=== PATIENT | male | born 1945 | race Caucasian/White ===

== ENCOUNTER 2016-10-22 20:25 | Emergency (ER) | payer OTHER ==
[~2016-10-22] VITALS: Ht 188 cm; Wt 108.0 kg
[~2016-10-22 20:25] MED LIST: ASPI81TA28 PO; ENOX100I INJ
[2016-10-22 20:27] VITALS: TEMP 36.7; Ht 188 cm; Wt 108.0 kg
--- NOTE | 2016-10-22 20:51 | EMERGENCY ROOM VISIT NOTE ---
ED Visit Note First contact with patient: 20:39 Staff note: I have reviewed the Patients chart and have discussed this case with my PA. I generally agree with the ED note and findings.
[2016-10-22] MEDS ORDERED: WARF2.5T8 PO ×2 (20:59)
[2016-10-22] MEDS ORDERED: XYLOCAINE 1%/SOD BICARB 20 ML VIAL INFIL ONE (21:00)
--- NOTE | 2016-10-22 21:16 | DIAGNOSTIC IMAGING REPORT ---
LEFT KNEE 2 VIEWS HISTORY: the injury/laceration/fall COMPARISON: None. FINDINGS: There is no fracture or dislocation. Small joint effusion. Marked prepatellar soft tissue swelling and a small anterior soft tissue laceration. Left total knee arthroplasty. IMPRESSION: No fractures. Prepatellar soft tissue swelling and a small anterior soft tissue laceration. Electronically signed by: Leo Webster M.D. 10/22/2016 9:15 PM Dictated Date/Time: 10/22/2016 9:14 PM
--- NOTE | 2016-10-22 21:25 | DIAGNOSTIC IMAGING REPORT ---
HEAD CT NONCONTRAST CT DOSE: 687.98 mGy.cm HISTORY: fall/head injury/patient on Coumadin TECHNIQUE: Multiaxial CT images of the head were performed without the use of intravenous contrast. Automated exposure control was utilized for this study. Comparison: Head CT 06/27/2010. Findings: The paranasal sinuses and left mastoid air cells are clear. Postoperative changes within the right mastoid air cells, unchanged. The calvarium and skull base are intact. There is no mass, hematoma, midline shift, acute infarct. White matter hypodensity is nonspecific but suggestive of microvascular ischemic change. The ventricles and sulci demonstrate mild age-related involutional changes. 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 Impression: No acute intracranial abnormality. Atrophy and microvascular ischemic changes. Electronically signed by: Leo Webster M.D. 10/22/2016 9:24 PM Dictated Date/Time: 10/22/2016 9:18 PM
--- NOTE | 2016-10-22 22:03 | EMERGENCY ROOM VISIT NOTE ---
History First contact with patient: 20:39 Chief Complaint: LACERATION/CUT (SUT/DERMABOND) Stated Complaint: CUT ON KNEE (BLEEDING - ON COUMADIN) Nursing Triage Summary: Patient states "I tripped over some rocks at my house and must have caught one and sliced open below my knee. I'm on coumadin too. It won't stop bleeding." History of Present Illness The patient is a 71 year old male who presents to the Emergency Room with complaints of laceration to his left knee. The patient states that he has significant peripheral neuropathy and falls frequently due to the neuropathy. He states he was walking on some rocks and tripped and fell striking his left knee on a rock. The patient is currently on Coumadin and could not get the bleeding to stop. The patient has been able to bear weight on the knee. He does admit to prior knee replacement of this knee. The patient states he had his blood work today and his INR was 2.0. He states his prior INR was 4.0. The patient also states that he hit his head on a counter when he lost his balance earlier today. He denies any headache, visual changes or dizziness. The patient denies any loss of consciousness. Review of Systems 10 system review was performed and was negative unless stated otherwise history of present illness. Past Medical/Surgical History Medical Problems: (1) Benign hypertension (2) Blood Clot (3) Cholecystectomy (4) left leg blood clot Family History Cancer Heart disease Social History Smoking Status: Never Smoker Alcohol Use: occasionally Marital Status: Housing Status: lives with family Occupation Status: employed Current/Historical Medications Scheduled Atorvastatin (Lipitor), 40 MG PO QPM Donepezil Hydrochloride (Aricept), 20 MG PO DAILY Fluticasone Propionate (Nasal) (Flonase Allergy Relief), 2 SPRAYS TASHIA DAILY Lisinopril (Lisinopril), 20 MG PO DAILY Multiple Vitamins W/ Minerals (Ocuvite Adult 50+), 1 CAP PO DAILY Multivitamin (Multivitamin), 1 TABLET PO DAILY Ofloxacin (Oph) (Ocuflox Oph Soln), 4 DROPS OTR WK Sertraline HCl (Sertraline HCl), 150 MG PO DAILY Warfarin Sod (Jantoven), 2.5 MG PO TUESDAY Warfarin Sod (Jantoven), 1.25 MG PO 6XWK Allergies Coded Allergies: Adhesives (Verified Allergy, Intermediate, RED SKIN, 10/22/16) Latex (Unverified Allergy, Unknown, RASH, 10/22/16) Physical Exam Vital Signs Date Time Temp Pulse Resp B/P (MAP) Pulse Ox O2 Delivery O2 Flow Rate FiO2 10/22/16 20:27 36.7 63 18 156/79 96 Room Air Physical Exam GENERAL: This 21-year-old white male appears in no acute distress. MENTAL Status: Alert and oriented 3. HEAD: The patient has a small palpable lump on the forehead with a superficial abrasion. No active bleeding noted EYES: PERRLA. EOMs intact. EARS: Canals clear. TMs without hemotympanum NEURO: Grossly intact LEFT KNEE: No gross bony deformity noted. Generalized edema noted of the knee. There is a 3 cm laceration just inferior to the patella. The bleeding has now stopped. The wound looks clean. The patient is able to flex and extend his knee. No ligament instability noted. Medical Decision & Procedures ER Provider Diagnostic Interpretation: LEFT KNEE 2 VIEWS HISTORY: the injury/laceration/fall COMPARISON: None. FINDINGS: There is no fracture or dislocation. Small joint effusion. Marked prepatellar soft tissue swelling and a small anterior soft tissue laceration. Left total knee arthroplasty. IMPRESSION: No fractures. Prepatellar soft tissue swelling and a small anterior soft tissue laceration. HEAD CT NONCONTRAST CT DOSE: 687.98 mGy.cm HISTORY: fall/head injury/patient on Coumadin TECHNIQUE: Multiaxial CT images of the head were performed without the use of intravenous contrast. Automated exposure control was utilized for this study. Comparison: Head CT 06/27/2010. Findings: The paranasal sinuses and left mastoid air cells are clear. Postoperative changes within the right mastoid air cells, unchanged. The calvarium and skull base are intact. There is no mass, hematoma, midline shift, acute infarct. White matter hypodensity is nonspecific but suggestive of microvascular ischemic change. The ventricles and sulci demonstrate mild age-related involutional changes. 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 Impression: No acute intracranial abnormality. Atrophy and microvascular ischemic changes. Electronically signed by: Leo Webster M.D. 10/22/2016 9:24 PM Electronically signed by: Leo Webster M.D. 10/22/2016 9:15 PM Procedure Wound Repair: This was performed by the PA student under my direct supervision. Complexity: Basic. Verbal consent was obtained after the risks and benefits were explained, including but not limited to bleeding, scarring, infection, pain, and bone/joint /nerve damage. The skin was prepped with betadine and a sterile field set. The wound was anesthetized with 4.8 ml of 1% buffered lidocaine. With direct pressure the bleeding subsided. Copious irrigation was performed using sterile saline. The wound was explored for foreign bodies and none found. Debridement was not performed. The wound edges were approximated using4-0 Ethilon with 7 simple interrupted sutures. Hemostasis and excellent approximation was achieved. Antibacterial ointment and a sterile dressing applied. Detailed wound care instructions and signs and symptoms of infection reviewed with the patient. No complications and the patient tolerated the procedure well. ED Course The patient's EMR and medication list were reviewed. The patient was evaluated by myself and independently by Dr. العلي. A CT of the head was ordered and interpreted by the radiologist as above without any acute findings. X-ray of the left knee was ordered and interpreted by myself and the radiologist as above without any acute findings. The patient was informed of the x-ray and CT findings.. The patient's blood pressure was 156/79. The patient was informed of the elevated blood pressure and was instructed to follow with his family doctor in 2 days for blood pressure recheck. The patient verbalized understanding. laceration repair was performed as above. The patient was discharged home in stable condition. Medical Decision Differential diagnosis include fracture versus contusion of the left knee. The decision was made to CT the patient's head since he had a prior fall earlier today due to his severe peripheral neuropathy. The patient is on Coumadin and his last INR was 4.0 prior to today's INR of 2.0. Impression Primary Impression: Laceration of knee, left Additional Impressions: Contusion of knee, left Head contusion Departure Information Dispostion Home / Self-Care Condition GOOD Referrals Leno Salas M.D. (PCP) Forms HOME CARE DOCUMENTATION FORM, IMPORTANT VISIT INFORMATION Patient Instructions ED Head Injury Closed, My [facility] Additional Instructions Follow head injury handout instructions. Any problems return to the ER. Keep wound clean and dry. No water on the area for 12-24 hrs then no soaking until sutures removed. Do not allow any crusting or dried blood to accumulate on sutures. If this occurs, use a 1:1 solution of hydrogen peroxide/water on a Q-tip to clean the wound. Use an antibiotic ointment for 3-4 days, then let wound dry. Suture removal in 14 days. Follow up sooner for any signs of infection (increasing redness, swelling, drainage). Ice and elevate for swelling and pain. Tylenol 650 mg every 6 hrs for pain. Your blood pressure was elevated at today's ER visit. Recommend follow-up with your family doctor in 2 days for blood pressure recheck. Problem Qualifiers Primary Impression: Laceration of knee, left Encounter type: initial encounter Qualified Codes: S81.012A - Laceration without foreign body, left knee, initial encounter Additional Impressions: Head contusion Encounter type: initial encounter Contusion of head detail: other part of head Qualified Codes: S00.83XA - Contusion of other part of head, initial encounter
[2016-10-22 22:10] VITALS: BP 150/86; PULSE 67; O2SAT 99
[2016-10-30] MEDS ORDERED: ATOR-24 PO (06:43)
[2016-10-30] MEDS ORDERED: LSN20 PO (06:44)
[2016-10-30] MEDS ORDERED: MULTCAP94 PO (06:45)
[2016-10-30] MEDS ORDERED: DONE10TA12 PO (06:46)
[2016-10-30] MEDS ORDERED: SERT1TAB92 PO (06:49)
[2016-10-30] MEDS ORDERED: FLUT0.15 NAE (06:49)
[2016-10-30] MEDS ORDERED: OFLO0.3S OTR (06:49)
[2016-10-30] MEDS ORDERED: MULT-506 PO (09:30)
[2016-11-03] MEDS ORDERED: DXY100 PO (18:02)
[2017-04-04] MEDS ORDERED: OXYC-57 PO (11:43)
== END 2016-10-22 22:29 | disposition home or self-care (01) ==
LOC: C.EDB 20:28 → C.EDD 22:29
DX: S81.012A Laceration without foreign body, left knee, initial encounter (principal); S80.02XA Contusion of left knee, initial encounter; S00.83XA Contusion of other part of head, initial encounter; W01.0XXA Fall on same level from slipping, tripping and stumbling without subsequent striking against object, initial encounter; S00.81XA Abrasion of other part of head, initial encounter; G62.9 Polyneuropathy, unspecified; R29.6 Repeated falls; I10 Essential (primary) hypertension; Z79.01 Long term (current) use of anticoagulants; Z86.718 Personal history of other venous thrombosis and embolism; Z96.652 Presence of left artificial knee joint

== ENCOUNTER 2016-10-30 15:24 | Inpatient (IN) | payer OTHER ==
[~2016-10-30] VITALS: Ht 188 cm; Wt 108.8 kg
[~2016-10-30 15:24] MED LIST changes: -ASPI81TA28 PO; +ATOR-24 PO; +DONE10TA12 PO; -ENOX100I INJ; +FLUT0.15 NAE; +LSN20 PO; +MULT-506 PO; +MULTCAP94 PO; +OFLO0.3S OTR; +SERT1TAB92 PO; +WARF2.5T8 PO
[2016-10-30] MEDS ORDERED: ONDANSETRON INJ 2 MG/ML 2 ML VIAL IV STA (15:45)
[2016-10-30] MEDS ORDERED: MoRPHine SULFATE 4 MG/ML 1 ML CARP\\VIAL IV STA (15:45)
[2016-10-30] MEDS ORDERED: SODIUM CHLORIDE 0.9% 1000ML 1,000 ML IV STA (16:03)
[2016-10-30 16:24] LABS: BASO % 0.2 %; BASO ABS # 0.01 K/uL (0-0.2); COMPLETE YES; EOS % 3.3 %; HEMATOCRIT 37.8 % (42-52); LYMPH % 24.5 %; LYMPH ABS # 1.34 K/uL (1.2-3.4); MEAN CELL VOLUME 97.9 fL (80-100); MEAN CORPUSCULAR HEMOGLOBIN 33.2 pg (25-34); MEAN CORPUSCULAR HGB CONC 33.9 g/dl (32-36); MEAN PLATELET VOLUME 12.6 fL (7.4-10.4); MONO % 21.2 %; NEUT % 50.8 %; PLATELET COUNT 199 K/uL (130-400); RED BLOOD COUNT 3.86 M/uL (4.7-6.1); WHITE BLOOD COUNT 5.46 K/uL (4.8-10.8)
[2016-10-30 16:35] LABS: INR 2.9 (0.9-1.1); PARTIAL THROMBOPLASTIN RATIO 1.7; PROTHROMBIN TIME (PATIENT) 32.2 SECONDS (9.0-12.0)
--- NOTE | 2016-10-30 16:36 | DIAGNOSTIC IMAGING REPORT ---
LEFT TIBIA AND FIBULA 2 VIEWS; LEFT ANKLE 3 VIEWS CLINICAL HISTORY: Left leg swelling. FINDINGS: AP and crosstable lateral views of the left tibia and fibula with 3 views of the left ankle are obtained. No prior studies are available for comparison at the time of dictation. The skeletal structures are osteopenic. There is no radiographic evidence of left tibial or fibular fracture. No fracture is seen at the ankle joint. The ankle mortise is intact. A left knee arthroplasty is partially visualized. There is no ankle joint effusion. Diffuse soft tissue edema is seen throughout the imaged left lower extremity. No subcutaneous gas is seen. There are tiny dorsal and plantar calcaneal enthesophytes. IMPRESSION: Diffuse soft tissue edema with no acute bony abnormality identified involving the left tibia or fibula or at the left ankle joint. Electronically signed by: Kel Brooks M.D. 10/30/2016 4:35 PM Dictated Date/Time: 10/30/2016 4:32 PM
--- NOTE | 2016-10-30 16:38 | DIAGNOSTIC IMAGING REPORT ---
LEFT KNEE 3 VIEWS CLINICAL HISTORY: Left knee pain and swelling. FINDINGS: AP, crosstable lateral, and sunrise views of left knee are compared to study dated 10/22/2016. The skeletal structures are osteopenic. No fracture is identified. A left knee arthroplasty is in near anatomic alignment. There has been undersurface remodeling of the patella. No periprosthetic lucency is identified. A calcified fabella is incidentally noted. There is marked prepatellar soft tissue edema, as well as soft tissue swelling around the knee. A small joint effusion is noted. IMPRESSION: 1. Diffuse soft tissue edema, greatest an the prepatellar region. No acute bony abnormality is seen in the left knee and the findings are similar to the 10/22/2016 examination. 2. A left knee arthroplasty is in near anatomic alignment. Electronically signed by: Kel Brooks M.D. 10/30/2016 4:37 PM Dictated Date/Time: 10/30/2016 4:35 PM
[2016-10-30 16:42] LABS: BUN/CREATININE RATIO 11.4 (10-20); C-REACTIVE PROTEIN 1.82 mg/dl (0-0.29); CALCIUM 8.9 mg/dl (8.5-10.1); CREATININE 1.2 mg/dl (0.60-1.40); POTASSIUM 4.3 mmol/L (3.5-5.1)
[2016-10-30 16:46] LABS: ALB/GLOB RATIO 0.8 (0.9-2); CKMB/CK RATIO 1.5 (0-3.0)
[2016-10-30] MEDS ORDERED: SODIUM CHLORIDE 0.9% IV STA (16:53)
[2016-10-30] MEDS ORDERED: VANCOMYCIN IV STA (16:53)
[2016-10-30] MEDS ORDERED: PIPERACILLIN/TAZOBACTAM 4.5 GM/100ML D5W IV STA (16:53)
[2016-10-30] MEDS ORDERED: DUTACAP PO (16:56)
--- NOTE | 2016-10-30 17:19 | DIAGNOSTIC IMAGING REPORT ---
ULTRASOUND LEFT LOWER EXTREMITY VENOUS CLINICAL HISTORY: Left leg swelling. COMPARISON STUDY: Left lower extremity venous ultrasound dated 04/10/2016. TECHNIQUE: Real-time, grayscale, and color Doppler sonography of the deep veins of the left lower extremity was performed from the inguinal crease to the calf. Compression and augmentation were utilized. FINDINGS: There is a small amount of nonocclusive and likely chronic deep venous thrombosis identified within the mid to distal left superficial femoral vein and within the left popliteal vein. Some of this was clearly seen on the 04/10/2016 examination. This extends into the calf within the posterior tibial and peroneal veins. The common femoral and proximal superficial femoral vein are patent and normally compressible. There is partial duplication of the superficial femoral vein. The greater saphenous vein and the profunda femoris vein at the junction with the common femoral vein are clear. Simultaneous soft tissue edema is noted in the calf. IMPRESSION: There is trace and chronic appearing nonocclusive deep venous thrombosis identified in the mid to distal left superficial femoral as well as the left popliteal veins which extends into the calf. Electronically signed by: Kel Brooks M.D. 10/30/2016 5:18 PM Dictated Date/Time: 10/30/2016 5:12 PM
[2016-10-30] MEDS ORDERED: VANCOMYCIN INJ 2,650 MG in SODIUM CHLORIDE 0.9% 500ML 500 ML IV ONE (17:30)
--- NOTE | 2016-10-30 18:23 | EMERGENCY ROOM VISIT NOTE ---
ED Visit Note First contact with patient: 15:34 The patient was seen and examined with Cullen Yarbrough PA-C. I agree with the history, physical and findings. Please see the note for disposition and details
--- NOTE | 2016-10-30 18:37 | History and Physical ---
History & Physical Date & Time of Service: Oct 30, 2016 at 18:36 Chief Complaint: Knee And Ankle Pain, Possible Infection Primary Care Physician: Leno Salas M.D. History of Present Illness Source: patient, family ( ) This is a 71 yo Male with past medical hx of DVT on chronic anticoagulation with Coumadin , HTN , hyperlipidemia --who sustained a fall on 10/22/16 while tripping on a rock , striking his left against the rock , unable to stop bleeding -( on Coumadin ) pt mentions his gait has been unstable due to peripheral neuropathy , leading his to loss balance and fall was evaluated in ED -found to have 3 cm skin laceration on left inferior patella region , no bleeding noted, wound appeared to be clean , pt was able to flex and bend his knee xray of left knee showed : no Fx , prepatellar soft tissue swelling and a small anterior soft tissue laceration , Left knee laceration was sutured , antibacterial ointment and sterile dressing was placed pt was discharged home , instructed for stitch removal in 14 days at home pt continued to have pain and swelling on left knee which progressed to left lower leg and ankle region had progressive left lower ext swelling and erythema , increased tenderness today -unable to bear wt , has constant pain 7/10 -throbbing developed brisk bleeding on left knee laceration site did not had any fever or chills , no dizzy spell no further fall or trauma to the site called Dr Garcia office , pt was directed to come to ED for evaluation In the ER -pt;s left leg found to be diffusely edematous -worse since exam on marked erythema and tenderness with increased warmth no active bleeding noted on knee laceration site WBC count wnl /elevated for ESR , mild elevation of lactic acid Xray of TIB /fib , ankle and knee shows diffuse soft tissue swelling , no joint fluid noted on knee and ankle Xray Past Medical/Surgical History Medical Problems: (1) Benign hypertension Status: Chronic (2) Cholecystectomy Status: Chronic (3) left leg blood clot Status: Resolved Family History Cancer Heart disease Social History Smoking Status: Never Smoker Marital Status: Occupational Status: employed Immunizations History of Influenza Vaccine: Yes History of Tetanus Vaccine?: Yes History of Pneumococcal: Yes Pneumococcal Date: October 03, 2008 History of Hepatitis B Vaccine: No Multi-Drug Resistant Organisms History of MDRO: No Allergies Coded Allergies: Adhesives (Verified Allergy, Intermediate, RED SKIN, 10/22/16) Latex (Unverified Allergy, Unknown, RASH, 10/22/16) Home Medications Scheduled Atorvastatin (Lipitor), 40 MG PO QPM Donepezil Hydrochloride (Aricept), 20 MG PO DAILY Dutasteride-Tamsulosin Hcl (Alba), 1 CAP PO DAILY Fluticasone Propionate (Nasal) (Flonase Allergy Relief), 2 SPRAYS TASHIA DAILY Lisinopril (Lisinopril), 20 MG PO DAILY Multiple Vitamins W/ Minerals (Ocuvite Adult 50+), 1 CAP PO DAILY Multivitamin (Multivitamin), 1 TABLET PO DAILY Ofloxacin (Oph) (Ocuflox Oph Soln), 4 DROPS OTR WK Sertraline HCl (Sertraline HCl), 150 MG PO DAILY Warfarin Sod (Jantoven), 2.5 MG PO DAILY Review of Systems Constitutional: No fever, No chills, No sweats, No weight loss, No weakness, No fatigue, No problem reported Respiratory: No cough, No sputum, No wheezing, No shortness of breath, No dyspnea on exertion, No dyspnea at rest, No hemoptysis, No problem reported Cardiovascular: No chest pain, No orthopnea, No PND, No edema, No claudication , No palpitations, No problem reported Abdomen: No pain, No nausea, No vomiting, No diarrhea, No constipation, No GI bleeding, No problem reported Musculoskeletal: + joint pain, + swelling, + calf pain, + problem reported (in creasesd swelling , pain , tenderness on left leg, ankle and knee ) Neurologic: + balance problems (chronic ) Hematologic / Lymphatic: + clotting problems (prior hx of DVT on Coumadin ) Physical Exam Vital Signs Date Time Temp Pulse Resp B/P (MAP) Pulse Ox O2 Delivery O2 Flow Rate FiO2 10/30/16 17:22 52 15 114/61 99 Room Air 10/30/16 16:07 57 10/30/16 16:04 96 Room Air 10/30/16 15:30 36.7 76 20 97/58 98 Room Air General Appearance: no apparent distress Head: normocephalic Eyes: funduscopic exam normal Neck: supple Respiratory/Chest: lungs clear, normal breath sounds, no respiratory distress Cardiovascular: regular rate, rhythm Abdomen/GI: normal bowel sounds, non tender, soft Extremities/Musculoskelatal: + inflammation (increased pain , warmth and tenderness on left leg ), + pedal edema (+ 3 left lower ext edema , normal exam of rt leg ), + swelling (left leg , ankle and foot swelling ), + pertinent finding (crusted blood on left knee laceration , no active bleeding noted ) Neurologic/Psych: no motor/sensory deficits, alert, normal mood/affect, oriented x 3 Skin: + pertinent finding (+ erythema on left leg , ankle and foot ) Diagnostics Laboratory Results Results Past 24 Hours Test 10/30/16 15:59 10/30/16 16:00 10/30/16 16:17 Range/Units Bedside Lactic Acid Venous 1.88 0.90-1.70 mmol/L White Blood Count 5.46 4.8-10.8 K/uL Red Blood Count 3.86 4.7-6.1 M/uL Hemoglobin 12.8 14.0-18.0 g/dL Hematocrit 37.8 42-52 % Mean Corpuscular Volume 97.9 80-100 fL Mean Corpuscular Hemoglobin 33.2 25-34 pg Mean Corpuscular Hemoglobin Concent 33.9 32-36 g/dl Platelet Count 199 130-400 K/uL Mean Platelet Volume 12.6 7.4-10.4 fL Neutrophils (%) (Auto) 50.8 % Lymphocytes (%) (Auto) 24.5 % Monocytes (%) (Auto) 21.2 % Eosinophils (%) (Auto) 3.3 % Basophils (%) (Auto) 0.2 % Neutrophils # (Auto) 2.77 1.4-6.5 K/uL Lymphocytes # (Auto) 1.34 1.2-3.4 K/uL Monocytes # (Auto) 1.16 0.11-0.59 K/uL Eosinophils # (Auto) 0.18 0-0.5 K/uL Basophils # (Auto) 0.01 0-0.2 K/uL RDW Standard Deviation 46.6 36.4-46.3 fL RDW Coefficient of Variation 13.0 11.5-14.5 % Immature Granulocyte % (Auto) 0.0 % Immature Granulocyte # (Auto) 0.00 0.00-0.02 K/uL Erythrocyte Sedimentation Rate 59 0-14 mm/hr Prothrombin Time 32.2 9.0-12.0 SECONDS Prothromb Time International Ratio 2.9 0.9-1.1 Activated Partial Thromboplast Time 43.0 21.0-31.0 SECONDS Partial Thromboplastin Ratio 1.7 Sodium Level 142 136-145 mmol/L Potassium Level 4.3 3.5-5.1 mmol/L Chloride Level 107 98-107 mmol/L Carbon Dioxide Level 27 21-32 mmol/L Anion Gap 8.0 3-11 mmol/L Blood Urea Nitrogen 14 7-18 mg/dl Creatinine 1.20 0.60-1.40 mg/dl Est Creatinine Clear Calc Drug Dose 75.7 ml/min Estimated GFR () 71.1 Estimated GFR (Non- 61.3 BUN/Creatinine Ratio 11.4 10-20 Random Glucose 94 70-99 mg/dl Calcium Level 8.9 8.5-10.1 mg/dl Total Bilirubin 0.4 0.2-1 mg/dl Aspartate Amino Transf (AST/SGOT) 27 15-37 U/L Alanine Aminotransferase (ALT/SGPT) 34 12-78 U/L Alkaline Phosphatase 70 45-117 U/L Total Creatine Kinase 119 39-308 U/L Creatine Kinase MB 1.8 0.5-3.6 ng/ml Creatine Kinase MB Ratio 1.5 0-3.0 C-Reactive Protein 1.82 0-0.29 mg/dl Total Protein 7.8 6.4-8.2 gm/dl Albumin 3.5 3.4-5.0 gm/dl Globulin 4.3 2.5-4.0 gm/dl Albumin/Globulin Ratio 0.8 0.9-2 VX-Vfi-C-Type Natriuretic Peptide 196 0-900 pg/ml Microbiology Results 10/30/16 Blood Culture, Received Pending 10/30/16 Blood Culture, Received Pending Diagnostic Radiology LEFT TIBIA AND FIBULA 2 VIEWS; LEFT ANKLE 3 VIEWS CLINICAL HISTORY: Left leg swelling. FINDINGS: AP and crosstable lateral views of the left tibia and fibula with 3 views of the left ankle are obtained. No prior studies are available for comparison at the time of dictation. The skeletal structures are osteopenic. There is no radiographic evidence of left tibial or fibular fracture. No fracture is seen at the ankle joint. The ankle mortise is intact. A left knee arthroplasty is partially visualized. There is no ankle joint effusion. Diffuse soft tissue edema is seen throughout the imaged left lower extremity. No subcutaneous gas is seen. There are tiny dorsal and plantar calcaneal enthesophytes. IMPRESSION: Diffuse soft tissue edema with no acute bony abnormality identified involving the left tibia or fibula or at the left ankle joint. VENOUS USG OF LEFT LOWER EXT : IMPRESSION: There is trace and chronic appearing nonocclusive deep venous thrombosis identified in the mid to distal left superficial femoral as well as the left popliteal veins which extends into the calf. LEFT TIBIA AND FIBULA 2 VIEWS; LEFT ANKLE 3 VIEWS CLINICAL HISTORY: Left leg swelling. FINDINGS: AP and crosstable lateral views of the left tibia and fibula with 3 views of the left ankle are obtained. No prior studies are available for comparison at the time of dictation. The skeletal structures are osteopenic. There is no radiographic evidence of left tibial or fibular fracture. No fracture is seen at the ankle joint. The ankle mortise is intact. A left knee arthroplasty is partially visualized. There is no ankle joint effusion. Diffuse soft tissue edema is seen throughout the imaged left lower extremity. No subcutaneous gas is seen. There are tiny dorsal and plantar calcaneal enthesophytes. IMPRESSION: Diffuse soft tissue edema with no acute bony abnormality identified involving the left tibia or fibula or at the left ankle joint. Impression Assessment and Plan LEFT LOWER EXT CELLULITIS : possible sources of infection -non healing left pre patellar lacerating wound / skin tear presents with diffuse soft tissue swelling involving left knee, lower leg and ankle no evidence of sepsis no fever or chills ,normal white count , vitals stable mild elevation of lactic acid admit to medical floor ordered for IV Zosyn /vancomycin blood culture ordered cont IVF repeat Lactic acid level in AM HX OF DVT on therapeutic anticoagulation with Coumadin Lower ext Doppler shows chronic DVT INR 2.9 will hold Coumadin for now resume as INR ~2 HTN : BP stable cont Lisinopril 20 mg daily CKD STAGE 3 : Cr at baseline IVF for infection /elevated lactic acid follow PRP avoid NSAID's , nephrotoxins CHRONIC RT EAR MASTOIDITIS : cont Ofloxacin ear drop as out pt dose CHRONIC ALLERGIC RHINITIS : on Zyrtec CHRONIC GAIT DISTURBANCE /POLYNEUROPATHY : mentions of losing balance and falls recently PT/OT eval requested FULL CODE DVT PROPHYLAXIS: INR elevated DISPOSITION ; expected to be discharged home when medically stable Medicine follow up with Dr Garcia Level of Care Med/Surg Resuscitation Status FULL RESUSCITATION VTE Prophylaxis Given or contraindicated: Warfarin (Coumadin) Additional Copies To Leno Salas M.D.
--- NOTE | 2016-10-30 18:53 | EMERGENCY ROOM VISIT NOTE ---
History First contact with patient: 15:34 Chief Complaint: SWELLING TO EXTREMITY Stated Complaint: KNEE AND ANKLE PAIN, POSSIBLE INFECTION History of Present Illness The patient is a 71 year old male who presents to the Emergency Room via private vehicle accompanied by family with complaints of "knee and ankle pain, possible infection". The patient states that 1 week ago, he had a fall which required laceration repair of his left anterior knee. He states that he been doing well, but did develop worsening edema in the left lower extremity. He states he has some edema at baseline secondary to chronic thrombus, but this is worse. He states that the pain significantly increased yesterday, to include swelling and warmth as well as redness. He also noted minimal bleeding out of the knee yesterday. 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 There is a [place] filter in place. His tetanus is up-to-date. He denies any antibiotics recently. He denies any fevers or chills. Review of Systems A complete 10-point Review of Systems was discussed with the patient, with pertinent positives and negatives listed in the History of Present Illness. All remaining Review of Systems questions can be considered negative unless otherwise specified. Past Medical/Surgical History Medical Problems: (1) Benign hypertension (2) Blood Clot (3) Cellulitis (4) Cholecystectomy (5) left leg blood clot Family History Cancer Heart disease Social History Smoking Status: Never Smoker Alcohol Use: occasionally Marital Status: Housing Status: lives with family Occupation Status: employed Current/Historical Medications Scheduled Atorvastatin (Lipitor), 40 MG PO QPM Donepezil Hydrochloride (Aricept), 20 MG PO DAILY Dutasteride-Tamsulosin Hcl (Alba), 1 CAP PO DAILY Fluticasone Propionate (Nasal) (Flonase Allergy Relief), 2 SPRAYS TASHIA DAILY Lisinopril (Lisinopril), 20 MG PO DAILY Multiple Vitamins W/ Minerals (Ocuvite Adult 50+), 1 CAP PO DAILY Multivitamin (Multivitamin), 1 TABLET PO DAILY Ofloxacin (Oph) (Ocuflox Oph Soln), 4 DROPS OTR WK Sertraline HCl (Sertraline HCl), 150 MG PO DAILY Warfarin Sod (Jantoven), 2.5 MG PO DAILY Allergies Coded Allergies: Adhesives (Verified Allergy, Intermediate, RED SKIN, 10/22/16) Latex (Unverified Allergy, Unknown, RASH, 10/22/16) Physical Exam Vital Signs Date Time Temp Pulse Resp B/P (MAP) Pulse Ox O2 Delivery O2 Flow Rate FiO2 10/30/16 17:22 52 15 114/61 99 Room Air 10/30/16 16:07 57 10/30/16 16:04 96 Room Air 10/30/16 15:30 36.7 76 20 97/58 98 Room Air Physical Exam VITAL SIGNS - Vital signs and nursing notes were reviewed. Patient is afebrile , hypotensive at 97/58, non-tachycardic and saturating well on room air 98%. GENERAL -71-year-old male appearing his stated age who is in no acute distress. Communicates well with provider and answers questions appropriately. SKIN - No petechial rashes. The left leg is significantly edematous, with erythema around the left knee extending to the left toes. No active hemorrhaging or bleeding. There is a healing left anterior knee sutured wound. HEAD - NC/AT. EYES - Sclera anicteric. Palpebral conjunctiva pink and moist with no injection noted. EARS - No deformities of external structures noted on gross examination bilaterally. NOSE - Midline and without cyanosis. MOUTH/OROPHARYNX - Without perioral cyanosis. NECK -no meningismus. LUNGS - Chest wall symmetric without accessory muscle use, intercostals retractions, or central cyanosis. Normal vesicular breath sounds CTA B/L. No wheezes, rales, or rhonchi appreciated. CARDIAC - RRR with S1/S2. No murmur, rubs, or gallops appreciated. EXTREMITIES - the entire left lower extremity is edematous, with erythema extending from the left knee to the left toes. The skin is very tender to palpation from the left knee to the toes. There is increased warmth of the left leg compared to the right leg. He is neurovascularly intact in this region. +5/5 strength noted in UE/LE bilaterally. Medical Decision & Procedures ER Provider Diagnostic Interpretation: LEFT TIBIA AND FIBULA 2 VIEWS; LEFT ANKLE 3 VIEWS CLINICAL HISTORY: Left leg swelling. FINDINGS: AP and crosstable lateral views of the left tibia and fibula with 3 views of the left ankle are obtained. No prior studies are available for comparison at the time of dictation. The skeletal structures are osteopenic. There is no radiographic evidence of left tibial or fibular fracture. No fracture is seen at the ankle joint. The ankle mortise is intact. A left knee arthroplasty is partially visualized. There is no ankle joint effusion. Diffuse soft tissue edema is seen throughout the imaged left lower extremity. No subcutaneous gas is seen. There are tiny dorsal and plantar calcaneal enthesophytes. IMPRESSION: Diffuse soft tissue edema with no acute bony abnormality identified involving the left tibia or fibula or at the left ankle joint. Electronically signed by: Kel Brooks M.D. 10/30/2016 4:35 PM Dictated Date/Time: 10/30/2016 4:32 PM LEFT KNEE 3 VIEWS CLINICAL HISTORY: Left knee pain and swelling. FINDINGS: AP, crosstable lateral, and sunrise views of left knee are compared to study dated 10/22/2016. The skeletal structures are osteopenic. No fracture is identified. A left knee arthroplasty is in near anatomic alignment. There has been undersurface remodeling of the patella. No periprosthetic lucency is identified. A calcified fabella is incidentally noted. There is marked prepatellar soft tissue edema, as well as soft tissue swelling around the knee. A small joint effusion is noted. IMPRESSION: 1. Diffuse soft tissue edema, greatest an the prepatellar region. No acute bony abnormality is seen in the left knee and the findings are similar to the 10/22/2016 examination. 2. A left knee arthroplasty is in near anatomic alignment. Electronically signed by: Kel Brooks M.D. 10/30/2016 4:37 PM Dictated Date/Time: 10/30/2016 4:35 PM ULTRASOUND LEFT LOWER EXTREMITY VENOUS CLINICAL HISTORY: Left leg swelling. COMPARISON STUDY: Left lower extremity venous ultrasound dated 04/10/2016. TECHNIQUE: Real-time, grayscale, and color Doppler sonography of the deep veins of the left lower extremity was performed from the inguinal crease to the calf. Compression and augmentation were utilized. FINDINGS: There is a small amount of nonocclusive and likely chronic deep venous thrombosis identified within the mid to distal left superficial femoral vein and within the left popliteal vein. Some of this was clearly seen on the 04/10/2016 examination. This extends into the calf within the posterior tibial and peroneal veins. The common femoral and proximal superficial femoral vein are patent and normally compressible. There is partial duplication of the superficial femoral vein. The greater saphenous vein and the profunda femoris vein at the junction with the common femoral vein are clear. Simultaneous soft tissue edema is noted in the calf. IMPRESSION: There is trace and chronic appearing nonocclusive deep venous thrombosis identified in the mid to distal left superficial femoral as well as the left popliteal veins which extends into the calf. Electronically signed by: Kel Brooks M.D. 10/30/2016 5:18 PM Dictated Date/Time: 10/30/2016 5:12 PM LEFT TIBIA AND FIBULA 2 VIEWS; LEFT ANKLE 3 VIEWS CLINICAL HISTORY: Left leg swelling. FINDINGS: AP and crosstable lateral views of the left tibia and fibula with 3 views of the left ankle are obtained. No prior studies are available for comparison at the time of dictation. The skeletal structures are osteopenic. There is no radiographic evidence of left tibial or fibular fracture. No fracture is seen at the ankle joint. The ankle mortise is intact. A left knee arthroplasty is partially visualized. There is no ankle joint effusion. Diffuse soft tissue edema is seen throughout the imaged left lower extremity. No subcutaneous gas is seen. There are tiny dorsal and plantar calcaneal enthesophytes. IMPRESSION: Diffuse soft tissue edema with no acute bony abnormality identified involving the left tibia or fibula or at the left ankle joint. Electronically signed by: Kel Brooks M.D. 10/30/2016 4:35 PM Dictated Date/Time: 10/30/2016 4:32 PM Laboratory Results 10/30/16 16:00 Red Blood Count 3.86, Mean Corpuscular Volume 97.9, Mean Corpuscular Hemoglobin 33.2, Mean Corpuscular Hemoglobin Concent 33.9, Mean Platelet Volume 12.6, Neutrophils (%) (Auto) 50.8, Lymphocytes (%) (Auto) 24.5, Monocytes (%) (Auto) 21.2, Eosinophils (%) (Auto) 3.3, Basophils (%) (Auto) 0.2, Neutrophils # (Auto ) 2.77, Lymphocytes # (Auto) 1.34, Monocytes # (Auto) 1.16, Eosinophils # (Auto ) 0.18, Basophils # (Auto) 0.01 10/30/16 16:00 Test 10/30/16 15:59 10/30/16 16:00 10/30/16 16:17 Bedside Lactic Acid Venous 1.88 mmol/L (0.90-1.70) White Blood Count 5.46 K/uL (4.8-10.8) Red Blood Count 3.86 M/uL (4.7-6.1) Hemoglobin 12.8 g/dL (14.0-18.0) Hematocrit 37.8 % (42-52) Mean Corpuscular Volume 97.9 fL (80-100) Mean Corpuscular Hemoglobin 33.2 pg (25-34) Mean Corpuscular Hemoglobin Concent 33.9 g/dl (32-36) Platelet Count 199 K/uL (130-400) Mean Platelet Volume 12.6 fL (7.4-10.4) Neutrophils (%) (Auto) 50.8 % Lymphocytes (%) (Auto) 24.5 % Monocytes (%) (Auto) 21.2 % Eosinophils (%) (Auto) 3.3 % Basophils (%) (Auto) 0.2 % Neutrophils # (Auto) 2.77 K/uL (1.4-6.5) Lymphocytes # (Auto) 1.34 K/uL (1.2-3.4) Monocytes # (Auto) 1.16 K/uL (0.11-0.59) Eosinophils # (Auto) 0.18 K/uL (0-0.5) Basophils # (Auto) 0.01 K/uL (0-0.2) RDW Standard Deviation 46.6 fL (36.4-46.3) RDW Coefficient of Variation 13.0 % (11.5-14.5) Immature Granulocyte % (Auto) 0.0 % Immature Granulocyte # (Auto) 0.00 K/uL (0.00-0.02) Erythrocyte Sedimentation Rate 59 mm/hr (0-14) Prothrombin Time 32.2 SECONDS (9.0-12.0) Prothromb Time International Ratio 2.9 (0.9-1.1) Activated Partial Thromboplast Time 43.0 SECONDS (21.0-31.0) Partial Thromboplastin Ratio 1.7 Anion Gap 8.0 mmol/L (3-11) Est Creatinine Clear Calc Drug Dose 75.7 ml/min Estimated GFR () 71.1 Estimated GFR (Non- 61.3 BUN/Creatinine Ratio 11.4 (10-20) Calcium Level 8.9 mg/dl (8.5-10.1) Total Bilirubin 0.4 mg/dl (0.2-1) Aspartate Amino Transf (AST/SGOT) 27 U/L (15-37) Alanine Aminotransferase (ALT/SGPT) 34 U/L (12-78) Alkaline Phosphatase 70 U/L (45-117) Total Creatine Kinase 119 U/L (39-308) Creatine Kinase MB 1.8 ng/ml (0.5-3.6) Creatine Kinase MB Ratio 1.5 (0-3.0) C-Reactive Protein 1.82 mg/dl (0-0.29) Total Protein 7.8 gm/dl (6.4-8.2) Albumin 3.5 gm/dl (3.4-5.0) Globulin 4.3 gm/dl (2.5-4.0) Albumin/Globulin Ratio 0.8 (0.9-2) [id number]-Type Natriuretic Peptide 196 pg/ml (0-900) Medications Administered Medications (Trade) Dose Ordered Sig/Joseph Route Start Time Stop Time Status Last Admin Dose Admin Morphine Sulfate (MoRPHine SULFATE INJ) 4 mg NOW STAT IV 10/30/16 15:45 10/30/16 15:47 DC 10/30/16 16:06 4 MG Ondansetron HCl (Zofran Inj) 4 mg NOW STAT IV 10/30/16 15:45 10/30/16 15:47 DC 10/30/16 16:06 4 MG Sodium Chloride 1,000 ml @ 999 mls/hr Q1H1M STAT IV 10/30/16 16:03 10/30/16 17:08 DC 10/30/16 16:03 999 MLS/HR Piperacillin Sod/ Tazobactam Sod (Zosyn Iv) 4.5 gm NOW STAT IV 10/30/16 16:53 10/30/16 16:57 DC 10/30/16 16:53 4.5 GM Vancomycin HCl 2650 mg/Sodium Chloride 553 ml @ 200 mls/hr 1730 ONCE IV 10/30/16 17:30 10/30/16 20:15 DC 10/30/16 17:33 200 MLS/HR Medical Decision Patient was seen and evaluated as above. After obtaining a thorough history and physical examination IV access was initiated and the above workup was performed. Patient was somewhat hypotensive upon his arrival, and his leg on physical examination is concerning for that of cellulitis, if not early sepsis when taking into account overall presentation. For this reason lactic and blood cultures will be drawn. Lactic was slightly elevated at 1.88, blood cultures pending. No significant leukocytosis. There is an anemia noted. This anemia appears to be chronic in nature. Hemoglobin 12.8. ESR high at 59, INR 2.9, electrolytes unremarkable, creatinine high at 1.2, point care lactic high at 1.88, C-reactive protein high at 1.82. X-rays were obtained of the extremity to rule out large effusion and none were seen. There is soft tissue edema. DVT study was also obtained to rule out enlarging clot and this was also relatively consistent with previous study. Case was discussed with my attending, who also personally evaluated the patient. He was bolused with 1 L fluid, and given vancomycin and Zosyn after discussing the case with the in- house pharmacist. This will be to cover any potential enlarging cellulitis, secondary to its size. There is also concern for potential sepsis, therefore close monitoring is recommended and I believe this is best obtained in the inpatient setting. I did discuss the case with Dr. Cam, who agreed to evaluate the patient. Please refer to further documentation regarding the patient's stay. In evaluation treatment this patient the following differential diagnoses were entertained: Septic joint, cellulitis, DVT, among others. Impression Primary Impression: Swelling of left extremity Additional Impressions: Anemia Cellulitis Blood Clot DVT (deep venous thrombosis) Departure Information Dispostion Admitted as an inpatient Condition FAIR Referrals Leno Salas M.D. (PCP) Patient Instructions My [facility] Problem Qualifiers
[2016-10-30] MEDS ORDERED: ZOLPIDEM TARTRATE 5 MG TAB PO PRN (19:15)
[2016-10-30] MEDS ORDERED: ONDANSETRON INJ 2 MG/ML 2 ML VIAL IV PRN (19:15)
[2016-10-30] MEDS ORDERED: MAGNESIUM HYDROXIDE SUSP 30 ML UDC PO PRN (19:15)
[2016-10-30] MEDS ORDERED: MoRPHine SULFATE 2 MG/ML CARP IV PRN (19:15)
[2016-10-30] MEDS ORDERED: ALUMINUM/MAGNESIUM/SIMETH (MAALOX MAX) 30 ML UDC PO PRN (19:15)
[2016-10-30] MEDS ORDERED: ACETAMINOPHEN 325 MG TAB PO PRN (19:15)
[2016-10-30] MEDS ORDERED: POLYETHYLENE (MIRALAX) 17 GM PACK PO PRN (19:45)
[2016-10-30 20:00] VITALS: BP 139/68; PULSE 55; TEMP 36.8; O2SAT 98; Ht 188 cm; Wt 108.8 kg
[2016-10-30] MEDS ORDERED: SODIUM CHLORIDE 0.9% 1000ML 1,000 ML IV SCH (20:45)
[2016-10-30] MEDS ORDERED: PIPERACILL/TAZOBAC CONSULT ACTIVE PRN (21:00)
--- NOTE | 2016-10-30 21:08 | Pharmacy Progress Note ---
Pharmacy Abx Initial Consult Date of Service Oct 30, 2016. Pharmacy Dosing Scope Date of Consult: 10/30/16 Consultation requested by: Dr. Cam Pharmacy is consulted to initiate Vancomycin IV dosing therapy, order appropriate labs and adjust drug dose/frequency. Subjective The patient is a 71 year old male admitted on Oct 30, 2016 at 18:37. Objective Height (Feet): 6 Height (Inches): 2.00 Weight (Kilograms): 106.900 Vital Signs (Past 12Hrs) Vital Signs Past 12 Hours Date Time Temp Pulse Resp B/P (MAP) Pulse Ox O2 Delivery O2 Flow Rate FiO2 10/30/16 19:21 53 18 121/73 98 Room Air 10/30/16 17:22 52 15 114/61 99 Room Air 10/30/16 16:07 57 10/30/16 16:04 96 Room Air 10/30/16 15:30 36.7 76 20 97/58 98 Room Air Lab Results (24Hrs) Laboratory Tests (24 Hours) Test 10/30/16 16:00 C-Reactive Protein 1.82 mg/dl (0-0.29) H Erythrocyte Sedimentation Rate 59 mm/hr (0-14) H White Blood Count 5.46 K/uL (4.8-10.8) Red Blood Count 3.86 M/uL (4.7-6.1) L Hemoglobin 12.8 g/dL (14.0-18.0) L Hematocrit 37.8 % (42-52) L Mean Corpuscular Volume 97.9 fL (80-100) Mean Corpuscular Hemoglobin 33.2 pg (25-34) Mean Corpuscular Hemoglobin Concent 33.9 g/dl (32-36) Platelet Count 199 K/uL (130-400) Mean Platelet Volume 12.6 fL (7.4-10.4) H Neutrophils (%) (Auto) 50.8 % Lymphocytes (%) (Auto) 24.5 % Monocytes (%) (Auto) 21.2 % Eosinophils (%) (Auto) 3.3 % Basophils (%) (Auto) 0.2 % Neutrophils # (Auto) 2.77 K/uL (1.4-6.5) Lymphocytes # (Auto) 1.34 K/uL (1.2-3.4) Monocytes # (Auto) 1.16 K/uL (0.11-0.59) H Eosinophils # (Auto) 0.18 K/uL (0-0.5) Basophils # (Auto) 0.01 K/uL (0-0.2) Total Creatine Kinase 119 U/L (39-308) Micro Results Date/Time Source Procedure Growth Status 10/30/16 16:10 Blood Blood Culture Pending Received 10/30/16 16:00 Blood Blood Culture Pending Received Assessment & Plan Assessment 71 year old male with LLE cellulitis. Plan Vancomycin for treatment of Cellulitis. Vancomycin IV * Loading dose: 2650 mg (25 mg/kg) * Maintenance dose: 1600 mg IV (15 mg/kg) every 16 hours. * Estimated: Ke = 0.067 /hr, t1/2 = 10.3 hrs, Vd = 0.7 L/kg * Goal trough level for Cellulitis ~ 15 mcg/mL * Trough level ordered for 11/01/16 before dose at 1400. Pharmacy will continue to follow and will adjust dose/frequency as necessary. Thank you.
[2016-10-30] MEDS ORDERED: VANCOMYCIN CONSULT ACTIVE PRN (21:15)
[2016-10-30] MEDS: PIPERACILL/TAZOBAC IV 3.375 GM in DEXTROSE 5% 100ML 100 ML IV SCH (21:45)
[2016-10-30] MEDS: ATORVASTATIN 40 MG TAB PO SCH (21:49)
[2016-10-30 23:30] VITALS: BP 130/76; PULSE 47; TEMP 36.7; O2SAT 98
[2016-10-31] MEDS: VANCOMYCIN INJ 1,600 MG in SODIUM CHLORIDE 0.9% 500ML 500 ML IV SCH ×2 (05:27→21:43)
[2016-10-31] MEDS: PIPERACILL/TAZOBAC IV 3.375 GM in DEXTROSE 5% 100ML 100 ML IV SCH ×3 (05:27→21:43)
[2016-10-31 07:15] LABS: HEMATOCRIT 35.5 % (42-52); MEAN CELL VOLUME 98.9 fL (80-100); MEAN CORPUSCULAR HEMOGLOBIN 32.9 pg (25-34); MEAN CORPUSCULAR HGB CONC 33.2 g/dl (32-36); MEAN PLATELET VOLUME 12.2 fL (7.4-10.4); PLATELET COUNT 173 K/uL (130-400); RED BLOOD COUNT 3.59 M/uL (4.7-6.1); WHITE BLOOD COUNT 4.42 K/uL (4.8-10.8)
[2016-10-31 07:32] LABS: INR 2.8 (0.9-1.1); PROTHROMBIN TIME (PATIENT) 31.2 SECONDS (9.0-12.0)
[2016-10-31 07:44] VITALS: BP 136/86; PULSE 53; TEMP 36.3; O2SAT 96
[2016-10-31 07:57] LABS: BUN/CREATININE RATIO 10.8 (10-20); CALCIUM 8.6 mg/dl (8.5-10.1); CREATININE 1.1 mg/dl (0.60-1.40); POTASSIUM 4.1 mmol/L (3.5-5.1)
[2016-10-31] MEDS ORDERED: DUTASTERIDE PO SCH (08:00)
[2016-10-31] MEDS ORDERED: TAMSULOSIN HCL PO SCH (08:00)
[2016-10-31] MEDS: SERTRALINE HCL 50 MG TAB PO SCH (08:18)
[2016-10-31] MEDS: FLUTICASONE PROPIONATE NA SPR 16 GM BTL NAE SCH (08:18)
[2016-10-31] MEDS: DONEPEZIL HCL 10 MG TAB PO SCH (08:18)
[2016-10-31] MEDS: LISINOPRIL 20 MG TAB PO SCH (08:19)
[2016-10-31] MEDS: CEROVITE ADV FORMULA TAB PO SCH (08:19)
[2016-10-31] MEDS: CETIRIZINE HCL 10 MG TAB PO SCH (08:19)
[2016-10-31] MEDS: MULTIVITAMIN TAB PO SCH (08:19)
--- NOTE | 2016-10-31 13:21 | Progress Note ---
Subjective Date of Service: Oct 31, 2016. Subjective Pt evaluation today including: conversation w/ patient, physical exam, lab review, review of studies, review of inpatient medication list Saw/examined the patient in room 256 Doing okay, pain in the LLE controlled swelling, erythema still present but improving R knee with healing laceration No fevers/chills, no nausea/vomiting Problem List Medical Problems: (1) Anemia Status: Acute (2) Contusion of knee, left Status: Acute (3) DVT (deep venous thrombosis) Status: Acute (4) Facial laceration Status: Acute (5) Head contusion Status: Acute (6) Laceration of knee, left Status: Acute (7) Swelling of left extremity Status: Acute Review of Systems Constitutional: No fever, No chills Respiratory: No cough, No sputum, No shortness of breath Cardiac: No chest pain Abdomen: No pain, No nausea, No vomiting, No diarrhea Musculoskeletal: + joint pain (LLE pain) Heme: No abnormal bleeding/bruising Medications Current Inpatient Medications Medications (Trade) Dose Ordered Sig/Joseph Route Start Time Stop Time Status Last Admin Dose Admin Vancomycin HCl 1600 mg/Sodium Chloride 532 ml @ 200 mls/hr Q16H IV 10/31/16 06:00 11/09/16 23:59 10/31/16 05:27 200 MLS/HR Piperacillin Sod/ Tazobactam Sod 3.375 gm/Dextrose 115 ml @ 28.75 mls/ hr Q8H IV 10/30/16 22:00 11/09/16 21:59 10/31/16 05:27 28.75 MLS/HR Acetaminophen (Tylenol Tab) 650 mg Q4H PRN PO 10/30/16 19:15 11/29/16 19:14 10/31/16 09:34 650 MG Al Hydrox/Mg Hydrox/Simethicone (Maalox Max Susp) 15 ml Q4H PRN PO 10/30/16 19:15 11/29/16 19:14 Magnesium Hydroxide (Milk Of Magnesia Susp) 30 ml Q6H PRN PO 10/30/16 19:15 11/29/16 19:14 Polyethylene (Miralax Powder Packet) 17 gm DAILY PRN PO 10/30/16 19:45 11/29/16 19:44 Zolpidem Tartrate (Ambien Tab) 5 mg HSZ PRN PO 10/30/16 19:15 11/29/16 19:14 Ondansetron HCl (Zofran Inj) 4 mg Q6H PRN IV 10/30/16 19:15 11/29/16 19:14 Morphine Sulfate (MoRPHine SULFATE INJ) 1 mg Q4 PRN IV 10/30/16 19:15 11/13/16 19:14 Atorvastatin Calcium (Lipitor Tab) 40 mg QPM PO 10/30/16 21:00 11/29/16 20:59 10/30/16 21:49 40 MG Donepezil HCl (Aricept Tab) 10 mg DAILY PO 10/31/16 09:00 11/30/16 08:59 10/31/16 08:18 10 MG Fluticasone Propionate (Flonase Nasal [place]) 2 sprays DAILY TASHIA 10/31/16 09:00 11/30/16 08:59 10/31/16 08:18 2 SPRAYS Lisinopril (Zestril Tab) 20 mg DAILY PO 10/31/16 09:00 11/30/16 08:59 10/31/16 08:19 20 MG Multivitamins (Multivitamin Tab) 1 tab DAILY PO 10/31/16 09:00 11/30/16 08:59 10/31/16 08:19 1 TAB Ofloxacin (Ocuflox 0.3% Oph Soln) 4 drops [place]@1800 OTR 10/31/16 18:00 11/10/16 17:59 Sertraline HCl (Zoloft Tab) 150 mg DAILY PO 10/31/16 09:00 11/30/16 08:59 10/31/16 08:18 150 MG Multivitamins/ Minerals (Multivitamin W/ Minerals Tab) 1 tab QAM PO 10/31/16 09:00 11/30/16 08:59 10/31/16 08:19 1 TAB Cetirizine HCl (zyrTEC TAB) 10 mg QAM PO 10/31/16 09:00 11/30/16 08:59 10/31/16 08:19 10 MG Piperacillin Sod/ Tazobactam Sod (Consult) 1 ea UD PRN N/A 10/30/16 21:00 11/29/16 20:59 Miscellaneous Information (Order Awaiting Action) 1 ea QS N/A 10/31/16 00:00 11/30/16 00:00 Vancomycin HCl (Consult) 1 ea UD PRN N/A 10/30/16 21:15 11/29/16 21:14 Objective Vital Signs Date Time Temp Pulse Resp B/P (MAP) Pulse Ox O2 Delivery O2 Flow Rate FiO2 10/31/16 08:00 Room Air 10/31/16 07:44 36.3 53 18 136/86 (103) 96 Room Air 10/31/16 00:00 Room Air 10/30/16 23:30 36.7 47 18 130/76 (94) 98 Room Air 10/30/16 20:00 36.8 55 20 139/68 98 Room Air 10/30/16 19:21 53 18 121/73 98 Room Air 10/30/16 17:22 52 15 114/61 99 Room Air 10/30/16 16:07 57 10/30/16 16:04 96 Room Air 10/30/16 15:30 36.7 76 20 97/58 98 Room Air Physical Exam General Appearance: no apparent distress Respiratory/Chest: chest non-tender, lungs clear, normal breath sounds, no respiratory distress, no accessory muscle use Cardiovascular: regular rate, rhythm, no murmur Extremities: + swelling, + pertinent finding (swelling and erythema of the LLE , warm and tender to touch) Laboratory Results Last 24 Hours Test 10/30/16 15:59 10/30/16 16:00 10/30/16 16:17 10/31/16 07:02 Bedside Lactic Acid Venous 1.88 mmol/L White Blood Count 5.46 K/uL 4.42 K/uL Red Blood Count 3.86 M/uL 3.59 M/uL Hemoglobin 12.8 g/dL 11.8 g/dL Hematocrit 37.8 % 35.5 % Mean Corpuscular Volume 97.9 fL 98.9 fL Mean Corpuscular Hemoglobin 33.2 pg 32.9 pg Mean Corpuscular Hemoglobin Concent 33.9 g/dl 33.2 g/dl Platelet Count 199 K/uL 173 K/uL Mean Platelet Volume 12.6 fL 12.2 fL Neutrophils (%) (Auto) 50.8 % Lymphocytes (%) (Auto) 24.5 % Monocytes (%) (Auto) 21.2 % Eosinophils (%) (Auto) 3.3 % Basophils (%) (Auto) 0.2 % Neutrophils # (Auto) 2.77 K/uL Lymphocytes # (Auto) 1.34 K/uL Monocytes # (Auto) 1.16 K/uL Eosinophils # (Auto) 0.18 K/uL Basophils # (Auto) 0.01 K/uL RDW Standard Deviation 46.6 fL 47.3 fL RDW Coefficient of Variation 13.0 % 13.1 % Immature Granulocyte % (Auto) 0.0 % Immature Granulocyte # (Auto) 0.00 K/uL Erythrocyte Sedimentation Rate 59 mm/hr Prothrombin Time 32.2 SECONDS 31.2 SECONDS Prothromb Time International Ratio 2.9 2.8 Activated Partial Thromboplast Time 43.0 SECONDS Partial Thromboplastin Ratio 1.7 Sodium Level 142 mmol/L 140 mmol/L Potassium Level 4.3 mmol/L 4.1 mmol/L Chloride Level 107 mmol/L 109 mmol/L Carbon Dioxide Level 27 mmol/L 25 mmol/L Anion Gap 8.0 mmol/L 6.0 mmol/L Blood Urea Nitrogen 14 mg/dl 12 mg/dl Creatinine 1.20 mg/dl 1.10 mg/dl Est Creatinine Clear Calc Drug Dose 75.7 ml/min 83.2 ml/min Estimated GFR () 71.1 79.0 Estimated GFR (Non- 61.3 68.1 BUN/Creatinine Ratio 11.4 10.8 Random Glucose 94 mg/dl 82 mg/dl Calcium Level 8.9 mg/dl 8.6 mg/dl Total Bilirubin 0.4 mg/dl Aspartate Amino Transf (AST/SGOT) 27 U/L Alanine Aminotransferase (ALT/SGPT) 34 U/L Alkaline Phosphatase 70 U/L Total Creatine Kinase 119 U/L Creatine Kinase MB 1.8 ng/ml Creatine Kinase MB Ratio 1.5 C-Reactive Protein 1.82 mg/dl Total Protein 7.8 gm/dl Albumin 3.5 gm/dl Globulin 4.3 gm/dl Albumin/Globulin Ratio 0.8 VF-Vts-P-Type Natriuretic Peptide 196 pg/ml Lactic Acid Level 1.4 mmol/L Assessment and Plan This is a 71 year old male with a PMH of L LE DVT s/p [place] filter and on long-term anticoagulation, HTN, HLD, BPH presents with swelling/erythema of the L LE Left Lower Extremity Cellulitis radiographs and U/S obtained seems like cellulitic changes of the L LE will continue Zosyn/Vanco for now will probably need another 1-2 days of IV antibiotics switch to PO when clinically improved Left Lower Extremity DVT patient is on Coumadin; INR = 2.8 today hold Coumadin for another day, possible interactions with abx. s/p IVC filter HTN continue home meds HLD continue home meds BPH continue home meds DVT ppx Coumadin FULL CODE
[2016-10-31 15:41] VITALS: BP 122/76; PULSE 55; TEMP 36.6; O2SAT 97
[2016-10-31 16:10] VITALS: O2SAT 97
[2016-10-31] MEDS ORDERED: OFLOXACIN 0.3% OP SOLN 5 ML BTL OTR SCH (18:00)
[2016-10-31] MEDS: ATORVASTATIN 40 MG TAB PO SCH (20:09)
[2016-10-31 23:20] VITALS: BP 134/79; PULSE 46; TEMP 36.4; O2SAT 96
[2016-11-01] MEDS: PIPERACILL/TAZOBAC IV 3.375 GM in DEXTROSE 5% 100ML 100 ML IV SCH ×3 (05:50→21:35)
[2016-11-01 07:29] LABS: MEAN CELL VOLUME 98.4 fL (80-100); MEAN CORPUSCULAR HEMOGLOBIN 32.2 pg (25-34); MEAN CORPUSCULAR HGB CONC 32.7 g/dl (32-36); MEAN PLATELET VOLUME 12.2 fL (7.4-10.4); PLATELET COUNT 205 K/uL (130-400); RED BLOOD COUNT 3.76 M/uL (4.7-6.1); WHITE BLOOD COUNT 5.42 K/uL (4.8-10.8)
[2016-11-01 07:35] VITALS: BP 134/79; PULSE 50; TEMP 37; O2SAT 93
[2016-11-01 07:37] LABS: INR 1.9 (0.9-1.1); PROTHROMBIN TIME (PATIENT) 21.4 SECONDS (9.0-12.0)
[2016-11-01] MEDS: DONEPEZIL HCL 10 MG TAB PO SCH (08:36)
[2016-11-01] MEDS: FLUTICASONE PROPIONATE NA SPR 16 GM BTL NAE SCH (08:36)
[2016-11-01] MEDS: SERTRALINE HCL 50 MG TAB PO SCH (08:37)
[2016-11-01] MEDS: LISINOPRIL 20 MG TAB PO SCH (08:37)
[2016-11-01] MEDS: CEROVITE ADV FORMULA TAB PO SCH (08:37)
[2016-11-01] MEDS: MULTIVITAMIN TAB PO SCH (08:37)
[2016-11-01] MEDS: CETIRIZINE HCL 10 MG TAB PO SCH (08:37)
--- NOTE | 2016-11-01 08:46 | Progress Note ---
Subjective Date of Service: Nov 01, 2016. Subjective Pt evaluation today including: conversation w/ patient, physical exam, lab review, review of studies, review of inpatient medication list Saw/examined the patient in room 256 He's doing well today L Lower extremity is still warm to touch; less erythematous, and less edematous No fevers/chills No nausea/vomiting Problem List Medical Problems: (1) Anemia Status: Acute (2) Contusion of knee, left Status: Acute (3) DVT (deep venous thrombosis) Status: Acute (4) Facial laceration Status: Acute (5) Head contusion Status: Acute (6) Laceration of knee, left Status: Acute (7) Swelling of left extremity Status: Acute Review of Systems Constitutional: No fever, No chills Abdomen: No pain, No nausea, No vomiting, No diarrhea Musculoskeletal: + joint pain, + muscle pain, + swelling (LLE), + calf pain Heme: No abnormal bleeding/bruising Medications Current Inpatient Medications Medications (Trade) Dose Ordered Sig/Joseph Route Start Time Stop Time Status Last Admin Dose Admin Vancomycin HCl 1600 mg/Sodium Chloride 532 ml @ 200 mls/hr Q16H IV 10/31/16 06:00 11/09/16 23:59 10/31/16 21:43 200 MLS/HR Piperacillin Sod/ Tazobactam Sod 3.375 gm/Dextrose 115 ml @ 28.75 mls/ hr Q8H IV 10/30/16 22:00 11/09/16 21:59 11/01/16 05:50 28.75 MLS/HR Acetaminophen (Tylenol Tab) 650 mg Q4H PRN PO 10/30/16 19:15 11/29/16 19:14 10/31/16 09:34 650 MG Al Hydrox/Mg Hydrox/Simethicone (Maalox Max Susp) 15 ml Q4H PRN PO 10/30/16 19:15 11/29/16 19:14 Magnesium Hydroxide (Milk Of Magnesia Susp) 30 ml Q6H PRN PO 10/30/16 19:15 11/29/16 19:14 Polyethylene (Miralax Powder Packet) 17 gm DAILY PRN PO 10/30/16 19:45 11/29/16 19:44 Zolpidem Tartrate (Ambien Tab) 5 mg HSZ PRN PO 10/30/16 19:15 11/29/16 19:14 Ondansetron HCl (Zofran Inj) 4 mg Q6H PRN IV 10/30/16 19:15 11/29/16 19:14 Morphine Sulfate (MoRPHine SULFATE INJ) 1 mg Q4 PRN IV 10/30/16 19:15 11/13/16 19:14 Atorvastatin Calcium (Lipitor Tab) 40 mg QPM PO 10/30/16 21:00 11/29/16 20:59 10/31/16 20:09 40 MG Donepezil HCl (Aricept Tab) 10 mg DAILY PO 10/31/16 09:00 11/30/16 08:59 11/01/16 08:36 10 MG Fluticasone Propionate (Flonase Nasal [place]) 2 sprays DAILY TASHIA 10/31/16 09:00 11/30/16 08:59 11/01/16 08:36 2 SPRAYS Lisinopril (Zestril Tab) 20 mg DAILY PO 10/31/16 09:00 11/30/16 08:59 11/01/16 08:37 20 MG Multivitamins (Multivitamin Tab) 1 tab DAILY PO 10/31/16 09:00 11/30/16 08:59 11/01/16 08:37 1 TAB Ofloxacin (Ocuflox 0.3% Oph Soln) 4 drops [place]@1800 OTR 10/31/16 18:00 11/10/16 17:59 10/31/16 18:35 4 DROPS Sertraline HCl (Zoloft Tab) 150 mg DAILY PO 10/31/16 09:00 11/30/16 08:59 11/01/16 08:37 150 MG Multivitamins/ Minerals (Multivitamin W/ Minerals Tab) 1 tab QAM PO 10/31/16 09:00 11/30/16 08:59 11/01/16 08:37 1 TAB Cetirizine HCl (zyrTEC TAB) 10 mg QAM PO 10/31/16 09:00 11/30/16 08:59 11/01/16 08:37 10 MG Piperacillin Sod/ Tazobactam Sod (Consult) 1 ea UD PRN N/A 10/30/16 21:00 11/29/16 20:59 Miscellaneous Information (Order Awaiting Action) 1 ea QS N/A 10/31/16 00:00 11/30/16 00:00 Vancomycin HCl (Consult) 1 ea UD PRN N/A 10/30/16 21:15 11/29/16 21:14 Warfarin Sodium (Coumadin Tab) 2.5 mg DAILY@1600 PO 11/01/16 16:00 12/01/16 15:59 Objective Vital Signs Date Time Temp Pulse Resp B/P (MAP) Pulse Ox O2 Delivery O2 Flow Rate FiO2 11/01/16 07:35 37.0 50 16 134/79 (97) 93 11/01/16 00:00 Room Air 10/31/16 23:20 36.4 46 18 134/79 (97) 96 Room Air 10/31/16 20:00 Room Air 10/31/16 16:10 97 Room Air 10/31/16 15:41 36.6 55 18 122/76 (91) 97 Room Air Physical Exam General Appearance: no apparent distress ENT: + pertinent finding (+hearing aid) Respiratory/Chest: chest non-tender, lungs clear, normal breath sounds, no respiratory distress, no accessory muscle use Cardiovascular: regular rate, rhythm, no murmur Extremities: + swelling, + pertinent finding (LLE warm to touch, less edematous , less erythematous; painful at the medial aspect of the LLE) Laboratory Results Last 24 Hours Test 11/01/16 06:51 White Blood Count 5.42 K/uL Red Blood Count 3.76 M/uL Hemoglobin 12.1 g/dL Hematocrit 37.0 % Mean Corpuscular Volume 98.4 fL Mean Corpuscular Hemoglobin 32.2 pg Mean Corpuscular Hemoglobin Concent 32.7 g/dl RDW Standard Deviation 46.7 fL RDW Coefficient of Variation 13.0 % Platelet Count 205 K/uL Mean Platelet Volume 12.2 fL Prothrombin Time 21.4 SECONDS Prothromb Time International Ratio 1.9 Assessment and Plan This is a 71 year old male with a PMH of L LE DVT s/p [place] filter and on long-term anticoagulation, HTN, HLD, BPH presents with swelling/erythema of the L LE Left Lower Extremity Cellulitis 11/01 plan is to continue IV abx for now one set of blood cultures positive for gram positive cocci continue to follow cultures switch to PO once cultures return 10/31 radiographs and U/S obtained seems like cellulitic changes of the L LE will continue Zosyn/Vanco for now will probably need another 1-2 days of IV antibiotics switch to PO when clinically improved Left Lower Extremity DVT 11/01 s/p IVC filter restart Coumadin today 10/31 patient is on Coumadin; INR = 2.8 today hold Coumadin for another day, possible interactions with abx. s/p IVC filter HTN continue home meds HLD continue home meds BPH continue home meds DVT ppx Coumadin FULL CODE
[2016-11-01] MEDS ORDERED: VANCOMYCIN TROUGH SCH (13:30)
[2016-11-01] MEDS: VANCOMYCIN INJ 1,600 MG in SODIUM CHLORIDE 0.9% 500ML 500 ML IV SCH (13:34)
--- NOTE | 2016-11-01 14:19 | Pharmacy Progress Note ---
Pharmacy Abx Dose Progress Nt Date of Service Nov 01, 2016. Pharmacy Dosing Scope The patient is currently receiving the following antimicrobial agents per Pharmacy consult: vancomycin 1600 mg IV/PO every 16 hours Zosyn 3.375 IV q8 hours Objective Height (Feet): 6 Height (Inches): 2.00 Weight (Kilograms): 108.800 Vital Signs (Past 12Hrs) Vital Signs Past 12 Hours Date Time Temp Pulse Resp B/P (MAP) Pulse Ox O2 Delivery O2 Flow Rate FiO2 11/01/16 09:27 Room Air 11/01/16 07:35 37.0 50 16 134/79 (97) 93 Lab Results (24Hrs) Laboratory Tests (24 Hours) Test 11/01/16 06:51 White Blood Count 5.42 K/uL (4.8-10.8) Micro Results Date/Time Source Procedure Growth Status 10/30/16 16:10 Blood Blood Culture - Preliminary NO GROWTH TO DATE. Resulted 10/30/16 16:00 Blood Blood Culture - Preliminary Gram Positive Cocci Resulted Risk Factors for Resistance None Assessment & Plan Assessment 71 year old male receiving vancomycin for treatment of positive blood culture / LLE cellulitis Day # 3/7 of antimicrobial therapy Plan Vancomycin IV * Trough level of 16.7 mcg/mL is therapeutic * Continue dose of vancomycin 1600 mg IV every 16 hours * Goal trough level for vancomycin : 15 to 20 mcg/mL (due to bacteremia, SSTI can be 10-15 mcg/mL as long as MRSA not involved) * Trough not re-ordered as patient may be discharged soon Piperacillin/tazobactam * Continue 3.375 g IV extended infusion every 8 hours for CrCl greater than 20 mL/min Pharmacy will continue to follow and will adjust dose/frequency as necessary. Thank you.
[2016-11-01] MEDS: WARFARIN SOD 2.5 MG TAB PO SCH (15:52)
[2016-11-01 15:54] VITALS: BP 144/77; PULSE 54; TEMP 37; O2SAT 94
[2016-11-01] MEDS: ATORVASTATIN 40 MG TAB PO SCH (20:48)
[2016-11-01 23:07] VITALS: BP 113/66; PULSE 84; TEMP 36.7; O2SAT 96
[2016-11-02] MEDS: VANCOMYCIN INJ 1,600 MG in SODIUM CHLORIDE 0.9% 500ML 500 ML IV SCH (05:52)
[2016-11-02] MEDS: PIPERACILL/TAZOBAC IV 3.375 GM in DEXTROSE 5% 100ML 100 ML IV SCH ×2 (05:52→13:53)
[2016-11-02 05:56] LABS: INR 1.6 (0.9-1.1); PROTHROMBIN TIME (PATIENT) 17.5 SECONDS (9.0-12.0)
[2016-11-02 06:30] LABS: CREATININE 1.3 mg/dl (0.60-1.40)
[2016-11-02] MEDS: LISINOPRIL 20 MG TAB PO SCH (07:29)
[2016-11-02] MEDS: DONEPEZIL HCL 10 MG TAB PO SCH (07:29)
[2016-11-02] MEDS: CETIRIZINE HCL 10 MG TAB PO SCH (07:29)
[2016-11-02] MEDS: CEROVITE ADV FORMULA TAB PO SCH (07:29)
[2016-11-02] MEDS: MULTIVITAMIN TAB PO SCH (07:30)
[2016-11-02] MEDS: SERTRALINE HCL 50 MG TAB PO SCH (07:30)
[2016-11-02] MEDS: FLUTICASONE PROPIONATE NA SPR 16 GM BTL NAE SCH (07:31)
[2016-11-02 07:40] VITALS: BP 118/67; PULSE 67; TEMP 36.8; O2SAT 100
[2016-11-02 15:00] VITALS: BP 132/85; PULSE 59; TEMP 36.6; O2SAT 95
[2016-11-02 16:00] VITALS: O2SAT 95
[2016-11-02] MEDS: WARFARIN SOD 2.5 MG TAB PO SCH (16:37)
[2016-11-02] MEDS ORDERED: NURSING VERBAL MED ORDER ONE (16:45)
--- NOTE | 2016-11-02 16:53 | Progress Note ---
Internal Med Progress Note Date of Service: Nov 02, 2016. Provider Documentation: SUBJECTIVE: feels fine, left lower ext swelling markedly improved minimum pain /discomfort /erythema no fever or chills OBJECTIVE: Vital Signs-as noted below Exam: General-no sign of distress Eyes-sclera non icteric Lungs-CTA Heart-regular s1/s2 Abdomen-soft, non tender Extremities-healed small skin laceration on left knee, minimum swelling on left leg , has persisted erythema on middle of leg and back of ankle with point tenderness normal exam of rt lower ext Neuro-AAo x3, no focal neurological deficit Lab data as noted below. ASSESSMENT & PLAN: LEFT LOWER EXT CELLULITIS : possible sources of infection -non healing left pre patellar lacerating wound / skin tear presents with diffuse soft tissue swelling involving left knee, lower leg and ankle no evidence of sepsis no fever or chills ,normal white count , vitals stable clinically much improved swelling and erythema on left lower extremity markedly improved blood culture 1/2 bottle coag negative staph will D/c IV Vancomycin /Zosyn started on on PO Doxycycline complete total 10 days course HX OF DVT on therapeutic anticoagulation with Coumadin Lower ext Doppler shows chronic DVT INR 1.6 today resumed Coumadin HTN : BP stable cont Lisinopril 20 mg daily CKD STAGE 3 : Cr at baseline avoid NSAID's , nephrotoxins CHRONIC RT EAR MASTOIDITIS : cont Ofloxacin ear drop as out pt dose CHRONIC ALLERGIC RHINITIS : on Zyrtec CHRONIC GAIT DISTURBANCE /POLYNEUROPATHY : mentions of losing balance and falls recently PT/OT eval requested FULL CODE DVT PROPHYLAXIS: Coumadin DISPOSITION ; expected to be discharged home when medically stable Medicine follow up with Dr Garcia Vital Signs: Date Time Temp Pulse Resp B/P (MAP) Pulse Ox O2 Delivery O2 Flow Rate FiO2 11/02/16 16:00 95 Room Air 11/02/16 15:00 36.6 59 19 132/85 (101) 95 Room Air 11/02/16 08:00 Room Air 11/02/16 07:40 36.8 67 20 118/67 (84) 100 Room Air 11/02/16 00:00 Room Air 11/01/16 23:07 36.7 84 16 113/66 (82) 96 Room Air Lab Results: Results Past 24 Hours Test 11/02/16 05:20 Range/Units Prothrombin Time 17.5 9.0-12.0 SECONDS Prothromb Time International Ratio 1.6 0.9-1.1 Creatinine 1.30 0.60-1.40 mg/dl Est Creatinine Clear Calc Drug Dose 70.4 ml/min Estimated GFR () 64.5 Estimated GFR (Non- 55.7
[2016-11-02] MEDS ORDERED: WARFARIN SOD 5 MG TAB PO ONE (18:00)
[2016-11-02] MEDS: DOXYCYCLINE HYCLATE 100 MG CAP PO SCH (20:46)
[2016-11-02] MEDS: ATORVASTATIN 40 MG TAB PO SCH (20:47)
[2016-11-02 23:32] VITALS: BP 144/85; PULSE 57; TEMP 36.6; O2SAT 97
[2016-11-03 07:18] VITALS: BP 137/77; PULSE 55; TEMP 36.5; O2SAT 99
[2016-11-03] MEDS: FLUTICASONE PROPIONATE NA SPR 16 GM BTL NAE SCH (07:38)
[2016-11-03 07:39] LABS: INR 1.7 (0.9-1.1); PROTHROMBIN TIME (PATIENT) 18.6 SECONDS (9.0-12.0)
[2016-11-03] MEDS: SERTRALINE HCL 50 MG TAB PO SCH (07:39)
[2016-11-03] MEDS: LISINOPRIL 20 MG TAB PO SCH (07:39)
[2016-11-03] MEDS: DOXYCYCLINE HYCLATE 100 MG CAP PO SCH ×2 (07:39→21:12)
[2016-11-03] MEDS: MULTIVITAMIN TAB PO SCH (07:39)
[2016-11-03] MEDS: CEROVITE ADV FORMULA TAB PO SCH (07:39)
[2016-11-03] MEDS: DONEPEZIL HCL 10 MG TAB PO SCH (07:39)
[2016-11-03] MEDS: CETIRIZINE HCL 10 MG TAB PO SCH (07:39)
[2016-11-03] MEDS: WARFARIN SOD 2.5 MG TAB PO SCH (15:45)
[2016-11-03 15:55] VITALS: BP 143/74; PULSE 54; TEMP 36.5; O2SAT 96
[2016-11-03 16:00] VITALS: O2SAT 98
--- NOTE | 2016-11-03 17:58 | Progress Note ---
Internal Med Progress Note Date of Service: Nov 03, 2016. Provider Documentation: SUBJECTIVE: minimum pain and discomfort in left lower ext swelling and erythema has resolved ambulating independently no fever or chills OBJECTIVE: Vital Signs-as noted below Exam: General-no sign of distress Eyes-sclera non icteric Lungs-CTA Heart-regular s1/s2 Abdomen-soft, non tender Extremities-healed small skin laceration on left knee, improved erythema on middle of leg and back of ankle ; minimum tenderness , no increased warmth noted normal exam of rt lower ext Neuro-AAo x3, no focal neurological deficit Lab data as noted below. ASSESSMENT & PLAN: LEFT LOWER EXT CELLULITIS : possible sources of infection -non healing left pre patellar lacerating wound / skin tear presents with diffuse soft tissue swelling involving left knee, lower leg and ankle no evidence of sepsis no fever or chills ,normal white count , vitals stable clinically much improved swelling and erythema on left lower extremity almost resolved blood culture 1/2 bottle coag negative staph on PO Doxycycline 100 mg BID complete total 10 days course HX OF DVT on therapeutic anticoagulation with Coumadin Lower ext Doppler shows chronic DVT cont Coumadin HTN : BP stable cont Lisinopril 20 mg daily CKD STAGE 3 : Cr at baseline avoid NSAID's , nephrotoxins CHRONIC RT EAR MASTOIDITIS : cont Ofloxacin ear drop as out pt dose CHRONIC ALLERGIC RHINITIS : on Zyrtec CHRONIC GAIT DISTURBANCE /POLYNEUROPATHY : mentions of losing balance and falls recently PT/OT eval requested FULL CODE DVT PROPHYLAXIS: Coumadin DISPOSITION ; discharged home tomorrow Medicine follow up with Dr Garcia Vital Signs: Date Time Temp Pulse Resp B/P (MAP) Pulse Ox O2 Delivery O2 Flow Rate FiO2 11/03/16 15:55 36.5 54 16 143/74 (97) 96 Room Air 11/03/16 08:33 Room Air 11/03/16 07:18 36.5 55 18 137/77 (97) 99 11/03/16 00:00 Room Air 11/02/16 23:32 36.6 57 14 144/85 (104) 97 Room Air Lab Results: Results Past 24 Hours Test 11/03/16 06:50 Range/Units Prothrombin Time 18.6 9.0-12.0 SECONDS Prothromb Time International Ratio 1.7 0.9-1.1
[2016-11-03] MEDS ORDERED: DXY100 PO (18:02)
[2016-11-03] MEDS ORDERED: WARFARIN SOD 2.5 MG TAB PO ONE (18:30)
--- NOTE | 2016-11-03 18:30 | Discharge Instructions ---
Discharge Instructions Date of Service Nov 03, 2016. Admission Reason for Admission: Cellulitis Discharge Discharge Diagnosis / Problem: LEFT LOWER EXTREMITY CELLULITIS Discharge Goals Goal(s): Decrease discomfort, Diagnostic testing Activity Recommendations Activity Limitations: resume your previous activity . Instructions / Follow-Up Instructions / Follow-Up HOSPITAL FOLLOW UP on 11/08/2016 @ 9:10 AM Leno Salas MD [facility]AG [facility]COUMADIN CLINIC FOLLOW UP 11/08/2016 @ 8:45 AM [facility] [place] [facility] [place]INR check NEW MEDICATION : Doxycycline 100 mg by mouth twice daily for 5 days -please complete antibiotic course prescription called to [facility] Diet Patient's current hospital diet: AHA Diet (Heart Healthy) Discharge Diet Recommended Diet: AHA Diet (Heart Healthy) Pending Studies Studies pending at discharge: no Medical Emergencies . Who to Call and When: Medical Emergencies: If at any time you feel your situation is an emergency, please call 911 immediately. . Non-Emergent Contact Non-Emergency issues call your: Primary Care Provider . . "Provider Documentation" section prepared by Magui Cam. . VTE Core Measure Inpt VTE Proph given/why not?: Warfarin (Coumadin)
[2016-11-03] MEDS ORDERED: TAMSULOSIN HCL 0.4 MG CAP PO SCH (21:00)
[2016-11-03] MEDS: ATORVASTATIN 40 MG TAB PO SCH (21:12)
[2016-11-03 23:35] VITALS: BP 125/74; PULSE 54; TEMP 36.5; O2SAT 96
[2016-11-04 07:05] LABS: INR 1.9 (0.9-1.1); PROTHROMBIN TIME (PATIENT) 20.7 SECONDS (9.0-12.0)
[2016-11-04 07:34] VITALS: BP 127/80; PULSE 53; TEMP 36.4; O2SAT 98
[2016-11-04] MEDS: DONEPEZIL HCL 10 MG TAB PO SCH (07:47)
[2016-11-04] MEDS: DOXYCYCLINE HYCLATE 100 MG CAP PO SCH (07:48)
[2016-11-04] MEDS: SERTRALINE HCL 50 MG TAB PO SCH (07:48)
[2016-11-04] MEDS: FLUTICASONE PROPIONATE NA SPR 16 GM BTL NAE SCH (07:48)
[2016-11-04] MEDS: CEROVITE ADV FORMULA TAB PO SCH (07:48)
[2016-11-04] MEDS: LISINOPRIL 20 MG TAB PO SCH (07:48)
[2016-11-04] MEDS: MULTIVITAMIN TAB PO SCH (07:48)
[2016-11-04] MEDS: CETIRIZINE HCL 10 MG TAB PO SCH (07:48)
[2016-11-04 08:44] VITALS: BP 127/80; PULSE 53; TEMP 36.4; O2SAT 98
[2016-11-04] MEDS ORDERED: DUTASTERIDE 0.5MG PO SCH ×2 (09:00)
--- NOTE | 2016-11-04 13:15 | Progress Note ---
Internal Med Progress Note Date of Service: Nov 04, 2016. Provider Documentation: SUBJECTIVE: lower ext pain and swelling improved no erythema stable to be discharged home today OBJECTIVE: Vital Signs-as noted below Exam: General-no sign of distress Eyes-sclera non icteric Lungs-CTA Heart-regular s1/s2 Abdomen-soft, non tender Extremities-healed small skin laceration on left knee, improved erythema on middle of leg and back of ankle ; minimum tenderness , no increased warmth noted normal exam of rt lower ext Neuro-AAo x3, no focal neurological deficit Lab data as noted below. ASSESSMENT & PLAN: LEFT LOWER EXT CELLULITIS : possible sources of infection -non healing left pre patellar lacerating wound / skin tear presents with diffuse soft tissue swelling involving left knee, lower leg and ankle no evidence of sepsis no fever or chills ,normal white count , vitals stable clinically much improved swelling and erythema on left lower extremity almost resolved blood culture 1/2 bottle coag negative staph on PO Doxycycline 100 mg BID complete total 10 days course stable to be discharged home today HX OF DVT on therapeutic anticoagulation with Coumadin Lower ext Doppler shows chronic DVT cont Coumadin cont out pt follow up at Coumadin clinic HTN : BP stable cont Lisinopril 20 mg daily CKD STAGE 3 : Cr at baseline avoid NSAID's , nephrotoxins CHRONIC RT EAR MASTOIDITIS : cont Ofloxacin ear drop as out pt dose CHRONIC ALLERGIC RHINITIS : on Zyrtec CHRONIC GAIT DISTURBANCE /POLYNEUROPATHY : mentions of losing balance and falls recently PT/OT eval requested -appreciate input at baseline functional status stable to be discharged home today FULL CODE DVT PROPHYLAXIS: Coumadin DISPOSITION ; discharged home today Medicine follow up with Dr Garcia Vital Signs: Date Time Temp Pulse Resp B/P (MAP) Pulse Ox O2 Delivery O2 Flow Rate FiO2 11/04/16 08:44 36.4 53 18 98 Room Air 11/04/16 07:34 36.4 53 18 127/80 (96) 98 Room Air 11/04/16 07:32 Room Air 11/04/16 00:00 Room Air 11/03/16 23:35 36.5 54 16 125/74 (91) 96 Room Air 11/03/16 16:00 98 Room Air 11/03/16 15:55 36.5 54 16 143/74 (97) 96 Room Air Lab Results: Results Past 24 Hours Test 11/04/16 06:33 Range/Units Prothrombin Time 20.7 9.0-12.0 SECONDS Prothromb Time International Ratio 1.9 0.9-1.1
--- NOTE | 2016-11-04 13:19 | Discharge Summary ---
Discharge Summary Date of Service Nov 04, 2016. Discharge Summary Admission Date: Oct 30, 2016 at 18:37 Discharge Date: Nov 04, 2016 Discharge Disposition: Home Principal Diagnosis: LEFT LOWER EXTREMITY CELLULITIS Procedures: LEFT TIBIA /FIBULAR XRAY : IMPRESSION: Diffuse soft tissue edema with no acute bony abnormality identified involving the left tibia or fibula or at the left ankle joint. LOWER EXTREMITY USG : IMPRESSION: There is trace and chronic appearing nonocclusive deep venous thrombosis identified in the mid to distal left superficial femoral as well as the left popliteal veins which extends into the calf. Medication Reconciliation New Medications: Doxycycline Hyclate (Doxycycline Hyclate) 100 Mg Cap 100 MG PO BID for 5 Days, #10 CAP Continued Medications: Atorvastatin (Lipitor) 40 Mg Tab 40 MG PO QPM, TAB Donepezil Hydrochloride (Aricept) 10 Mg Tab 20 MG PO DAILY Dutasteride-Tamsulosin Hcl (Alba) 1 Cap Cap 1 CAP PO DAILY for 90 Days, #90 CAP 3 Refills Fluticasone Propionate (Nasal) (Flonase Allergy Relief) 50 Mcg/Act Spr 2 SPRAYS TASHIA DAILY Lisinopril (Lisinopril) 20 Mg Tab 20 MG PO DAILY Multiple Vitamins W/ Minerals (Ocuvite Adult 50+) 1 Cap Cap 1 CAP PO DAILY Multivitamin (Multivitamin) Tab 1 TABLET PO DAILY Ofloxacin (Oph) (Ocuflox Oph Soln) 0.3 % Philip 4 DROPS OTR WK ADMINISTER EVERY WEEK ON TUESDAY Sertraline HCl (Sertraline HCl) 100 Mg Tab 150 MG PO DAILY Warfarin Sod (Jantoven) 2.5 Mg Tab 2.5 MG PO DAILY, TAB Admission Information HPI (per Admitting provider): This is a 71 yo Male with past medical hx of DVT on chronic anticoagulation with Coumadin , HTN , hyperlipidemia --who sustained a fall on 10/22/16 while tripping on a rock , striking his left against the rock , unable to stop bleeding -( on Coumadin ) pt mentions his gait has been unstable due to peripheral neuropathy , leading his to loss balance and fall was evaluated in ED -found to have 3 cm skin laceration on left inferior patella region , no bleeding noted, wound appeared to be clean , pt was able to flex and bend his knee xray of left knee showed : no Fx , prepatellar soft tissue swelling and a small anterior soft tissue laceration , Left knee laceration was sutured , antibacterial ointment and sterile dressing was placed pt was discharged home , instructed for stitch removal in 14 days at home pt continued to have pain and swelling on left knee which progressed to left lower leg and ankle region had progressive left lower ext swelling and erythema , increased tenderness today -unable to bear wt , has constant pain 7/10 -throbbing developed brisk bleeding on left knee laceration site did not had any fever or chills , no dizzy spell no further fall or trauma to the site called Dr Garcia office , pt was directed to come to ED for evaluation In the ER -pt;s left leg found to be diffusely edematous -worse since exam on marked erythema and tenderness with increased warmth no active bleeding noted on knee laceration site WBC count wnl /elevated for ESR , mild elevation of lactic acid Xray of TIB /fib , ankle and knee shows diffuse soft tissue swelling , no joint fluid noted on knee and ankle Xray Physical Exam (per Admitting): General Appearance: no apparent distress Head: normocephalic Eyes: funduscopic exam normal Neck: supple Respiratory/Chest: lungs clear, normal breath sounds, no respiratory distress Cardiovascular: regular rate, rhythm Abdomen/GI: normal bowel sounds, non tender, soft Extremities/Musculoskelatal: + inflammation (increased pain , warmth and tenderness on left leg ), + pedal edema (+ 3 left lower ext edema , normal exam of rt leg ), + swelling (left leg , ankle and foot swelling ), + pertinent finding (crusted blood on left knee laceration , no active bleeding noted ) Neurologic/Psych: no motor/sensory deficits, alert, normal mood/affect, oriented x 3 Skin: + pertinent finding (+ erythema on left leg , ankle and foot ) Hospital Course LEFT LOWER EXT CELLULITIS : possible sources of infection -non healing left pre patellar lacerating wound / skin tear presents with diffuse soft tissue swelling involving left knee, lower leg and ankle no evidence of sepsis no fever or chills ,normal white count , vitals stable clinically much improved swelling and erythema on left lower extremity almost resolved blood culture 1/2 bottle coag negative staph on PO Doxycycline 100 mg BID complete total 10 days course stable to be discharged home today HX OF DVT on therapeutic anticoagulation with Coumadin Lower ext Doppler shows chronic DVT cont Coumadin cont out pt follow up at Coumadin clinic HTN : BP stable cont Lisinopril 20 mg daily CKD STAGE 3 : Cr at baseline avoid NSAID's , nephrotoxins CHRONIC RT EAR MASTOIDITIS : cont Ofloxacin ear drop as out pt dose CHRONIC ALLERGIC RHINITIS : on Zyrtec CHRONIC GAIT DISTURBANCE /POLYNEUROPATHY : mentions of losing balance and falls recently PT/OT eval requested -appreciate input at baseline functional status stable to be discharged home today FULL CODE DVT PROPHYLAXIS: Coumadin DISPOSITION ; discharged home today Medicine follow up with Dr Garcia Total time spent on discharge = 35 mins This includes examination of the patient, discharge planning, medication reconciliation, and communication with other providers. Discharge Instructions Discharge Instructions Date of Service Nov 03, 2016. Admission Reason for Admission: Cellulitis Discharge Discharge Diagnosis / Problem: LEFT LOWER EXTREMITY CELLULITIS Discharge Goals Goal(s): Decrease discomfort, Diagnostic testing Activity Recommendations Activity Limitations: resume your previous activity . Instructions / Follow-Up Instructions / Follow-Up HOSPITAL FOLLOW UP on 11/08/2016 @ 9:10 AM Leno Salas MD [facility] COAG /COUMADIN CLINIC FOLLOW UP 11/08/2016 @ 8:45 AM [facility] NEW MEDICATION : Doxycycline 100 mg by mouth twice daily for 5 days -please complete antibiotic course prescription called to [facility] Diet Patient's current hospital diet: AHA Diet (Heart Healthy) Discharge Diet Recommended Diet: AHA Diet (Heart Healthy) Pending Studies Studies pending at discharge: no Medical Emergencies . Who to Call and When: Medical Emergencies: If at any time you feel your situation is an emergency, please call 911 immediately. . Non-Emergent Contact Non-Emergency issues call your: Primary Care Provider . . "Provider Documentation" section prepared by Magui Cam. . VTE Core Measure Inpt VTE Proph given/why not?: Warfarin (Coumadin) Additional Copies To Leno Salas M.D.
[2017-04-04] MEDS ORDERED: OXYC-57 PO (11:43)
== END 2016-11-04 10:25 | disposition home or self-care (01) | DRG 603 ==
LOC: C.EDB 15:27 → C.MS2W 18:37 → ENRESERV 19:27
PROVIDERS: ADMIT Hospitalist; ATTEND Hospitalist
DX: L03.116 Cellulitis of left lower limb (principal); I82.512 Chronic embolism and thrombosis of left femoral vein; I82.532 Chronic embolism and thrombosis of left popliteal vein; I12.9 Hypertensive chronic kidney disease with stage 1 through stage 4 chronic kidney disease, or unspecified chronic kidney disease; N18.3 Chronic kidney disease, stage 3 (moderate); E78.5 Hyperlipidemia, unspecified; N40.0 Benign prostatic hyperplasia without lower urinary tract symptoms; G62.9 Polyneuropathy, unspecified; H70.11 Chronic mastoiditis, right ear; J30.9 Allergic rhinitis, unspecified; R26.9 Unspecified abnormalities of gait and mobility; Z79.01 Long term (current) use of anticoagulants; Z90.49 Acquired absence of other specified parts of digestive tract; Z80.9 Family history of malignant neoplasm, unspecified; Z82.49 Family history of ischemic heart disease and other diseases of the circulatory system; Z79.899 Other long term (current) drug therapy

== ENCOUNTER 2017-01-18 09:39 | Emergency (ER) | payer OTHER ==
[~2017-01-18] VITALS: Ht 188 cm; Wt 109.1 kg
[~2017-01-18 09:39] MED LIST changes: -ACET-1256 PO; -DUTA0.5C PO; -LISI-461 PO; -NMN10 PO; -OFLO0.3D4 OT; -SERT50TA PO; -TAMS0.4C38 PO
[2017-01-18 09:43] VITALS: TEMP 36.6; Ht 188 cm; Wt 109.1 kg
[2017-01-18] MEDS ORDERED: SODIUM CHLORIDE 0.9% 1000ML 1,000 ML IV STA (10:23)
[2017-01-18] MEDS ORDERED: DUTA0.5C PO (10:36)
[2017-01-18] MEDS ORDERED: NMN10 PO (10:40)
[2017-01-18] MEDS ORDERED: TAMS0.4C38 PO (10:40)
[2017-01-18] MEDS ORDERED: ACET-1256 PO (10:40)
[2017-01-18] MEDS ORDERED: SERT50TA PO (10:40)
[2017-01-18] MEDS ORDERED: LISI-461 PO (10:40)
--- NOTE | 2017-01-18 10:40 | EMERGENCY ROOM VISIT NOTE ---
History Report prepared by Fernando: Veronique Conteh Under the Supervision of: Dr. Shonna Ball M.D. First contact with patient: 10:11 Chief Complaint: FALL Stated Complaint: FALL, FACIAL BRUISING History of Present Illness The patient is a 72 year old male who presents to the Emergency Room with complaints of a sudden fall that occurred on Tuesday. He currently rates his discomfort as an 8/10 in severity. 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 The patient reports that on Tuesday he was carrying a board and lost his footing down steps. He states that he fell injuring his right knee and additionally notes facial trauma. 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 He states that he had been experiencing hematuria. The patient denies being on any current antibiotics. The patient notes that he has been on Coumadin since April 2016. He states that he has a history of a total right knee replacement. The patient reports pain in his right knee today that has been worsening. He denies any headache, dizziness, or vomiting. The patient states that he has taken Tylenol for his pain. Source of History: patient, spouse/significant other () Onset: Tuesday Position: other (global) Symptom Intensity: 8/10 Quality: other (fall) Timing: other (sudden) Associated Symptoms: No headache, No vomiting Note: Associated Symptoms: right knee pain Review of Systems See HPI for pertinent positives & negatives. A total of 10 systems reviewed and were otherwise negative. Past Medical & Surgical Medical Problems: (1) Benign hypertension (2) Blood Clot (3) Cellulitis (4) Cholecystectomy (5) left leg blood clot Family History Cancer Heart disease Social History Smoking Status: Never Smoker Alcohol Use: occasionally Marital Status: Housing Status: lives with family Occupation Status: employed Current/Historical Medications Scheduled Atorvastatin (Lipitor), 40 MG PO QPM Dutasteride (Avodart), 0.5 MG PO DAILY Fluticasone Propionate (Nasal) (Flonase Allergy Relief), 2 SPRAYS TASHIA DAILY Lisinopril (Zestril), 10 MG PO DAILY Memantine (Namenda), 10 MG PO BID Multiple Vitamins W/ Minerals (Ocuvite Adult 50+), 1 CAP PO DAILY Multivitamin (Multivitamin), 1 TABLET PO DAILY Ofloxacin (Otic) (Floxin Otic), 5 DROPS OT BID Sertraline (Zoloft), 50 MG PO DAILY Tamsulosin Hcl (Flomax), 0.4 MG PO QPM Warfarin Sod (Jantoven), 2.5 MG PO DAILY Scheduled PRN Acetaminophen (Tylenol), 1,000 MG PO UD PRN for Pain Allergies Coded Allergies: Adhesives (Verified Allergy, Intermediate, RED SKIN, 01/18/17) Latex (Unverified Allergy, Unknown, RASH, 01/18/17) Physical Exam Vital Signs Date Time Temp Pulse Resp B/P (MAP) Pulse Ox O2 Delivery O2 Flow Rate FiO2 01/18/17 13:36 60 14 98 01/18/17 13:33 132/74 01/18/17 13:31 198/124 01/18/17 13:06 60 14 01/18/17 13:01 168/119 01/18/17 12:36 56 15 01/18/17 12:31 188/120 01/18/17 12:18 181/78 01/18/17 11:01 76 18 126/91 98 Room Air 01/18/17 10:56 66 01/18/17 10:50 124/75 01/18/17 09:43 36.6 71 18 127/74 98 Room Air Pain Rating (0-10): 8.0 Physical Exam Vital signs reviewed. General: Well-appearing male, in no significant distress. HEENT: Large amount of ecchymosis to the forehead and periorbital region bilaterally. No scleral icterus, PERRLA, neck supple Cardiovascular: Regular rate and rhythm, no extra sounds. Pulmonary: Clear to auscultation bilaterally, normal work of breathing. Abdomen: Soft, nontender, nondistended, positive bowel sounds. Musculoskeletal: Ecchymosis noted to the lateral right knee distally with tenderness along proximal lateral calf. No significant edema, no deformity, full range of motion Neurologic: Patient awake alert and oriented x 3, some difficulty answering questions, but states at baseline. Full strength in all 4 extremities. Cranial nerves 2 through 12 grossly intact. Skin: Warm, dry, bruising as noted above. Medical Decision & Procedures ER Provider Diagnostic Interpretation: Radiology results as stated below per my review and radiologist interpretation: RIGHT KNEE 1 OR 2 VIEWS ROUTINE CLINICAL HISTORY: R knee pain, s/p TKA, coumadin Right pain COMPARISON: None. DISCUSSION: Total right knee replacement. Good contact between prosthetic and underlying bone. No acute bony abnormality. No significant joint effusion. There is no evidence for soft tissue swelling. IMPRESSION: No acute process status post total right knee arthroplasty The above report was generated using voice recognition software. It may contain grammatical, syntax or spelling errors. Electronically signed by: Stevie Alves M.D. 01/18/2017 11:56 AM Dictated Date/Time: 01/18/2017 11:55 AM HEAD WITHOUT CONTRAST (CT) CT DOSE: 614.27 mGy.cm HISTORY: Mental status change CHI, anticoagulants TECHNIQUE: Multiaxial CT images of the head were performed without the use of intravenous contrast. A dose lowering technique was utilized adhering to the principles of ALARA. Comparison: 10/22/2016 Findings: Chronic sclerosis right mastoid air cells. This is unchanged from the prior exam. Mild cerebral atrophy. Mild chronic small vessel change of aging. No acute intracranial abnormality. No midline shift. Impression: Chronic and age-related change. No acute process. The above report was generated using voice recognition software. It may contain grammatical, syntax or spelling errors. Electronically signed by: Stevie Alves M.D. 01/18/2017 11:22 AM Dictated Date/Time: 01/18/2017 11:18 AM Laboratory Results 01/18/17 11:00 Red Blood Count 3.69, Mean Corpuscular Volume 98.9, Mean Corpuscular Hemoglobin 33.1, Mean Corpuscular Hemoglobin Concent 33.4, Mean Platelet Volume 11.5, Neutrophils (%) (Auto) 58.6, Lymphocytes (%) (Auto) 17.9, Monocytes (%) (Auto) 20.5, Eosinophils (%) (Auto) 2.7, Basophils (%) (Auto) 0.0, Neutrophils # (Auto ) 3.64, Lymphocytes # (Auto) 1.11, Monocytes # (Auto) 1.27, Eosinophils # (Auto ) 0.17, Basophils # (Auto) 0.00 01/18/17 11:00 Test 01/18/17 11:00 01/18/17 12:15 White Blood Count 6.21 K/uL (4.8-10.8) Red Blood Count 3.69 M/uL (4.7-6.1) Hemoglobin 12.2 g/dL (14.0-18.0) Hematocrit 36.5 % (42-52) Mean Corpuscular Volume 98.9 fL (80-100) Mean Corpuscular Hemoglobin 33.1 pg (25-34) Mean Corpuscular Hemoglobin Concent 33.4 g/dl (32-36) Platelet Count 164 K/uL (130-400) Mean Platelet Volume 11.5 fL (7.4-10.4) Neutrophils (%) (Auto) 58.6 % Lymphocytes (%) (Auto) 17.9 % Monocytes (%) (Auto) 20.5 % Eosinophils (%) (Auto) 2.7 % Basophils (%) (Auto) 0.0 % Neutrophils # (Auto) 3.64 K/uL (1.4-6.5) Lymphocytes # (Auto) 1.11 K/uL (1.2-3.4) Monocytes # (Auto) 1.27 K/uL (0.11-0.59) Eosinophils # (Auto) 0.17 K/uL (0-0.5) Basophils # (Auto) 0.00 K/uL (0-0.2) RDW Standard Deviation 49.3 fL (36.4-46.3) RDW Coefficient of Variation 13.7 % (11.5-14.5) Immature Granulocyte % (Auto) 0.3 % Immature Granulocyte # (Auto) 0.02 K/uL (0.00-0.02) Prothrombin Time 26.6 SECONDS (9.0-12.0) Prothromb Time International Ratio 2.4 (0.9-1.1) Activated Partial Thromboplast Time 41.8 SECONDS (21.0-31.0) Partial Thromboplastin Ratio 1.6 Anion Gap 4.0 mmol/L (3-11) Est Creatinine Clear Calc Drug Dose 69.5 ml/min Estimated GFR () 64.1 Estimated GFR (Non- 55.3 BUN/Creatinine Ratio 17.6 (10-20) Calcium Level 9.3 mg/dl (8.5-10.1) Total Bilirubin 0.9 mg/dl (0.2-1) Direct Bilirubin 0.2 mg/dl (0-0.2) Aspartate Amino Transf (AST/SGOT) 39 U/L (15-37) Alanine Aminotransferase (ALT/SGPT) 48 U/L (12-78) Alkaline Phosphatase 132 U/L (45-117) Total Protein 7.7 gm/dl (6.4-8.2) Albumin 3.5 gm/dl (3.4-5.0) Urine Color YELLOW Urine Appearance CLEAR (CLEAR) Urine pH 6.5 (4.5-7.5) Urine Specific [place] 1.021 (1.000-1.030) Urine Protein NEG (NEG) Urine Glucose (UA) NEG (NEG) Urine Ketones NEG (NEG) Urine Occult Blood 1+ (NEG) Urine Nitrite NEG (NEG) Urine Bilirubin NEG (NEG) Urine Urobilinogen NEG (NEG) Urine Leukocyte Esterase NEG (NEG) Urine WBC (Auto) 1-5 /hpf (0-5) Urine RBC (Auto) 10-30 /hpf (0-4) Urine Hyaline Casts (Auto) 1-5 /lpf (0-5) Urine Epithelial Cells (Auto) 10-20 /lpf (0-5) Urine Bacteria (Auto) NEG (NEG) Laboratory results per my review. Medications Administered Medications (Trade) Dose Ordered Sig/Joseph Route Start Time Stop Time Status Last Admin Dose Admin Sodium Chloride 1,000 ml @ 125 mls/hr Q8H STAT IV 01/18/17 10:23 01/18/17 14:23 DC 01/18/17 11:06 125 MLS/HR ECG Indication: other (trauma) Rate (beats per minute): 64 Rhythm: normal sinus Findings: LAFB, RBBB, no acute ischemic change, no ectopy ED Course 1022: Past medical records reviewed. The patient was evaluated in room C3. A complete history and physical examination was performed. 1023: Ordered Sodium Chloride 1000 ml @ 125 msl/hr IV. 1330: I reevaluated the patient and he is doing well. I discussed the exam findings with him and I discussed the treatment plan. He verbalized complete understanding and agreement. He is ready to go home shortly. Medical Decision DDx: Intracranial injury, cervical spine injury, intrathoracic injury, intra- abdominal injury, musculoskeletal injury. This pt was evaluated and appeared to be in no distress. IV access was obtained and lab work was drawn. CT scan of the head was performed and reveals no ICH. Lab work reveals a therapeutic INR at 2.4. Pt has not had coumadin in several days, as instructed, making the concern higher for a markedly elevated INR at the time of the fall. XR of right knee is negative for fx. UA is + for mmicroscopic blood, but not grossly bloody. Pt will be d/c to care of his . They will f/u with his PCP this week and return to the ED for worsening of symptoms or any medical concerns. Head Trauma GCS Score: 15 Medication Reconcilliation Current Medication List: was personally reviewed by me Blood Pressure Screening Patient's blood pressure: Normal blood pressure Blood pressure disposition: Did not require urgent referral Impression Primary Impression: Traumatic ecchymosis of face Additional Impressions: Forehead contusion Right knee sprain Scribe Attestation The scribe's documentation has been prepared under my direction and personally reviewed by me in its entirety. I confirm that the note above accurately reflects all work, treatment, procedures, and medical decision making performed by me. Departure Information Dispostion Home / Self-Care Referrals Leno Salas M.D. (PCP) Forms HOME CARE DOCUMENTATION FORM, IMPORTANT VISIT INFORMATION Patient Instructions My [facility] Additional Instructions Diagnosis: Traumatic ecchymosis of the face, forehead contusion, right knee sprain. Keep the head elevated at night when resting. Drink plenty of clear fluids. Follow-up with your physician this week for reevaluation. Return to the ER for worsening of symptoms or any medical concerns. Problem Qualifiers
[2017-01-18] MEDS ORDERED: OFLO0.3D4 OT (10:42)
[2017-01-18 11:20] LABS: COMPLETE YES; EOS % 2.7 %; HEMATOCRIT 36.5 % (42-52); IG% 0.3 %; LYMPH % 17.9 %; LYMPH ABS # 1.11 K/uL (1.2-3.4); MEAN CELL VOLUME 98.9 fL (80-100); MEAN CORPUSCULAR HEMOGLOBIN 33.1 pg (25-34); MEAN CORPUSCULAR HGB CONC 33.4 g/dl (32-36); MEAN PLATELET VOLUME 11.5 fL (7.4-10.4); MONO % 20.5 %; NEUT % 58.6 %; PLATELET COUNT 164 K/uL (130-400); RED BLOOD COUNT 3.69 M/uL (4.7-6.1); WHITE BLOOD COUNT 6.21 K/uL (4.8-10.8)
--- NOTE | 2017-01-18 11:23 | DIAGNOSTIC IMAGING REPORT ---
HEAD WITHOUT CONTRAST (CT) CT DOSE: 614.27 mGy.cm HISTORY: Mental status change CHI, anticoagulants TECHNIQUE: Multiaxial CT images of the head were performed without the use of intravenous contrast. A dose lowering technique was utilized adhering to the principles of ALARA. Comparison: 10/22/2016 Findings: Chronic sclerosis right mastoid air cells. This is unchanged from the prior exam. Mild cerebral atrophy. Mild chronic small vessel change of aging. No acute intracranial abnormality. No midline shift. Impression: Chronic and age-related change. No acute process. The above report was generated using voice recognition software. It may contain grammatical, syntax or spelling errors. Electronically signed by: Stevie Alves M.D. 01/18/2017 11:22 AM Dictated Date/Time: 01/18/2017 11:18 AM
[2017-01-18 11:32] LABS: INR 2.4 (0.9-1.1); PARTIAL THROMBOPLASTIN RATIO 1.6; PROTHROMBIN TIME (PATIENT) 26.6 SECONDS (9.0-12.0)
[2017-01-18 11:33] LABS: BUN/CREATININE RATIO 17.6 (10-20); CALCIUM 9.3 mg/dl (8.5-10.1); CREATININE 1.3 mg/dl (0.60-1.40); POTASSIUM 4.4 mmol/L (3.5-5.1)
--- NOTE | 2017-01-18 11:57 | DIAGNOSTIC IMAGING REPORT ---
RIGHT KNEE 1 OR 2 VIEWS ROUTINE CLINICAL HISTORY: R knee pain, s/p TKA, coumadin Right pain COMPARISON: None. DISCUSSION: Total right knee replacement. Good contact between prosthetic and underlying bone. No acute bony abnormality. No significant joint effusion. There is no evidence for soft tissue swelling. IMPRESSION: No acute process status post total right knee arthroplasty The above report was generated using voice recognition software. It may contain grammatical, syntax or spelling errors. Electronically signed by: Stevie Alves M.D. 01/18/2017 11:56 AM Dictated Date/Time: 01/18/2017 11:55 AM
[2017-01-18 12:42] LABS: URINE APPEARANCE CLEAR (CLEAR); URINE BILIRUBIN NEG (NEG); URINE COLOR YELLOW; URINE NITRITE NEG (NEG); URINE PH 6.5 (4.5-7.5); URINE SPECIFIC GRAVITY 1.021 (1.000-1.030); UROBILINOGEN NEG (NEG); ZZUR CULT IF INDIC CLEAN CATCH NO
[2017-01-18 12:51] LABS: MANUAL MICROSCOPIC REQUIRED? NO; REVIEW REQ? NO
[2017-01-18 13:33] VITALS: BP 132/74
[2017-01-18 13:36] VITALS: PULSE 60; O2SAT 98
== END 2017-01-18 13:57 | disposition home or self-care (01) ==
LOC: C.EDB 09:40 → C.EDC 13:57
DX: S00.83XA Contusion of other part of head, initial encounter (principal); S83.91XA Sprain of unspecified site of right knee, initial encounter; W10.9XXA Fall (on) (from) unspecified stairs and steps, initial encounter; Y93.89 Activity, other specified; Y99.8 Other external cause status; I10 Essential (primary) hypertension; Z86.718 Personal history of other venous thrombosis and embolism; Z96.651 Presence of right artificial knee joint; Z90.49 Acquired absence of other specified parts of digestive tract; Z79.01 Long term (current) use of anticoagulants; Z79.899 Other long term (current) drug therapy; N40.0 Benign prostatic hyperplasia without lower urinary tract symptoms; R31.0 Gross hematuria

== ENCOUNTER → 2017-01-18 | Outpatient (CLI) | payer OTHER ==
[~2017-01-18] MED LIST changes: +ACET-1256 PO; +DUTA0.5C PO; +DUTACAP PO; +DXY100 PO; +LISI-461 PO; +NMN10 PO; +OFLO0.3D4 OT; +SERT50TA PO; +TAMS0.4C38 PO
[2017-01-18 10:37] LABS: BLOOD UREA NITROGEN 24 mg/dl (7-18); BUN/CREATININE RATIO 18.6 (10-20)
[2017-01-18 10:41] LABS: PROSTATE SPECIFIC ANTIGEN 0.424 ng/ml (0.000-4.000)
== END | disposition home or self-care (01) ==
LOC: C.LAB 09:24
PROVIDERS: ATTEND Urology
DX: N40.0 Benign prostatic hyperplasia without lower urinary tract symptoms (principal); R31.0 Gross hematuria

== ENCOUNTER → 2017-01-24 | Outpatient (CLI) | payer OTHER ==
[~2017-01-24] MED LIST changes: +ACET-1256 PO; +DUTA0.5C PO; +LISI-461 PO; +NMN10 PO; +OFLO0.3D4 OT; +OPTIRAY 320 IV PRN; +SERT50TA PO; +TAMS0.4C38 PO
--- NOTE | 2017-01-25 08:22 | DIAGNOSTIC IMAGING REPORT ---
CT OF THE ABDOMEN AND PELVIS WITH AND WITHOUT CONTRAST HEMATURIA PROTOCOL CLINICAL HISTORY: Gross hematuria. COMPARISON STUDY: CT of the abdomen and pelvis December 07, 2013. TECHNIQUE: Unenhanced and split bolus phase imaging of the abdomen and pelvis was performed. Injection of 94 cc Optiray 320 IV was uneventful. A dose lowering technique was utilized adhering to the principles of ALARA. CT DOSE: 1972.98 mGycm FINDINGS: No renal, ureteral or bladder calculi are present. There are no solid renal lesions. No hydronephrosis or hydroureter is present. Several water attenuation bilateral renal lesions reflect cysts. The largest is a 2.2 cm left renal lesion. The bladder suboptimally assessed given underdistention and incomplete opacification but no bladder mass identified. No enlarged abdominal or pelvic lymph nodes are present. The gallbladder is surgically absent. There is no biliary ductal dilatation. The pancreas and adrenal glands are unremarkable. There is no evidence for a bowel obstruction. The appendix is normal. 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 Struts extend beyond the haywood of the iliac vein. This is unchanged since exam of December 07, 2013. No suspicious osseous lesions are present. IMPRESSION: 1. No CT findings to explain hematuria. 2. Suboptimal evaluation of the bladder given underdistention and incomplete opacification but no bladder mass identified. No upper tract urothelial lesions. No hydronephrosis. Electronically signed by: Jed Kwon M.D. 01/25/2017 8:21 AM Dictated Date/Time: 01/24/2017 3:06 PM
== END | disposition home or self-care (01) ==
LOC: C.CTS 14:18
PROVIDERS: ATTEND Nurse Practitioner Family
DX: R31.0 Gross hematuria (principal)

== ENCOUNTER → 2017-02-24 | Outpatient (CLI) | payer OTHER ==
[~2017-02-24] MED LIST changes: -DONE10TA12 PO; -DUTACAP PO; -DXY100 PO; -LSN20 PO; -OFLO0.3S OTR; -OPTIRAY 320 IV PRN; -SERT1TAB92 PO
== END | disposition home or self-care (01) ==
LOC: C.LABSPEC 16:58 → C.PATHSPEC 17:04
PROVIDERS: ATTEND Nurse Practitioner Family
DX: R31.0 Gross hematuria (principal)

== ENCOUNTER → 2017-04-04 | Day surgery (SDC) | payer OTHER ==
[2017-03-22 11:32] VITALS: BMI 32.0
--- NOTE | 2017-03-22 12:27 | PAT Medication Instructions ---
Service Date Mar 22, 2017. Current Home Medication List Atorvastatin (Lipitor), 40 MG PO QAM Dutasteride (Avodart), 0.5 MG PO QPM Fluticasone Propionate (Nasal) (Flonase Allergy Relief), 2 SPRAYS TASHIA QAM Lisinopril (Zestril), 10 MG PO HS Memantine (Namenda), 10 MG PO HS Multiple Vitamins W/ Minerals (Ocuvite Adult 50+), 1 CAP PO QAM Multivitamin (Multivitamin), 1 TABLET PO QAM Sertraline (Zoloft), 50 MG PO HS Tamsulosin Hcl (Flomax), 0.4 MG PO QPM Warfarin Sod (Jantoven), 2.5 MG PO DAILY Medication Instructions For Your Scheduled Surgery - Per Coumadin Clinic instructions: Warfarin Sod (Jantoven), 2.5 MG PO DAILY - Hold the following medications 24 hours prior to surgery: Lisinopril (Zestril), 10 MG PO HS - Hold the following medications the morning of surgery: Multiple Vitamins W/ Minerals (Ocuvite Adult 50+), 1 CAP PO QAM Multivitamin (Multivitamin), 1 TABLET PO QAM - Take the following medications the morning of surgery with a sip of water OTHERWISE NOTHING TO EAT OR DRINK AFTER MIDNIGHT: Atorvastatin (Lipitor), 40 MG PO QAM Fluticasone Propionate (Nasal) (Flonase Allergy Relief), 2 SPRAYS TASHIA QAM - Take the following medications as scheduled the night before surgery: Tamsulosin Hcl (Flomax), 0.4 MG PO QPM Memantine (Namenda), 10 MG PO HS Dutasteride (Avodart), 0.5 MG PO QPM Sertraline (Zoloft), 50 MG PO HS If you have any questions please call us at [phone] or [phone] or [phone]
[2017-03-22 13:13] LABS: URINE APPEARANCE CLEAR (CLEAR); URINE BILIRUBIN NEG (NEG); URINE COLOR YELLOW; URINE NITRITE NEG (NEG); URINE SPECIFIC GRAVITY 1.026 (1.000-1.030); UROBILINOGEN NEG (NEG)
[2017-03-22 13:19] LABS: MANUAL MICROSCOPIC REQUIRED? NO; REVIEW REQ? NO
[2017-03-22 13:25] LABS: BASO % 0.1 %; BASO ABS # 0.01 K/uL (0-0.2); COMPLETE YES; EOS % 4.5 %; HEMATOCRIT 42.4 % (42-52); IG% 0.1 %; LYMPH % 28.4 %; MEAN CELL VOLUME 100.2 fL (80-100); MEAN CORPUSCULAR HEMOGLOBIN 32.9 pg (25-34); MEAN CORPUSCULAR HGB CONC 32.8 g/dl (32-36); MEAN PLATELET VOLUME 12.2 fL (7.4-10.4); MONO % 21.9 %; PLATELET COUNT 127 K/uL (130-400); PLT ESTIMATE DECREASED; RED BLOOD COUNT 4.23 M/uL (4.7-6.1)
[2017-03-22 13:56] LABS: BUN/CREATININE RATIO 17.4 (10-20); CALCIUM 9.4 mg/dl (8.5-10.1); CREATININE 1.4 mg/dl (0.60-1.40); POTASSIUM 4.7 mmol/L (3.5-5.1)
[~2017-04-04] VITALS: Ht 188 cm; Wt 112.3 kg
[~2017-04-04] MED LIST changes: -ACET-1256 PO; +ATROPINE SULFATE 0.1 MG/ML 5ML SYR IV PRN; +CIPROFLOXACIN / D5W 400 MG IV SCH; +CIPROFLOXACIN 400MG / D5W IV SCH; +DEXAMETHASONE SOD INJ 4 MG/ML VIAL ONE; +EpHEDrine SULFATE INJ 50 MG/ML AMP IV PRN; +EpHEDrine SULFATE INJ 50 MG/ML AMP ONE; +FENTANYL CITRATE INJ 50 MCG/1 ML 2 ML VIAL IV PRN; +FENTANYL CITRATE INJ 50 MCG/1 ML 2 ML VIAL ONE; +HYDROmorphone INJ 1 MG/ML SYR IV PRN; +LACTATED RINGER'S 1000ML 1,000 ML IV SCH; +LIDOCAINE HCL 2% 2 ML VIAL (20MG/ML) ONE; +MIDAZOLAM HCL 1 MG/ML 2ML VIAL ONE; -OFLO0.3D4 OT; +ONDANSETRON INJ 2 MG/ML 2 ML VIAL IV PRN; +ONDANSETRON INJ 2 MG/ML 2 ML VIAL ONE; +OXYC-57 PO; +OXYCODONE/ACETAMINOPHEN 5-325 TAB PO PRN; +PHENYLEPHRINE 100MCG/ML 5ML SYR ONE; +PROPOFOL IV EMULSION 10 MG/ML 20 ML VIAL IV ONE; +SODIUM CHLORIDE 0.9% INJ 10 ML VIAL ONE
[2017-04-04 09:32] VITALS: BP 141/81; PULSE 62; TEMP 36.5; O2SAT 99; Ht 188 cm; Wt 112.3 kg
[2017-04-04 10:27] LABS: PROTHROMBIN TIME (PATIENT) 10.7 SECONDS (9.0-12.0)
--- NOTE | 2017-04-04 10:51 | History & Physical Bridge Note ---
H&P Re-Evaluation Bridge Note: I have examined the patient, reviewed the History & Physical and in the interval since the performance of the History & Physical I have noted the following changes of clinical significance: No changes noted
--- NOTE | 2017-04-04 11:44 | Discharge Instructions ---
Discharge Instructions Date of Service Apr 04, 2017. 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 Post Anesthesia Instructions: If you have had General Anesthesia or IV Sedation: * Do not drive today. * Resume driving when surgeon permits. * Do not make important decisions or sign legal documents today. * Call surgeon for: 1. Temperature elevations greater than 101 degrees F. 2. Uncontrollable pain. 3. Excessive bleeding. 4. Persistent nausea and vomiting. 5. Medication intolerance (nausea, vomiting or rash). * For nausea and vomiting use only clear liquids such as: tea, soda, bouillon until nausea subsides, then gradually increase diet as tolerated. * If you have any concerns or questions, call your surgeon's office. If physician is unavailable and it is an emergency, call 911 or go to the nearest emergency room. . Diet Recommendations Recommended Home Diet: resume previous diet Procedures Procedures Performed: Cystoscopy, Bladder Biopsy Pending Studies Studies pending at discharge: no Medical Emergencies . Who to Call and When: Medical Emergencies: If at any time you feel your situation is an emergency, please call 911 immediately. . Non-Emergent Contact Non-Emergency issues call your: Urologist Call Non-Emergent contact if: temperature is above 101.5, your pain is not controlled . . "Provider Documentation" section prepared by Gume Escamilla. . [place] Drug Monitoring Program Search Results: patient reviewed within database
--- NOTE | 2017-04-04 11:55 | [facility] Operative Report ---
Operative Report Operative Date Apr 04, 2017. Pre-Operative Diagnosis Neoplasm of Bladder Post-Operative Diagnosis Neoplasm of Bladder Procedure(s) Performed Cystoscopy, Bladder Biopsy Surgeon Andi Folder Hand Surgeon(s) none Estimated Blood Loss 0 Findings Cystoscopic exam showed a normal anterior urethra. Prostatic fossa was mildly obstructing primarily from an elevated median lobe. Bladder showed several round nodules primarily located around the trigone area. Both ureteral orifices were effluxing clear urine Specimens A: Bladder Biopsy Drains none Anesthesia Gen. Complication(s) None Disposition Recovery Room / PACU Indications Patient is a 9-year-old white male who on evaluation for gross hematuria was found to have several abnormal-appearing nodules in the bladder he's being brought in for biopsy. Description of Procedure After the induction of an adequate general anesthetic and appropriate timeout patient was placed in the dorsal lithotomy position. Lower abdomen and genitalia were prepped with Hibiclens and draped in a sterile fashion. Using a 22 Frisian cystoscope routine cystoscopic exam was performed with the above- noted findings with the 30 and 70 lenses. Next using cold cup biopsy forceps 2 of the nodules were biopsied and handed off the table as specimens. The biopsy sites as well has several other smaller nodules were fulgurated with the Bugbee electrode. After making sure there was no bleeding bladder was drained cystoscope and sheath were removed. All needle sponge and instrument counts were correct at the end of the case. Patient tolerated the procedure well and was taken to the recovery room in stable condition. I attest to the content of the Intraoperative Record and any orders documented therein. Any exceptions are noted below.
--- NOTE | 2017-04-04 12:42 | Anesthesiology Progress Note ---
Anesthesia Post Op Note Date & Time Apr 04, 2017 at 12:41 Vital Signs Pain Intensity: 0 Vital Signs Past 12 Hours Date Time Temp Pulse Resp B/P (MAP) Pulse Ox O2 Delivery O2 Flow Rate FiO2 04/04/17 12:35 70 15 115/70 95 Room Air 04/04/17 12:30 68 15 112/70 95 Room Air 04/04/17 12:20 36.9 70 14 116/68 95 Room Air 04/04/17 12:10 73 12 110/71 93 Room Air 04/04/17 12:00 78 12 95/73 95 Mask 10 04/04/17 11:50 82 18 115/68 98 Mask 10 04/04/17 11:41 36.8 83 16 92/54 96 Mask 10 04/04/17 09:32 36.5 62 18 141/81 (101) 99 Room Air Notes Mental Status: alert / awake / arousable, participated in evaluation Pt Amnestic to Procedure: Yes Nausea / Vomiting: adequately controlled Pain: adequately controlled Airway Patency, RR, SpO2: stable & adequate BP & HR: stable & adequate Hydration State: stable & adequate Anesthetic Complications: no major complications apparent Awake, doing well, no complaints. VSS.
[2017-04-04 12:55] VITALS: BP 124/69; PULSE 67; TEMP 36.5; O2SAT 93
[2017-04-04 13:25] VITALS: BP 123/69; PULSE 80; TEMP 36.4; O2SAT 94
[2017-04-04 13:55] VITALS: BP 137/71; PULSE 80; TEMP 36.7; O2SAT 96
== END | disposition home or self-care (01) ==
LOC: C.ACU 09:06
PROVIDERS: ATTEND Urology
DX: D49.4 Neoplasm of unspecified behavior of bladder (principal); N30.80 Other cystitis without hematuria; G47.33 Obstructive sleep apnea (adult) (pediatric); I12.9 Hypertensive chronic kidney disease with stage 1 through stage 4 chronic kidney disease, or unspecified chronic kidney disease; N18.3 Chronic kidney disease, stage 3 (moderate); F03.90 Unspecified dementia, unspecified severity, without behavioral disturbance, psychotic disturbance, mood disturbance, and anxiety; E78.5 Hyperlipidemia, unspecified; Z79.01 Long term (current) use of anticoagulants; Z79.899 Other long term (current) drug therapy; Z68.32 Body mass index [BMI] 32.0-32.9, adult; Z98.890 Other specified postprocedural states; Z96.653 Presence of artificial knee joint, bilateral; Z90.49 Acquired absence of other specified parts of digestive tract; Z91.040 Latex allergy status; Z87.891 Personal history of nicotine dependence; Z85.51 Personal history of malignant neoplasm of bladder; Z85.828 Personal history of other malignant neoplasm of skin; Z86.718 Personal history of other venous thrombosis and embolism; Z86.73 Personal history of transient ischemic attack (TIA), and cerebral infarction without residual deficits; Z82.5 Family history of asthma and other chronic lower respiratory diseases; Z80.7 Family history of other malignant neoplasms of lymphoid, hematopoietic and related tissues; Z82.49 Family history of ischemic heart disease and other diseases of the circulatory system

== ENCOUNTER → 2017-08-18 | Day surgery (SDC) | payer OTHER ==
[2017-08-16 10:07] VITALS: Ht 188 cm; Wt 109.1 kg
[~2017-08-18] VITALS: Ht 188 cm; Wt 109.1 kg
[~2017-08-18] MED LIST changes: -ATROPINE SULFATE 0.1 MG/ML 5ML SYR IV PRN; +CETI10TA10 PO; -CIPROFLOXACIN / D5W 400 MG IV SCH; -CIPROFLOXACIN 400MG / D5W IV SCH; +CMD5 PO; -DEXAMETHASONE SOD INJ 4 MG/ML VIAL ONE; -EpHEDrine SULFATE INJ 50 MG/ML AMP IV PRN; -EpHEDrine SULFATE INJ 50 MG/ML AMP ONE; -FENTANYL CITRATE INJ 50 MCG/1 ML 2 ML VIAL IV PRN; -FENTANYL CITRATE INJ 50 MCG/1 ML 2 ML VIAL ONE; +FERR1TAB23 PO; -HYDROmorphone INJ 1 MG/ML SYR IV PRN; -LACTATED RINGER'S 1000ML 1,000 ML IV SCH; -LISI-461 PO; +LISI-725 PO; +MAGN250T3 PO; -ONDANSETRON INJ 2 MG/ML 2 ML VIAL IV PRN; -OXYC-57 PO; -OXYCODONE/ACETAMINOPHEN 5-325 TAB PO PRN; -PHENYLEPHRINE 100MCG/ML 5ML SYR ONE; +SERT-234 PO; -SERT50TA PO; +SODIUM CHLORIDE 0.9% 500ML 500 ML IV ONE; -SODIUM CHLORIDE 0.9% INJ 10 ML VIAL ONE; -WARF2.5T8 PO
--- NOTE | 2017-08-18 09:52 | Endo History and Physical ---
History & Physical Date of Service: Aug 18, 2017. Chief Complaint: Hematochezia Referring Physician: Osterling History of Present Illness Patient with rectal bleeding and heme + stool Past Surgical History Hx Cardiac Surgery: No Hx Internal Defibrillator: No Hx Pacemaker: No Hx Abdominal Surgery: Yes (INCISIONAL HERNIA, ABDOMINAL HERNIA/ABDOMINAL WALL REBUILT, NESTOR) Hx of Implantable Prosthesis: No Hx Post-Op Nausea and Vomiting: No Hx Cancer Surgery: No Hx Thoracic Surgery: No Hx Orthopedic: Yes (RT/LEFT TKA, LEFT FOOT SURGERY, RT/LEFT CTR) Hx Urinary Tract Surgery: Yes (CYSTOSCOPY) Family History None Social History Smoking Status: Former Smoker Hx Substance Use: No Hx Alcohol Use: Yes (occasional wine) Allergies Coded Allergies: Adhesives (Verified Allergy, Intermediate, RED SKIN, 04/04/17) Latex (Unverified Allergy, Unknown, RASH, 04/04/17) NO KNOWN DRUG ALLERGIES (Verified Allergy, Unknown, ., 08/16/17) Current Medications Reported Home Medications Medications Dose Route/Sig Max Daily Dose Days Date Category Magnesium 250 mg (Magnesium) 1 Tab Tab 1 Tab PO QAM 08/16/17 Reported Zyrtec (Cetirizine Hcl) 10 Mg Tab 10 Mg PO QAM 08/16/17 Reported Iron (Ferrous Sulfate) 325 Mg Tab 1 Tab PO QAM 08/16/17 Reported Coumadin (Warfarin Sod) 5 Mg Tab 0.5 Tab PO QPM 08/16/17 Reported Zoloft (Sertraline HCl) 100 Mg Tab 150 Mg PO HS 08/16/17 Reported Zestril (Lisinopril) 20 Mg Tab 20 Mg PO QPM 08/16/17 Reported Flomax (Tamsulosin Hcl) 0.4 Mg Cap 0.4 Mg PO QPM 01/18/17 Reported Namenda (Memantine) 10 Mg Tab 10 Mg PO HS 01/18/17 Reported Avodart (Dutasteride) 0.5 Mg Cap 0.5 Mg PO QPM 01/18/17 Reported Flonase Allergy Relief (Fluticasone Propionate (Nasal)) 50 Mcg/Act Spr 2 Sprays TASHIA QAM 12/03/15 Reported Ocuvite Adult 50+ (Multiple Vitamins W/ Minerals) 1 Cap Cap 1 Cap PO QAM 12/03/15 Reported Lipitor (Atorvastatin Calcium) 40 Mg Tab 40 Mg PO QAM 12/03/15 Reported Multivitamin (Multivitamins) Tab 1 Tablet PO QAM 10/07/08 Reported Vital Signs Weight (Kilograms): 109.09 Height (Feet): 6 Height (Inches): 2 Date Time Temp Pulse Resp B/P (MAP) Pulse Ox O2 Delivery O2 Flow Rate FiO2 08/18/17 09:22 36.4 64 18 118/70 (86) 100 Room Air Physical Exam General Appearance: no apparent distress Respiratory/Chest: Auscultation: breath sounds normal Cardiovascular: Heart Auscultation: RRR Abdomen: Inspection & Palpation: soft Liver: non-tender Assessment and Plan stable for colonoscopy
--- NOTE | 2017-08-18 10:32 | GI REPORT ---
Procedure Date: 08/18/2017 9:31 AM Procedure: Colonoscopy Indications: Hematochezia, Rectal bleeding Medicines: See the Anesthesia note for documentation of the administered medications Complications: No immediate complications. Estimated Blood Loss: Estimated blood loss: none. Procedure: Pre-Anesthesia Assessment: - Prior to the procedure, a History and Physical was performed, and patient medications, allergies and sensitivities were reviewed. The patient's tolerance of previous anesthesia was reviewed. - The risks and benefits of the procedure and the sedation options and risks were discussed with the patient. All questions were answered and informed consent was obtained. - Patient identification and proposed procedure were verified prior to the procedure by the physician and the nurse. The procedure was verified in the pre-procedure area. - Pre-procedure physical examination revealed no contraindications to sedation. - After reviewing the risks and benefits, the patient was deemed in satisfactory condition to undergo the procedure. After I obtained informed consent, the scope was passed under direct vision. Throughout the procedure, the patient's blood pressure, pulse, and oxygen saturations were monitored continuously. The Scope was introduced through the anus and advanced to the cecum, identified by appendiceal orifice and ileocecal valve. The colonoscopy was performed without difficulty. The patient tolerated the procedure well. The quality of the bowel preparation was good. Findings: Hemorrhoids were found on perianal exam. A few small-mouthed diverticula were found in the sigmoid colon. Internal hemorrhoids were found during retroflexion. The hemorrhoids were small. The exam was otherwise without abnormality on direct and retroflexion views. Impression: - Hemorrhoids found on perianal exam. - Diverticulosis in the sigmoid colon. - Internal hemorrhoids. - The examination was otherwise normal on direct and retroflexion views. - No specimens collected. Recommendation: - Discharge patient to home. - Repeat colonoscopy in 5 years for surveillance. Sundeep Barron M.D. Sundeep Barron MD 08/18/2017 10:31:40 AM This report has been signed electronically. Note Initiated On: 08/18/2017 9:31 AM I attest to the content of the Intraoperative Record and orders documented therein, exceptions below
--- NOTE | 2017-08-18 10:32 | Discharge Instructions ---
Endoscopy Patient Instructions Date / Procedure(s) Performed Aug 18, 2017. Colonoscopy Allergy Information Coded Allergies: Adhesives (Verified Allergy, Intermediate, RED SKIN, 04/04/17) Latex (Unverified Allergy, Unknown, RASH, 04/04/17) NO KNOWN DRUG ALLERGIES (Verified Allergy, Unknown, ., 08/16/17) Discharge Date / Findings Aug 18, 2017. Hemorrhoids Provider Instructions Activity Restrictions - No exercising or heavy lifting for 24 hours. - Do not drink alcohol the day of the procedure. - Do not drive a car or operate machinery until the day after the procedure. - Do not make any important decisions or sign important papers in 24 hours after the procedure. Following Day: - Return to full activity which may include returning to work/school. Diet Start your diet with liquids and light foods (jello, soup, juice, toast). Then eat your usual diet if not nauseated. Treatment For Common After Affects For mild abdominal pain, bloating, or excessive gas: - Rest - Eat lightly - Lie on right side Follow-Up Information Follow-up with [facility] as scheduled Anesthesia Information What You Should Know You have had a procedure that required some medicine to reduce anxiety and discomfort. This treatment is called moderate sedation. After receiving the treatment, you may be sleepy, but you will be able to breathe on your own. The effects of the treatment may last for several hours. Follow these instructions along with Activity/Diet recommendations noted above: * Do NOT do anything where dizziness or clumsiness would be dangerous. * Rest quietly at home today, then you can be up and about tomorrow. * Have a responsible person stay with you the rest of today. * You may have had an I.V. today. If so, you may take the dressing off later today. Recommendations Call your doctor if: * Trouble breathing * Continuous vomiting for more than 24 hours * Temperature above 101 degrees * Severe abdominal pain or bloating * Pain not relieved by pain medicine ordered * There is increased drainage or redness from any incision * A large amount of rectal bleeding greater than 2-3 tablespoons. (If you had a polyp/s removed or have hemorrhoids, a small amount of blood - from the rectum is to be expected.) * You have any unanswered questions or concerns. IN THE EVENT OF A SERIOUS EMERGENCY, GO TO THE NEAREST EMERGENCY ROOM Your discharge instructions were prepared by provider Sundeep Barron. Patient Instructions Signature Page Williams Olguin Patient (or Guardian) Signature/Date: I have read and understand the instructions given to me by my caregivers. Caregiver/RN/Doctor Signature/Date: The above-named patient and/or guardian has received patient instructions on this date. + Original Patient Signature Page (only) stays with chart. Please make copy for patient.
[2017-08-18 11:00] VITALS: BP 110/67; PULSE 63; O2SAT 97
--- NOTE | 2017-08-18 11:34 | Anesthesiology Progress Note ---
Anesthesia Post Op Note Date & Time Aug 18, 2017 at 11:33 Vital Signs Pain Intensity: 0 Vital Signs Past 12 Hours Date Time Temp Pulse Resp B/P (MAP) Pulse Ox O2 Delivery O2 Flow Rate FiO2 08/18/17 11:00 63 18 110/67 (81) 97 Room Air 08/18/17 10:47 59 18 99/60 (73) 97 Room Air 08/18/17 10:32 36.4 63 16 91/56 (68) 94 Room Air 08/18/17 09:22 36.4 64 18 118/70 (86) 100 Room Air Notes Mental Status: alert / awake / arousable, participated in evaluation Pt Amnestic to Procedure: Yes Nausea / Vomiting: adequately controlled Pain: adequately controlled Airway Patency, RR, SpO2: stable & adequate BP & HR: stable & adequate Hydration State: stable & adequate Anesthetic Complications: no major complications apparent
== END | disposition home or self-care (01) ==
LOC: C.GI 09:02
PROVIDERS: ATTEND Internal Medicine Gastroenterology
DX: K92.1 Melena (principal); K64.4 Residual hemorrhoidal skin tags; K64.8 Other hemorrhoids; K57.30 Diverticulosis of large intestine without perforation or abscess without bleeding; I10 Essential (primary) hypertension; F03.90 Unspecified dementia, unspecified severity, without behavioral disturbance, psychotic disturbance, mood disturbance, and anxiety; G47.33 Obstructive sleep apnea (adult) (pediatric); N40.0 Benign prostatic hyperplasia without lower urinary tract symptoms; Z86.718 Personal history of other venous thrombosis and embolism; Z86.73 Personal history of transient ischemic attack (TIA), and cerebral infarction without residual deficits; Z91.040 Latex allergy status; Z88.8 Allergy status to other drugs, medicaments and biological substances; Z98.890 Other specified postprocedural states; Z90.49 Acquired absence of other specified parts of digestive tract; Z96.653 Presence of artificial knee joint, bilateral; Z87.891 Personal history of nicotine dependence; Z79.01 Long term (current) use of anticoagulants; Z79.899 Other long term (current) drug therapy; Z85.828 Personal history of other malignant neoplasm of skin

== ENCOUNTER 2023-03-17 13:49 | Inpatient (IN) ==
[2023-03-17] MEDS ORDERED: SODIUM CHLORIDE 0.9% 1,000 ML IV SCH (14:30)
--- NOTE | 2023-03-17 14:53 | Emergency Department Note ---
Impression & Plan Ambulatory dysfunction, Dementia, Back pain, Closed L1 vertebral fracture ED Provider Note NAME: BRYAN WHITFIELD AGE: 78 SEX: M : 1945 ARRIVES VIA: Ambulance INFORMANT: Patient, ED PROVIDER(S): Mynor Peguero MD CHIEF COMPLAINT: Weakness, inability to get up MEDICAL DECISION MAKING: Patient presents with at bedside and does have a known history of dementia. Patient reportedly has had some difficulty with getting up and more frequent falls and does have a prior history of L1 compression fracture. IV was established and blood work is obtained. The patient did have CT head cervical spine completed along with lumbar spine CT. Patient's blood work shows a normal white count with mild anemia hemoglobin 13.4 with normal platelet count. The patient's kidney function is unremarkable. Urinalysis without obvious signs of obvious infection. CT head cervical spine negative. L1 fracture is unchanged. I did convey the findings to the patient the patient's at bedside who does not believe that she can care for him at home at this time. The patient was admitted for possible rehab and/or placement as well as in-home care. Patient was admitted to the medicine service by Dr. Engel. Also of note and conveyed to the inpatient team was that the patient's IVC filter was in the left pelvic vein. This is unchanged from her prior. Discussion w/ other healthcare providers: Yesika Barth PA-C and Dr. Engel Prior /Outside records reviewed: None Differential diagnosis: Infection, dehydration, metabolic abnormality, hypo/hyperglycemia, electrolyte imbalance, anemia, UTI, pneumonia, thyroid dysfunction among others were considered. Diagnostics, as interpreted by me: ECG: A paced rhythm, rate of 64, wide QRS, right upper branch block pattern. Cardiac monitoring: An order was placed for continuous cardiac monitoring. The monitor shows a rate of 65 with paced rhythm. Patient was placed on pulse oximetry Medical decision rules: None Imaging studies: I informally interpreted the patient's CT head which does not show obvious ICH with formal report to follow. HPI: Patient presents due to more frequent falls as well as inability to get up. The patient's at bedside provides the majority of the history. The patient denies any head neck chest or abdominal pain but has had some worsening back pain. The patient has been far more frequently more as frequently as Tuesday. The patient reports that he has a prior L1 fracture. The states that he did suffer this back in December but this seems to have gotten worse given the more frequent falls that he had. The patient does take blood thinning medication for known history of blood clots and did of a fall on Tuesday. Unsure as whether or not the patient had any head strike. states that she brought him in today and was pending a bone density scan via Dr. Andrews's has had worsening issues with his knees and prior total knee replacements. Patient states that today he was unable to get out of bed even with assistance from his . PAST MEDICAL HISTORY: See Below PAST SURGICAL HISTORY: See Below SOCIAL HISTORY: See Below HOME MEDICATIONS: See Below ALLERGIES: See Below VITALS: See Below PHYSICAL EXAMINATION: GENERAL: NAD, non-toxic. EYE EXAM: Normal conjunctiva. PERRL, no anisocoria and EOM's grossly intact w/o pain. Head: Normocephalic atraumatic. OROPHARYNX: Moist mucus membranes, grossly normal dentition. NECK: Supple, no nuchal rigidity, no adenopathy, non-tender. No signs of meningismus. FROM of the neck with good chin to chest and neck extension. No stridor. LUNGS: Clear to auscultation. Normal chest wall mechanics. HEART: NSR, no MRG. ABDOMEN: Abdomen soft, non-tender, no masses, no rebound or guarding. BACK: Mild midline lumbar discomfort without paraspinal pain or thoracic pain. SKIN: No rashes and no bruising. UPPER EXTREMITIES: Upper extremities are grossly normal. LOWER EXTREMITIES: Grossly normal, no edema. Well-healed anterior knee incisional scars. NEURO EXAM: Oriented to person in the room, cranial nerves II-XII grossly intact, normal speech, moves all 4 extremities. Negative straight leg raise bilaterally. Past Med/Surg History Medical History Benign prostatic hyperplasia with urinary obstruction Dementia Adjustment disorder with depressed mood Chronic cerebral ischemia Idiopathic peripheral neuropathy Sensory ataxia Thrombocytopenia CHRONIC BASELINE LOW 100'S Obesity Depression PAF (paroxysmal atrial fibrillation) Bifascicular bundle branch block CHRONIC DATING BACK TO AT LEAST 2016 Neuropathy BILATERAL LEGS/FEET Anemia Dementia "MILD" BPH (benign prostatic hyperplasia) Hearing deficit Hyperlipidemia Hypertension Deep vein thrombosis LLE DVT 1995; IVC FILTER PLACED Pacemaker IMPLANTED 09/14/17 2/2 [employer]ACHYBR[employer]Y [employer]OME/SSS [employer]; LAST CHECKED 02/16/18 Transient ischemic attack (TIA) 2009 Pulmonary embolism 2016- ON WARFARIN Afib Surgical History Hx of hemorrhoidectomy History of permanent cardiac pacemaker placement IMPLANTED 09/14/17 History of elbow surgery RIGHT ELBOW SURGERY 11/2017 S/P MECHANICAL FALL H/O foot surgery LEFT S/P IVC filter 1995 History of total knee replacement BILATERAL History of cystoscopy History of colonoscopy History of herniorrhaphy INCISIONAL HERNIA REPAIR History of cholecystectomy OPEN History of nasal septoplasty History of cardiac cath 2009= NO STENTS Family History Father COPD (chronic obstructive pulmonary disease) Hypertension Mother Hodgkin lymphoma Social History Smoking Status: Former smoker Cigarettes Per Day: QUIT 45 YEARS AGO; Second Hand Exposure: No; Do You Dip or Chew Tobacco: No; Hx Alcohol Use: No Hx Substance Use: No Preferred Language: [place] Communication Ability: Effective Visual Impairment: No Limitations Director Of Student Affairs Required: No Beliefs That Will Affect Care: None marital status: Current Living Situation: Spouse Current Living Situation Comment: 1 level rental home, no stairs, ramp to enter home and handicap accessible Other Information That Helps Us Care for You: No Feels Safe at Home: Yes Safety Concerns: Feels Safe At This Time Assistive Devices: Contacts and CPAP Allergies Allergies Allergy/AdvReac Type Severity Reaction Status Date / Time adhesive Allergy Intermediate SKIN Verified 03/17/23 16:20 IRRITATION WITH TAPE latex Allergy Intermediate Rash Verified 03/17/23 16:20 Home Meds Home Medications Medication Instructions Recorded Confirmed atorvastatin 40 mg tablet 80 mg PO QPM #0 tabs 12/03/15 03/17/23 fluticasone propionate 50 2 spray intranasal DAILY ##0 12/03/15 03/17/23 mcg/actuation nasal spray,suspension cetirizine 10 mg tablet (Zyrtec) 10 mg PO QAM #0 tabs 08/16/17 03/17/23 ferrous sulfate 325 mg (65 mg 325 mg PO QAM ##0 08/16/17 03/17/23 iron) tablet magnesium 250 mg tablet 250 mg PO QAM ##0 08/16/17 03/17/23 sertraline 100 mg tablet 150 mg PO QPM #0 tabs 08/16/17 03/17/23 warfarin 5 mg tablet 2.5 mg PO SUTUTH@1600 ##0 08/16/17 03/17/23 sotalol 80 mg tablet 80 mg PO BID 90 days #180 tabs 11/07/17 03/17/23 zqcvhtnvjzpv-tlh-rdjmm acid-vit 1 tab PO QAM 02/10/18 03/17/23 K-lycop 400 mcg-20 mcg-370 mcg tablet (Men's 50 Plus Daily Formula) ofloxacin 0.3 % ear drops 4 drp otic (ear) WK 02/10/18 03/17/23 aspirin 81 mg chewable tablet 81 mg PO DAILY 08/23/22 03/17/23 albuterol sulfate 90 mcg/actuation 2 puff inhalation Q6H PRN 03/17/23 03/17/23 aerosol inhaler Shortness Of Breath Or Wheezing fluticasone propionate 230 2 puff inhalation AMPM 03/17/23 03/17/23 mcg-salmeterol 21 mcg/actuation HFA inhaler (Advair HFA) gkwhlgrf-cak- 250 mg-dha 90 1 cap PO QAM 03/17/23 03/17/23 mg-epa 160 rr-hnni-twwp-zeax capsule (Ocuvite Adult 50 Plus) warfarin 5 mg tablet 5 mg PO MOWEFRSA@1600 03/17/23 03/17/23 zafirlukast 20 mg tablet 10 mg PO BID 03/17/23 03/17/23 Previous Rx's Medication Instructions Recorded walker #1 ea 07/28/20 memantine 10 mg tablet 10 mg PO BID #180 tabs 09/13/22 dutasteride 0.5 mg capsule 0.5 mg PO DAILY #90 caps 09/23/22 solifenacin 10 mg tablet (Vesicare) 10 mg PO DAILY #90 tabs 09/23/22 tamsulosin 0.4 mg capsule 0.4 mg PO DAILY #90 caps 09/23/22 Results & Data (ED) Vital Signs Vital Signs - 24 hr 03/17/23 13:41 03/17/23 14:00 03/17/23 14:50 Temperature 36.9 C Temperature Source Oral Pulse Rate 88 73 Pulse Rate [Apical] Respiratory Rate 15 Respiratory Effort / Characteristics Non-Labored Respiratory Depth Normal Blood Pressure 154/110 H Blood Pressure [Left Arm] Blood Pressure Mean 124 Blood Pressure Mean [Left Arm] Blood Pressure Position [Left Arm] Pulse Oximetry 93 97 Oxygen Delivery Method Room Air Room Air Sepsis Recent Fever Within 48 Hours No Sepsis New/Unexplained Change in Mental Status No Sepsis Action Taken by Nursing No Action Required 03/17/23 16:38 Temperature Temperature Source Pulse Rate Pulse Rate [Apical] 84 Respiratory Rate 16 Respiratory Effort / Characteristics Respiratory Depth Normal Blood Pressure Blood Pressure [Left Arm] 156/82 H Blood Pressure Mean Blood Pressure Mean [Left Arm] 106 Blood Pressure Position [Left Arm] Lying Pulse Oximetry 97 Oxygen Delivery Method Room Air Sepsis Recent Fever Within 48 Hours Sepsis New/Unexplained Change in Mental Status Sepsis Action Taken by Assisted Medications Current Medication List: was personally reviewed by me Laboratory Data Attestation: I reviewed the patient's lab results. 03/18/23 07:08 03/18/23 07:08 Lab Results 03/17/23 03/17/23 03/17/23 Range/Units 14:40 14:45 14:48 WBC 7.61 (4.8-10.8) K/ul RBC 4.03 L (4.70-6.10) M/uL Hgb 13.4 L (14.0-18.0) g/dl Hct 40.5 L (42.0-52.0) % MCV 100.5 H (80.0-100.0) fL MCH 33.3 (25.0-34.0) pg MCHC 33.1 (32.0-36.0) g/dL RDW Std Deviation 51.0 H (36.4-46.3) fL RDW Coeff of Cat 13.8 (11.5-14.5) % Plt Count 216 (130-400) K/uL MPV 12.6 H (9.4-12.4) fL Immature Gran % (Auto) 0.3 % Neut % (Auto) 60.4 % Lymph % (Auto) 17.0 % Mcmullen % (Auto) 20.1 % Eos % (Auto) 2.1 % Baso % (Auto) 0.1 % Neut # (Auto) 4.60 (1.40-6.50) K/uL Lymph # (Auto) 1.29 (1.20-3.40) K/uL Mcmullen # (Auto) 1.53 H (0.11-0.59) K/uL Eos # (Auto) 0.16 (0.00-0.50) K/uL Baso # (Auto) 0.01 (0.00-0.20) K/uL Immature Gran # (Auto) 0.02 (0.01-0.20) K/uL PT 24.6 H (9.0-12.0) Seconds INR 2.4 H (0.9-1.1) Sodium 139 (136-145) mmol/L Potassium 3.9 (3.5-5.1) mmol/L Chloride 106 (98-107) mmol/L Carbon Dioxide 28 (21-32) mmol/L Anion Gap 5 (3-11) BUN 17 (6-23) mg/dl Creatinine 1.03 (0.6-1.4) mg/dl Est Cr Clr Drug Dosing 78.3 ml/min Est GFR ( Amer) 81.4 ml/min Est GFR (Non-Af Amer) 70.2 ml/min BUN/Creatinine Ratio 16.5 (10-20) Glucose 104 H (70-99(Fasting)) mg/dl Calcium 9.8 (8.6-10.3) mg/dl Magnesium 2.2 (1.7-2.4) mg/dl Total Bilirubin 1.3 H (0.2-1.0) mg/dl AST 25 (13-39) U/L ALT 17 (7-52) U/L Alkaline Phosphatase 105 H (34-104) U/L Total Protein 7.9 (6.0-8.3) gm/dl Albumin 4.2 (3.4-5.0) gm/dl Globulin 3.7 (2.5-4.0) gm/dl Albumin/Globulin Ratio 1.1 (0.9-2) TSH 2.156 (0.300-4.500) uIu/ml Urine Color Yellow Urine Appearance Cloudy A (Clear) Urine pH 7.5 (4.5-7.5) Ur Specific Ewing 1.013 (1.000-1.030) Urine Protein Negative (Negative) Urine Glucose (UA) Negative (Negative) Urine Ketones Negative (Negative) Urine Blood 1+ H (Negative) Urine Nitrite Negative (Negative) Urine Bilirubin Negative (Negative) Urine Urobilinogen Negative (Negative) Ur Leukocyte Esterase Negative (Negative) Urine WBC (Auto) 1-5 (0-5) /hpf Urine RBC (Auto) 0-4 (0-4) /hpf U Hyaline Cast (Auto) 1-5 (0-5) /lpf U Epithel Cells (Auto) 5-10 H (0-5) /lpf Urine Bacteria (Auto) Negative (Negative) Urine Crystals Not Reportable Amorphous Sediment Present A (None Prsent) Administered Medications Acetaminophen (Acetaminophen 325 Mg Tab) 650 mg PO Q8H [facility] Stop: 04/16/23 17:46 Last Admin: 03/18/23 05:41 Dose: 650 mg Documented By: Admin: 03/17/23 21:20 Dose: 650 mg Documented By: TAMMI Atorvastatin Calcium (Atorvastatin 40 Mg Tab) 80 mg PO QPM [facility] Stop: 04/16/23 20:59 Last Admin: 03/17/23 20:09 Dose: 80 mg Documented By: TAMMI Diclofenac Sodium (Diclofenac Sod 1% Gel 100 Gm Tube) 4 gm EXT QID [facility]; Protocol Stop: 04/16/23 20:59 Last Admin: 03/17/23 20:08 Dose: 4 gm Documented By: TAMMI Memantine (Memantine Hcl 10 Mg Tab) 10 mg PO BID [facility] Stop: 04/16/23 20:59 Last Admin: 03/17/23 20:09 Dose: 10 mg Documented By: TAMMI Miscellaneous (Zafirlukast- Order Awaiting Action) 1 each N/A QS [facility] Stop: 04/17/23 00:00 Last Admin: 03/17/23 23:31 Dose: Not Given Documented By: TAMMI Sertraline HCl (Sertraline Hcl 50 Mg Tablet) 150 mg PO QPM [facility] Stop: 04/16/23 20:59 Last Admin: 03/17/23 20:09 Dose: 150 mg Documented By: TAMMI Sotalol HCl (Sotalol Hcl 80 Mg Tab) 80 mg PO BID [facility] Stop: 04/16/23 20:59 Last Admin: 03/17/23 20:08 Dose: 80 mg Documented By: TAMMI Warfarin Sodium (Warfarin Sod 2.5 Mg Tab) 2.5 mg PO SUTUTH@1600 [facility] Stop: 04/16/23 17:46 Last Admin: 03/17/23 20:09 Dose: 2.5 mg Documented By: TAMMI Discontinued Medications Sodium Chloride (Nss) 1,000 mls @ 999 mls/hr IV .Q1H1M [facility] Stop: 03/17/23 15:30 Last Infusion: 03/17/23 16:53 Dose: Infused Documented By: Admin: 03/17/23 14:44 Dose: 999 mls/hr Documented By: JEREMIAH Influenza Virus Vaccine (Influenza Vaccine High-Dose (Hd-Iiv4) Pf 65+ 0.7ml Syr) 0.7 ml IM .ONCE ONE Stop: 03/17/23 18:21 Last Admin: 03/18/23 05:41 Dose: 0.7 ml Documented By: TAMMI Imaging Data Radiologist's Impression: Cervical Spine CT 03/17/23 14:30 CT cervical spine wo con CLINICAL HISTORY: 78 years-old Male with fall, worsening amb dysfunction, coumadin. Acute head and neck injury status post fall COMPARISON: Head CT of same day, CT cervical spine 06/27/2022 TECHNIQUE: Multiple axial CT images of the cervical spine were obtained without contrast. A dose lowering technique was utilized adhering to the principles of ALARA. FINDINGS: The visualized appearance of the bones. Multilevel changes are redemonstrated including severe disc space narrowing at C5-C6 and C6/C7 with moderate multilevel spondylotic spurring and moderate to severe facet arthrosis. Mild T2 and T3 superior endplate compression deformities without retropulsion appear chronic. No acute cervical spine fracture or subluxation identified. The cervical soft tissues appear unremarkable. Right mastoidectomy changes. The visualized lung apices appear clear. IMPRESSION: No acute cervical spine fracture or subluxation identified. ACT 112: Negative or not required by law. The above report was generated using voice recognition software. It may contain grammatical, syntax or spelling errors. Electronically signed by: Irwin Hu M.D. 03/17/2023 4:[address] 03/17/23 14:30 CT head/brain wo con CLINICAL HISTORY: fall, worsening amb dysfunction, coumadin Technique: Contiguous axial CT images of the head were acquired from the base of the skull to the vertex without intravenous contrast administration. Images were viewed in brain, subdural and bone windows. Automated dose lowering techniques and/or adjustment according to patient size were utilized for this exam. Comparison: Comparison is made to CT head 06/27/2022 Findings: Areas of decreased attenuation are present in the periventricular and subcortical white matter bilaterally consistent with small vessel ischemic disease. Generalized cerebral atrophy with commensurate enlargement of the ventricles, sulci, and cisterns is also present. There is no acute intracranial hemorrhage or evidence of acute territorial infarction. No shift of the midline structures, mass effect, or extra-axial abnormalities are shown. Atherosclerotic calcifications are present in the intracranial segments of the internal carotid arteries. Soft tissue thickening seen in the sinuses most prominently in the right frontal sinuses and ethmoid air cells. The orbits appear normal. There are no acute fractures of the calvaria or scalp swelling. Impression: No acute intracranial hemorrhage, no evidence of acute territorial infarction or other acute intracranial disease process. ACT 112: Negative or not required by law. Electronically signed by: Blas Naqvi M.D. 03/17/2023 3:[address] 03/17/23 14:30 CT SCAN OF THE LUMBAR SPINE WITHOUT IV CONTRAST CLINICAL HISTORY: Fall. Ambulatory dysfunction. COMPARISON STUDY: CT scan of the lumbar spine dated 11/15/2020. MRI of the lumbar spine dated 12/30/2022. TECHNIQUE: CT scan of the lumbar spine was performed from the lower thoracic spine to the sacrum. Images are reviewed in the axial, sagittal, and coronal planes. IV contrast was not administered for this examination. A dose lowering technique was utilized adhering to the principles of ALARA. FINDINGS: The skeletal structures are osteopenic. There is no evidence of acute fracture or malalignment involving the lumbar spine. A subacute-appearing burst type compression fracture is seen involving the body of L1. Loss of height is similar to the 12/30/2022 MRI examination. There are minimally retropulsed fragments, with no significant acquired compromise of the central canal. Vertebral body height is otherwise maintained throughout the lumbar spine. There is minimal anterolisthesis of L4-L5. Alignment is otherwise preserved. Small anterior and lateral marginal osteophytes are seen throughout. The transverse and spinous processes appear intact. There is no spondylolysis. No lytic or blastic lesion is seen. There is mild multilevel degenerative disc space narrowing throughout the lumbar spine. There is no CT evidence of high-grade central canal stenosis. Paravertebral edema is seen at L1. The visualized sacrum and bony pelvis appear intact. An IVC filter is noted within a left pelvic vein anterior to the sacrum. This is unchanged from previous. There is fatty atrophy of the paraspinous musculature. There is moderate atherosclerotic calcification of the abdominal aorta which is normal in caliber. IMPRESSION: 1. There is no evidence of acute fracture or malalignment involving the lumbar spine. 2. A subacute burst type compression fracture of L1 is again noted. Loss of height is similar to the 12/30/2022 MRI. 3. Osteopenia and degenerative change as above. 4. An IVC filter is again seen within a left pelvic vein anterior to the sacrum. This is unchanged in position from previous. ACT 112: Negative or not required by law. Dictated: 03/17/2023 3:34 PM Transcribed: 03/17/2023 3:51 PM Tere [id number] [email or web address] [id number] Electronically signed by: Kel Brooks M.D. 03/17/2023 4:00 PM Discharge Plan Visit Data Chief Complaint: Fall ED Provider: Mynor Peguero Discharge Problem: Ambulatory dysfunction, Dementia, Back pain, Closed L1 vertebral fracture Patient Disposition: Admitted As Inpatient Discharge Instructions Interventions: ED Discharge Assessment Last Done: 03/17/23 17:33 Discharge Problem: Dementia Qualifiers: Dementia type: unspecified type Dementia severity: unspecified severity D ementia behavioral or psychological symptom: unspecified whether behavioral, psychotic, or mood disturbance or anxiety Qualified Code(s): F03.90 - Unspecified dementia, unspecified severity, without behavioral disturbance, psychotic disturbance, mood disturbance, and anxiety Back pain Qualifiers: Back pain location: low back pain Chronicity: acute Back pain laterality: m idline Sciatica presence: without sciatica Qualified Code(s): M54.50 - Low back pain, unspecified Closed L1 vertebral fracture Qualifiers: Encounter type: subsequent encounter Fracture morphology: burst- stable
[2023-03-17 15:18] LABS: Appearance Urine Cloudy (Clear); Bacteria Urine Automated Negative (Negative); Bilirubin Urine Negative (Negative); Blood Urine 1+ (Negative); Color Urine Yellow; Glucose Urine UA Negative (Negative); Ketones Urine Negative (Negative); Leukocyte Esterase Urine Negative (Negative); Nitrite Urine Negative (Negative); Protein Urine Negative (Negative); RBC Urine Automated 0-4 /hpf (0-4); Specific Gravity Urine 1.013 (1.000-1.030); Urobilinogen Urine Negative (Negative); pH Urine 7.5 (4.5-7.5)
[2023-03-17 15:22] LABS: Basophils # (auto) 0.01 K/uL (0.00-0.20); Basophils % (auto) 0.1 %; Eosinophils # (auto) 0.16 K/uL (0.00-0.50); Eosinophils % (auto) 2.1 %; Hematocrit (blood only) 40.5 % (42.0-52.0); Hemoglobin 13.4 g/dl (14.0-18.0); Immature Granulocytes # (auto) 0.02 K/uL (0.01-0.20); Immature Granulocytes % (auto) 0.3 %; Lymphocytes # (auto) 1.29 K/uL (1.20-3.40); Mean Corpuscular Hemoglobin 33.3 pg (25.0-34.0); Mean Corpuscular Hgb Conc 33.1 g/dL (32.0-36.0); Mean Corpuscular Volume 100.5 fL (80.0-100.0); Mean Platelet Volume 12.6 fL (9.4-12.4); Monocytes # (auto) 1.53 K/uL (0.11-0.59); Monocytes % (auto) 20.1 %; Neutrophils % (auto) 60.4 %; Platelet Count 216 K/uL (130-400); RDW Coefficient of Variation 13.8 % (11.5-14.5); Red Blood Count 4.03 M/uL (4.70-6.10); White Blood Count 7.61 K/ul (4.8-10.8)
--- NOTE | 2023-03-17 15:28 | CT Scan Report ---
CT head/brain wo con CLINICAL HISTORY: fall, worsening amb dysfunction, coumadin Technique: Contiguous axial CT images of the head were acquired from the base of the skull to the guillermina joelle without intravenous contrast administration. Images were viewed in brain, subdural and bone windo ws. Automated dose lowering techniques and/or adjustment according to patient size were utilized for this exam. Comparison: Comparison is made to CT head 06/27/2022 Findings: Areas of decreased attenuation are present in the periventricular and subcortical white matter bilate rally consistent with small vessel ischemic disease. Generalized cerebral atrophy with commensurate e nlargement of the ventricles, sulci, and cisterns is also present. There is no acute intracranial hem orrhage or evidence of acute territorial infarction. No shift of the midline structures, mass effect, or extra-axial abnormalities are shown. Atherosclerotic calcifications are present in the intracran ial segments of the internal carotid arteries. Soft tissue thickening seen in the sinuses most prominently in the right frontal sinuses and ethmoid air cells. The orbits appear normal. There are no acute fractures of the calvaria or scalp swelling. Impression: No acute intracranial hemorrhage, no evidence of acute territorial infarction or other acute intracra nial disease process. ACT 112: Negative or not required by law. Electronically signed by: Blas Naqvi M.D. 03/17/2023 3:27 PM
[2023-03-17 15:34] LABS: Amorphous Sediment Urine Present (None Prsent)
[2023-03-17 15:40] LABS: Albumin Globulin Ratio 1.1 (0.9-2); Albumin Level 4.2 gm/dl (3.4-5.0); BUN Creatinine Ratio 16.5 (10-20); Bilirubin,Total 1.3 mg/dl (0.2-1.0); Calcium 9.8 mg/dl (8.6-10.3); Creatinine Clr Calc Pharmacy 78.3 ml/min; Est GFR (African American) 81.4 ml/min; Est GFR (Non-African American) 70.2 ml/min; Globulin 3.7 gm/dl (2.5-4.0); Magnesium 2.2 mg/dl (1.7-2.4); Potassium 3.9 mmol/L (3.5-5.1); Total Protein 7.9 gm/dl (6.0-8.3)
[2023-03-17 15:54] LABS: Thyroid Stimulating Hormone 2.156 uIu/ml (0.300-4.500)
--- NOTE | 2023-03-17 16:01 | CT Scan Report ---
CT SCAN OF THE LUMBAR SPINE WITHOUT IV CONTRAST CLINICAL HISTORY: Fall. Ambulatory dysfunction. COMPARISON STUDY: CT scan of the lumbar spine dated 11/15/2020. MRI of the lumbar spine dated 3. TECHNIQUE: CT scan of the lumbar spine was performed from the lower thoracic spine to the sacrum. Zaira ges are reviewed in the axial, sagittal, and coronal planes. IV contrast was not administered for thi s examination. A dose lowering technique was utilized adhering to the principles of ALARA. FINDINGS: The skeletal structures are osteopenic. There is no evidence of acute fracture or malalignm ent involving the lumbar spine. A subacute-appearing burst type compression fracture is seen involvin g the body of L1. Loss of height is similar to the 12/30/2022 MRI examination. There are minimally ret ropulsed fragments, with no significant acquired compromise of the central canal. Vertebral body heig ht is otherwise maintained throughout the lumbar spine. There is minimal anterolisthesis of L4-L5. Al ignment is otherwise preserved. Small anterior and lateral marginal osteophytes are seen throughout. The transverse and spinous processes appear intact. There is no spondylolysis. No lytic or blastic le rima is seen. There is mild multilevel degenerative disc space narrowing throughout the lumbar spine. There is no CT evidence of high-grade central canal stenosis. Paravertebral edema is seen at L1. The visualized sacrum and bony pelvis appear intact. An IVC filter is noted within a left pelvic vein an terior to the sacrum. This is unchanged from previous. There is fatty atrophy of the paraspinous musc ulature. There is moderate atherosclerotic calcification of the abdominal aorta which is normal in ca liber. IMPRESSION: 1. There is no evidence of acute fracture or malalignment involving the lumbar spine. 2. A subacute burst type compression fracture of L1 is again noted. Loss of height is similar to the 12/30/2022 MRI. 3. Osteopenia and degenerative change as above. 4. An IVC filter is again seen within a left pelvic vein anterior to the sacrum. This is unchanged in position from previous. ACT 112: Negative or not required by law. Dictated: 03/17/2023 3:34 PM Transcribed: 03/17/2023 3:51 PM Tere [id number] Karl [id number] Electronically signed by: Kel Brooks M.D. 03/17/2023 4:00 PM
--- NOTE | 2023-03-17 16:13 | CT Scan Report ---
CT cervical spine wo con CLINICAL HISTORY: 78 years-old Male with fall, worsening amb dysfunction, coumadin. Acute head and n hardy injury status post fall COMPARISON: Head CT of same day, CT cervical spine 06/27/2022 TECHNIQUE: Multiple axial CT images of the cervical spine were obtained without contrast. A dose low ering technique was utilized adhering to the principles of ALARA. FINDINGS: The visualized appearance of the bones. Multilevel changes are redemonstrated including sev ere disc space narrowing at C5-C6 and C6/C7 with moderate multilevel spondylotic spurring and moderat e to severe facet arthrosis. Mild T2 and T3 superior endplate compression deformities without retropu lsion appear chronic. No acute cervical spine fracture or subluxation identified. The cervical soft tissues appear unremarkable. Right mastoidectomy changes. The visualized lung apice s appear clear. IMPRESSION: No acute cervical spine fracture or subluxation identified. ACT 112: Negative or not required by law. The above report was generated using voice recognition software. It may contain grammatical, syntax o r spelling errors. Electronically signed by: Irwin Hu M.D. 03/17/2023 4:11 PM
--- NOTE | 2023-03-17 16:29 | History & Physical Report ---
Date of Service March 17, 2023 Assessment & Plan (1) Ambulatory dysfunction: (2) Frequent falls: (3) Chronic knee pain after total replacement of both knee joints: (4) Compression fracture of L1 lumbar vertebra: (5) Idiopathic peripheral neuropathy: (6) Sensory ataxia: (7) Chronic cerebral ischemia: (8) Vascular dementia: (9) PAF (paroxysmal atrial fibrillation): Plan This is a 78-year-old male who has a significant past medical history of vascular dementia, HTN, HLD, ARIS, moderate persistent asthma, PAF on warfarin, sick sinus syndrome, permanent pacemaker in place, chronic DVT, GERD, chronic ITP and CKD stage III presents to ED secondary to recent fall and inability to care for self at home. Ambulatory dysfunction Frequent falls Chronic knee pain after total replacement of both knee joints, and right knee exchange Subacute compression fracture of L1 with 30% vertebral volume loss Idiopathic peripheral neuropathy with sensory ataxia Admit to medical Repeat lumbar spine MRI, pacemaker is MRI compatible to rule out lumbar spine etiology progressing lower extremity weakness I suspect lower extremity weakness as result of chronic bilateral knee pain as well as peripheral neuropathy and sensory ataxia Consult orthopedic spine: Patient previously seen by orthospine at [facility] and initially kyphoplasty was entertained however symptoms have improved. He has having increased back pain secondary to recent fall [facility] in regards to significant knee pain, he was to have a bone scan today, could consider MRI due to pacemaker compatibility Consult PT/OT Schedule Tylenol, ice 3 times daily, Voltaren gel and as needed tramadol Encouraging patient and to take tramadol prior to PT PAF TBS status post PPM Continue sotalol and warfarin therapy INR is therapeutic Outpatient regimen is 1.25 mg Tuesday, , Tuesday and 2.5 mg all other day ARIS CPAP at bedtime Moderate persistent asthma No acute exacerbation Chronic, stable Continue inhalers CKD stage III Chronic, stable Baseline creatinine 1-1.2 Follows [facility]. Willoughby History of DVT/PE On warfarin [place] filter in place Vascular dementia Continue supportive care Namenda chronic, stable, A and O x 3 at baseline, difficulty with short term DNR/DNI PCP: [place] Dispo: admit to med/surg, PT/OT, Pt likely to need rehab Pt was seen and examined in collaboration with Dr. Engel, please see addendum A total of 85 was spent coordinating, documenting, and providing care for this patient excluding time spent in the performance of separately billed services. This included personally viewing all current laboratories and imaging studies, medication reconciliation, outpatient chart review, and discussion with specialists. History of Present Illness Chief Complaint: Freq falls, chronic b/l knee pain, worsened weakness. Primary Care Provider: Leno Salas MD This is a 78-year-old male who has a significant past medical history of vascular dementia, HTN, HLD, ARIS, moderate persistent asthma, PAF on warfarin, sick sinus syndrome, permanent pacemaker in place, chronic DVT, GERD, chronic ITP and CKD stage III presents to ED secondary to recent fall and inability to care for self at home. Patient's is at bedside who also helps elicit history. Over the last several months patient has had frequent falls. He falls approximately 5-7 times in a 1 week timeframe. This past week he has fallen 5 times and hit his head twice. He denies any injury or loss of consciousness. He states he falls due to, "losing his balance, knee pain and just general weakness." Of significance patient had a significant fall at the end of November where he was diagnosed with a L1 compression fracture. He had MRI in December. He was seen and evaluated by orthopedic spine down in [place] who initially was considering kyphoplasty but due to pain improvement recommend conservative measures. also elicits that in regards to his back his pain has been improving over the last several weeks until his fall today. Patient fell this morning and was unable to get patient up. She states due to his persistent and worsening chronic bilateral knee pain that he is unable to push off his legs and get him up. He also follows neurology due to idiopathic peripheral neuropathy. He was tried on gabapentin 300 mg and this made him, "like motion." He then was reduced to 100 mg which she seemed to tolerate. At home he mostly uses Tylenol, ice as well as Voltaren gel for his knee pain. Of significance he has had bilateral knee replacements back in 2009 and a right knee exchange [place] [address] Andrews. He was to undergo a bone scan today due to persistent pain and normal x-rays, but unfortunately ended up in the ER. He denies bowel or bladder incontinence. He has not taken any of his medications today. He otherwise denies any recent illness, fever, chills, sweats, lightheadedness, d izziness, chest pain, shortness of breath, nausea, vomiting or abdominal pain. He otherwise has a good appetite. He is hard of hearing and due to vascular dementia has difficulty with short-term memory. In ED patient underwent repeat lumbar spine CT which again shows a possible subacute L1 burst fracture which appears similar to that of MRI from December 2022. Head CT and cervical spine CT without acute abnormality. [employer] [facility] records thoroughly reviewed. Allergies Allergy/AdvReac Type Severity Reaction Status Date / Time adhesive Allergy Intermediate SKIN Verified 03/17/23 16:20 IRRITATION WITH TAPE latex Allergy Intermediate Rash Verified 03/17/23 16:20 Home Medications Medication Instructions Recorded Confirmed Type atorvastatin 40 mg tablet 80 mg PO QPM #0 tabs 12/03/15 03/17/23 History fluticasone propionate 50 2 spray intranasal DAILY ##0 12/03/15 03/17/23 History mcg/actuation nasal spray,suspension cetirizine 10 mg tablet (Zyrtec) 10 mg PO QAM #0 tabs 08/16/17 03/17/23 History ferrous sulfate 325 mg (65 mg 325 mg PO QAM ##0 08/16/17 03/17/23 History iron) tablet magnesium 250 mg tablet 250 mg PO QAM ##0 08/16/17 03/17/23 History sertraline 100 mg tablet 150 mg PO QPM #0 tabs 08/16/17 03/17/23 History warfarin 5 mg tablet 2.5 mg PO SUTUTH@1600 ##0 08/16/17 03/17/23 History sotalol 80 mg tablet 80 mg PO BID 90 days #180 tabs 11/07/17 03/17/23 History usthxwcbjbzs-agj-uvypi acid-vit 1 tab PO QAM 02/10/18 03/17/23 History K-lycop 400 mcg-20 mcg-370 mcg tablet (Men's 50 Plus Daily Formula) ofloxacin 0.3 % ear drops 4 drp otic (ear) WK 02/10/18 03/17/23 History walker #1 ea 07/28/20 02/25/23 Rx aspirin 81 mg chewable tablet 81 mg PO DAILY 08/23/22 03/17/23 History memantine 10 mg tablet 10 mg PO BID #180 tabs 09/13/22 03/17/23 Rx dutasteride 0.5 mg capsule 0.5 mg PO DAILY #90 caps 09/23/22 03/17/23 Rx solifenacin 10 mg tablet (Vesicare) 10 mg PO DAILY #90 tabs 09/23/22 03/17/23 Rx tamsulosin 0.4 mg capsule 0.4 mg PO DAILY #90 caps 09/23/22 03/17/23 Rx albuterol sulfate 90 mcg/actuation 2 puff inhalation Q6H PRN 03/17/23 03/17/23 History aerosol inhaler Shortness Of Breath Or Wheezing fluticasone propionate 230 2 puff inhalation AMPM 03/17/23 03/17/23 History mcg-salmeterol 21 mcg/actuation HFA inhaler (Advair HFA) slozilbd-jwi-[id number] 250 mg-dha 90 1 cap PO QAM 03/17/23 03/17/23 History mg-epa 160 vm-qzga-xdpk-zeax capsule (Ocuvite Adult 50 Plus) warfarin 5 mg tablet 5 mg PO MOWEFRSA@1600 03/17/23 03/17/23 History zafirlukast 20 mg tablet 10 mg PO BID 03/17/23 03/17/23 History Past Med/Surg History Medical History (Updated 03/17/23 @ 17:40 by Yesika Barth PA-C) Benign prostatic hyperplasia with urinary obstruction Dementia Adjustment disorder with depressed mood Chronic cerebral ischemia Idiopathic peripheral neuropathy Sensory ataxia Thrombocytopenia CHRONIC BASELINE LOW 100'S Obesity Depression PAF (paroxysmal atrial fibrillation) Bifascicular bundle branch block CHRONIC DATING BACK TO AT LEAST 2016 Neuropathy BILATERAL LEGS/FEET Anemia Dementia "MILD" BPH (benign prostatic hyperplasia) Hearing deficit Hyperlipidemia Hypertension Deep vein thrombosis LLE DVT 1995; IVC FILTER PLACED Pacemaker IMPLANTED 09/14/17 2/2 [employer]ACHYBRADY SYNDROME/SSS [employer]; LAST CHECKED 02/16/18 Transient ischemic attack (TIA) 2009 Pulmonary embolism 2016- ON WARFARIN Afib Surgical History Hx of hemorrhoidectomy History of permanent cardiac pacemaker placement IMPLANTED 09/14/17 History of elbow surgery RIGHT ELBOW SURGERY 11/2017 S/P MECHANICAL FALL H/O foot surgery LEFT S/P IVC filter 1995 History of total knee replacement BILATERAL History of cystoscopy History of colonoscopy History of herniorrhaphy INCISIONAL HERNIA REPAIR History of cholecystectomy OPEN History of nasal septoplasty History of cardiac cath 2009= NO STENTS Family History Father COPD (chronic obstructive pulmonary disease) Hypertension Mother Hodgkin lymphoma Social History Smoking Status: Former smoker Cigarettes Per Day: QUIT 45 YEARS AGO; Second Hand Exposure: No; Do You Dip or Chew Tobacco: No; Hx Alcohol Use: No Hx Substance Use: No Preferred Language: Albanian Communication Ability: Effective Visual Impairment: No Limitations Barrel Lapper Required: No Beliefs That Will Affect Care: None marital status: Current Living Situation: Spouse Current Living Situation Comment: 1 level rental home, no stairs, ramp to enter home and handicap accessible Other Information That Helps Us Care for You: No Feels Safe at Home: Yes Safety Concerns: Feels Safe At This Time Assistive Devices: Contacts and CPAP Review of Systems Review of Systems: All systems reviewed & are unremarkable except as noted in HPI & below Physical Exam Physical Exam: Constitutional: WD/WN, M, hard of hearing, vitals as above, NAD, sitting up in bed, pleasant, conversing easily Head: Normocephalic, Atraumatic Eyes: PERRL, conjunctivae normal, anicteric sclerae ENMT: external ear and nose normal, oropharynx normal Neck: trachea midline, no thyromegaly normal visual inspection Respiratory: normal respiratory effort, lungs clear to auscultation, no wheeze, rales, rhonchi. Normal insp/exp effort, no accessory muscle use Cardiovascular: RRR, no murmur, no edema., chronic b/l venous stasis changes Vessels: no JVD or carotid bruit Chest: normal inspection of chest pacer site noted Abdomen: normal bowel sounds, soft, nontender, no hepatosplenomegaly Musculoskeletal: no cyanosis or clubbing, extremities motor strength 5/5 Skin: no rashes, warm and dry normal turgor, L knee with mild excoriation but not redness Neurologic: PERRL, EOMI, accommodation nl, no face palsy, no dysarthria CN's II-XI intact bilaterally and moves all extremities Psychiatric: A+Ox3, euthymic affect Lymphatic: no cervical or axillary lymphadenopathy : deferred Results & Data Results & Data Vital Signs (Past 12 Hours) Vital Signs Temp Pulse Resp BP Pulse Ox O2 Del Method 03/17/23 14:50 97 Room Air 03/17/23 14:00 73 03/17/23 13:41 36.9 C 88 15 154/110 H 93 Room Air Diagnostic Findings Cervical Spine CT 03/17/23 14:30 CT cervical spine wo con CLINICAL HISTORY: 78 years-old Male with fall, worsening amb dysfunction, coumadin. Acute head and neck injury status post fall COMPARISON: Head CT of same day, CT cervical spine 06/27/2022 TECHNIQUE: Multiple axial CT images of the cervical spine were obtained without contrast. A dose lowering technique was utilized adhering to the principles of ALARA. FINDINGS: The visualized appearance of the bones. Multilevel changes are redemonstrated including severe disc space narrowing at C5-C6 and C6/C7 with moderate multilevel spondylotic spurring and moderate to severe facet arthrosis. Mild T2 and T3 superior endplate compression deformities without retropulsion appear chronic. No acute cervical spine fracture or subluxation identified. The cervical soft tissues appear unremarkable. Right mastoidectomy changes. The visualized lung apices appear clear. IMPRESSION: No acute cervical spine fracture or subluxation identified. ACT 112: Negative or not required by law. The above report was generated using voice recognition software. It may contain grammatical, syntax or spelling errors. Electronically signed by: Irwin Hu M.D. 03/17/2023 4:[address] 03/17/23 14:30 CT head/brain wo con CLINICAL HISTORY: fall, worsening amb dysfunction, coumadin Technique: Contiguous axial CT images of the head were acquired from the base of the skull to the vertex without intravenous contrast administration. Images were viewed in brain, subdural and bone windows. Automated dose lowering techniques and/or adjustment according to patient size were utilized for this exam. Comparison: Comparison is made to CT head 06/27/2022 Findings: Areas of decreased attenuation are present in the periventricular and subcortical white matter bilaterally consistent with small vessel ischemic disease. Generalized cerebral atrophy with commensurate enlargement of the ventricles, sulci, and cisterns is also present. There is no acute intracranial hemorrhage or evidence of acute territorial infarction. No shift of the midline structures, mass effect, or extra-axial abnormalities are shown. Atherosclerotic calcifications are present in the intracranial segments of the internal carotid arteries. Soft tissue thickening seen in the sinuses most prominently in the right frontal sinuses and ethmoid air cells. The orbits appear normal. There are no acute fractures of the calvaria or scalp swelling. Impression: No acute intracranial hemorrhage, no evidence of acute territorial infarction or other acute intracranial disease process. ACT 112: Negative or not required by law. Electronically signed by: Blas Naqvi M.D. 03/17/2023 3:[address] 03/17/23 14:30 CT SCAN OF THE LUMBAR SPINE WITHOUT IV CONTRAST CLINICAL HISTORY: Fall. Ambulatory dysfunction. COMPARISON STUDY: CT scan of the lumbar spine dated 11/15/2020. MRI of the lumbar spine dated 12/30/2022. TECHNIQUE: CT scan of the lumbar spine was performed from the lower thoracic spine to the sacrum. Images are reviewed in the axial, sagittal, and coronal planes. IV contrast was not administered for this examination. A dose lowering technique was utilized adhering to the principles of ALARA. FINDINGS: The skeletal structures are osteopenic. There is no evidence of acute fracture or malalignment involving the lumbar spine. A subacute-appearing burst type compression fracture is seen involving the body of L1. Loss of height is similar to the 12/30/2022 MRI examination. There are minimally retropulsed fragments, with no significant acquired compromise of the central canal. Vertebral body height is otherwise maintained throughout the lumbar spine. There is minimal anterolisthesis of L4-L5. Alignment is otherwise preserved. Small anterior and lateral marginal osteophytes are seen throughout. The transverse and spinous processes appear intact. There is no spondylolysis. No lytic or blastic lesion is seen. There is mild multilevel degenerative disc space narrowing throughout the lumbar spine. There is no CT evidence of high-grade central canal stenosis. Paravertebral edema is seen at L1. The visualized sacrum and bony pelvis appear intact. An IVC filter is noted within a left pelvic vein anterior to the sacrum. This is unchanged from previous. There is fatty atrophy of the paraspinous musculature. There is moderate atherosclerotic calcification of the abdominal aorta which is normal in caliber. IMPRESSION: 1. There is no evidence of acute fracture or malalignment involving the lumbar spine. 2. A subacute burst type compression fracture of L1 is again noted. Loss of height is similar to the 12/30/2022 MRI. 3. Osteopenia and degenerative change as above. 4. An IVC filter is again seen within a left pelvic vein anterior to the sacrum. This is unchanged in position from previous. ACT 112: Negative or not required by law. Dictated: 03/17/2023 3:34 PM Transcribed: 03/17/2023 3:51 PM Tere [id number] EMERYOzzie [id number] Electronically signed by: Kel Brooks M.D. 03/17/2023 4:00 PM Medications Administered Medication List Discontinued Medications Sodium Chloride (Nss) 1,000 mls @ 999 mls/hr IV .Q1H1M KIAN Stop: 03/17/23 15:30 Last Admin: 03/17/23 14:44 Dose: 999 mls/hr Documented By: JEREMIAH ECG Rate (beats per minute): 64 Additional Comments: atrial paced rythm with prolonged av conduction, qtc 497ms, bifascicular block unchanged COVID-19 Results Results COVID-19 Adm Lab Results: RBC 4.03 M/uL (4.70-6.10) L 03/17/23 WBC 7.61 K/ul (4.8-10.8) 03/17/23 Hgb 13.4 g/dl (14.0-18.0) L 03/17/23 Hct 40.5 % (42.0-52.0) L 03/17/23 Plt Count 216 K/uL (130-400) 03/17/23 Neutrophils (%) (Auto) 60.4 % 03/17/23 Lymphocytes (%) (Auto) 17.0 % 03/17/23 Monocytes # (Auto) 1.53 K/uL (0.11-0.59) H 03/17/23 Eosinophils # (Auto) 0.16 K/uL (0.00-0.50) 03/17/23 Immature Granulocyte % (Auto) 0.3 % 03/17/23 Neutrophils # (Auto) 4.60 K/uL (1.40-6.50) 03/17/23 Lymphocytes # (Auto) 1.29 K/uL (1.20-3.40) 03/17/23 Monocytes # (Auto) 1.53 K/uL (0.11-0.59) H 03/17/23 Eosinophils # (Auto) 0.16 K/uL (0.00-0.50) 03/17/23 Basophils # (Auto) 0.01 K/uL (0.00-0.20) 03/17/23 Immature Granulocyte # (Auto) 0.02 K/uL (0.01-0.20) 3 Na 139 mmol/L (136-145) 03/17/23 K 3.9 mmol/L (3.5-5.1) 03/17/23 Cl 106 mmol/L (98-107) 03/17/23 CO2 28 mmol/L (21-32) 03/17/23 Anion Gap 5 (3-11) 03/17/23 BUN 17 mg/dl (6-23) 03/17/23 Creatinine 1.03 mg/dl (0.6-1.4) 03/17/23 BUN/Creatinine Ratio 16.5 (10-20) 03/17/23 Glucose Level 104 mg/dl (70-99(Fasting)) H 03/17/23 Ca 9.8 mg/dl (8.6-10.3) 03/17/23 Total Bilirubin 1.3 mg/dl (0.2-1.0) H 03/17/23 AST/SGOT 25 U/L (13-39) 03/17/23 ALT/SGPT 17 U/L (7-52) 03/17/23 Alkaline Phosphatase 105 U/L (34-104) H 03/17/23 Total Protein 7.9 gm/dl (6.0-8.3) 03/17/23 Albumin 4.2 gm/dl (3.4-5.0) 03/17/23 Globulin 3.7 gm/dl (2.5-4.0) 03/17/23 Albumin/Globulin Ratio 1.1 (0.9-2) 03/17/23 INR 2.4 (0.9-1.1) H 03/17/23 Code Status & VTE Plan Code Status DNR/DNI Supervising Physician Co-Signing Physician Notes Pt seen and examined by me, care coordinated with Jesus Barth PA-C, pls refer to her note above for further detail. Pt is a 78 yo F w/ hx of vascular dementia, HTN, HLD, ARIS, moderate persistent asthma, PAF on warfarin, sick sinus syndrome, permanent pacemaker in place, chronic DVT, GERD, chronic ITP and CKD stage III presents to ED secondary to recent fall and inability to care for self at home. He states he falls due to, "losing his balance, knee pain and just general weakness." Of significance patient had a significant fall at the end of November where he was diagnosed with a L1 compression fracture. He had MRI in December. He was seen and evaluated by orthopedic spine in [place] who initially was considering kyphoplasty but due to pain improvement recommend conservative measures. Patient fell this morning and was unable to get patient up. She states due to his persistent and worsening chronic bilateral knee pain that he is unable to push off his legs and get him up. He also follows neurology due to idiopathic peripheral neuropathy. He has had bilateral knee replacements back in 2009 and a right knee exchange in [address] Andrews. He was to undergo a bone scan today due to persistent pain and normal x-rays, but unfortunately ended up in the ER. He denies bowel or bladder incontinence. In ED patient underwent repeat lumbar spine CT which again shows a possible subacute L1 burst fracture which appears similar to that of MRI from December 2022. Head CT and cervical spine CT without acute abnormality. Currently pt is laying in bed in [facility]. Pt's at the bedside and provides most of the hx. Pt is awake alert and answers simple questions appropriately. Lungs are clear to auscultation. Heart sounds regular. Abdomen soft nontender nondistended. Patient is moving extremities. There is no lower extremity edema noted. Skin is warm and dry. We will consult with orthopedics regarding knee pain and L1 compression fracture/back pain. Patient will also needs PT OT, possible rehab. MD Maren
[2023-03-17 17:31] LABS: INR 2.4 (0.9-1.1); Prothrombin Time 24.6 Seconds (9.0-12.0)
[2023-03-17] MEDS ORDERED: WARFARIN SOD 2.5 MG TAB PO SCH (17:47)
[2023-03-17] MEDS ORDERED: ALUMINUM/MAGNESIUM SUSP 30 ML UDC PO PRN (17:47)
[2023-03-17] MEDS ORDERED: ACETAMINOPHEN 325 MG TAB PO PRN (17:47)
[2023-03-17] MEDS ORDERED: traMADol HCL 50 MG TABLET PO PRN (17:47)
[2023-03-17] MEDS ORDERED: MAGNESIUM HYDROXIDE SUSP 30 ML UDC PO PRN (17:47)
[2023-03-17] MEDS ORDERED: ONDANSETRON INJ 2 MG/ML 2 ML VIAL IV PRN (17:47)
[2023-03-17] MEDS ORDERED: POLYETHYLENE (MIRALAX) 17 GM PACK PO PRN (17:47)
[2023-03-17] MEDS ORDERED: ALBUTEROL HFA 8 GM INHALER INH PRN (17:47)
[2023-03-17] MEDS ORDERED: INFLUENZA VACCINE HIGH-DOSE (HD-IIV4) PF 65+ 0.7mL SYR IM ONE (18:20)
[2023-03-17] MEDS: SOTALOL HCL 80 MG TAB PO SCH (20:08)
[2023-03-17] MEDS: DICLOFENAC SOD 1% GEL 100 GM TUBE EXT SCH (20:08)
[2023-03-17] MEDS: MEMANTINE HCL 10 MG TAB PO SCH (20:09)
[2023-03-17] MEDS: SERTRALINE HCL 50 MG TABLET PO SCH (20:09)
[2023-03-17] MEDS: ATORVASTATIN 40 MG TAB PO SCH (20:09)
[2023-03-17] MEDS: ACETAMINOPHEN 325 MG TAB PO SCH (21:20)
[2023-03-18] MEDS: ACETAMINOPHEN 325 MG TAB PO SCH ×3 (05:41→21:59)
[2023-03-18 07:27] LABS: Hematocrit (blood only) 35.8 % (42.0-52.0); Mean Corpuscular Hemoglobin 33.2 pg (25.0-34.0); Mean Corpuscular Hgb Conc 33.5 g/dL (32.0-36.0); Mean Corpuscular Volume 99.2 fL (80.0-100.0); Mean Platelet Volume 12.1 fL (9.4-12.4); Platelet Count 203 K/uL (130-400); RDW Coefficient of Variation 13.9 % (11.5-14.5); RDW Standard Deviation 50.5 fL (36.4-46.3); Red Blood Count 3.61 M/uL (4.70-6.10); White Blood Count 6.65 K/ul (4.8-10.8)
[2023-03-18 07:52] LABS: BUN Creatinine Ratio 15.1 (10-20); Calcium 9.4 mg/dl (8.6-10.3); Creatinine Clr Calc Pharmacy 74.1 ml/min; Est GFR (African American) 78.6 ml/min; Est GFR (Non-African American) 67.8 ml/min; Magnesium 2.1 mg/dl (1.7-2.4); Potassium 3.9 mmol/L (3.5-5.1)
[2023-03-18 08:03] LABS: INR 2.1 (0.9-1.1); Prothrombin Time 21.6 Seconds (9.0-12.0)
[2023-03-18] MEDS: SOTALOL HCL 80 MG TAB PO SCH ×2 (08:49→20:23)
[2023-03-18] MEDS: FLUTICASONE/VILANTEROL 100/25MCG 14 PUFFS/INHALER INH SCH (08:50)
[2023-03-18] MEDS: MAGNESIUM OXIDE 400 MG TAB PO SCH (08:50)
[2023-03-18] MEDS: CETIRIZINE HCL 10 MG TABLET PO SCH (08:51)
[2023-03-18] MEDS: TAMSULOSIN HCL 0.4 MG CAP PO SCH (08:51)
[2023-03-18] MEDS: FERROUS SULFATE 325 MG TAB PO SCH (08:51)
[2023-03-18] MEDS: ASPIRIN 81 MG ECTAB PO SCH (08:52)
[2023-03-18] MEDS: MULTIVITAMIN TAB PO SCH (08:52)
[2023-03-18] MEDS: FINASTERIDE 5 MG TAB PO SCH (08:52)
[2023-03-18] MEDS: OXYBUTYNIN CHLORIDE XL 5 MG TABCR PO SCH (08:52)
[2023-03-18] MEDS: MEMANTINE HCL 10 MG TAB PO SCH ×2 (08:53→20:19)
[2023-03-18] MEDS: DICLOFENAC SOD 1% GEL 100 GM TUBE EXT SCH ×4 (08:53→20:18)
[2023-03-18] MEDS: FLUTICASONE PROPIONATE NA SPR 16 GM BTL SCH (08:53)
[2023-03-18] MEDS ORDERED: NON-FORMULARY MEDICATION (Mv-Mn-Om3-Dha-Epa-Fish-Lut-Zea [Ocuvite Adult 50 Plus] 250 mg (9 PO SCH (09:00)
--- NOTE | 2023-03-18 12:51 | Electrocardiogram Report ---
Test Reason : Blood Pressure : / mmHG Vent. Rate : 064 BPM Atrial Rate : 064 BPM P-R Int : 246 ms QRS Dur : 144 ms QT Int : 482 ms P-R-T Axes : 000 -58 010 degrees QTc Int : 497 ms Atrial-paced rhythm with prolonged AV conduction Right bundle branch block Left anterior fascicular block Bifascicular block Abnormal ECG When compared with ECG of 15-NOV-2020 22:15, No significant change was found Confirmed by Rafael Cueto ([id number]) on 03/18/2023 12:50:40 PM Referred By: REFERRED SELF Confirmed By:Rafael Cueto
--- NOTE | 2023-03-18 12:52 | Orthopedic Consultation ---
Date of Service March 18, 2023 History of Present Illness Reason for Consultation: . Chronic low back pain Requesting Physician: . Attending Physician: Wild Garza MD . 78-year-old gentleman who was admitted for a fall and difficulties ambulating, has a significant past medical history of vascular dementia, HTN, HLD, ARIS, moderate persistent asthma, PAF on warfarin, sick sinus syndrome, permanent pacemaker in place, chronic DVT, GERD, chronic ITP and CKD stage III presents to ED secondary to recent fall and inability to care for self at home. In talking with the patient he relates he has had chronic low back pain, he did have an L1 fracture in the past which was treated at [facility]. He relates to me that though he has chronic low back pain is most significant pain is in the knees bilaterally, he does see Dr. Andrews for this and has an upcoming appointment. Exam reveals him to indicate an area at the lumbosacral junction, but nontender to palpation. He had appropriate strength for EHL ankle plantar dorsiflexion knee flexion extension and hip flexion in the lower extremities. Negative straight leg raise bilaterally. Some pain was noted with range of motion of both knees specially on the left side. Review of CT scan images of the lumbar spine from March 17, 2023 was reviewed, this my separate interpretation, this reveals some limited degenerative changes, evidence of a prior superior endplate compression fracture of L1, and review of previous studies this appears to be chronic in nature. Review of lumbar MRI images from December 30, 2022 was performed, this my separate interpretation, this reveals some multilevel degenerative changes but no significant areas of either canal or foraminal stenosis, the findings as noted at L1, some facet arthropathy is noted. CT SCAN OF THE LUMBAR SPINE WITHOUT IV CONTRAST: March 17, 2023 CLINICAL HISTORY: Fall. Ambulatory dysfunction. COMPARISON STUDY: CT scan of the lumbar spine dated 11/15/2020. MRI of the lumbar spine dated 12/30/2022. FINDINGS: The skeletal structures are osteopenic. There is no evidence of acute fracture or malalignment involving the lumbar spine. A subacute-appearing burst type compression fracture is seen involving the body of L1. Loss of height is similar to the 12/30/2022 MRI examination. There are minimally retropulsed fragments, with no significant acquired compromise of the central canal. Vertebral body height is otherwise maintained throughout the lumbar spine. There is minimal anterolisthesis of L4-L5. Alignment is otherwise preserved. Small anterior and lateral marginal osteophytes are seen throughout. The transverse and spinous processes appear intact. There is no spondylolysis. No lytic or blastic lesion is seen. There is mild multilevel degenerative disc space narrowing throughout the lumbar spine. There is no CT evidence of high-grade central canal stenosis. Paravertebral edema is seen at L1. The visualized sacrum and bony pelvis appear intact. An IVC filter is noted within a left pelvic vein anterior to the sacrum. This is unchanged from previous. There is fatty atrophy of the paraspinous musculature. There is moderate atherosclerotic calcification of the abdominal aorta which is normal in caliber. IMPRESSION: 1. There is no evidence of acute fracture or malalignment involving the lumbar spine. 2. A subacute burst type compression fracture of L1 is again noted. Loss of height is similar to the 12/30/2022 MRI. 3. Osteopenia and degenerative change as above. 4. An IVC filter is again seen within a left pelvic vein anterior to the sacrum. This is unchanged in position from previous. Impression: Chronic low back pain with evidence of prior treated L1 compression fracture, no significant stenosis or evidence of any instability or new fracture on current imaging studies. Recommendations: Mobilize with physical therapy, appropriate medication management, placement issue. The patient does not have anything that would be of an operative nature, appropriate management of the patient's symptoms, as certainly he feels the most significant issue is his bilateral osteoarthritic knees. Allergies Allergy/AdvReac Type Severity Reaction Status Date / Time adhesive Allergy Intermediate SKIN Verified 03/17/23 16:20 IRRITATION WITH TAPE latex Allergy Intermediate Rash Verified 03/17/23 16:20 Home Medications Medication Instructions Recorded Confirmed Type atorvastatin 40 mg tablet 80 mg PO QPM #0 tabs 12/03/15 03/17/23 History fluticasone propionate 50 2 spray intranasal DAILY ##0 12/03/15 03/17/23 History mcg/actuation nasal spray,suspension cetirizine 10 mg tablet (Zyrtec) 10 mg PO QAM #0 tabs 08/16/17 03/17/23 History ferrous sulfate 325 mg (65 mg 325 mg PO QAM ##0 08/16/17 03/17/23 History iron) tablet magnesium 250 mg tablet 250 mg PO QAM ##0 08/16/17 03/17/23 History sertraline 100 mg tablet 150 mg PO QPM #0 tabs 08/16/17 03/17/23 History warfarin 5 mg tablet 2.5 mg PO SUTUTH@1600 ##0 08/16/17 03/17/23 History sotalol 80 mg tablet 80 mg PO BID 90 days #180 tabs 11/07/17 03/17/23 History sqqmdpftqnjc-rdm-fmtkj acid-vit 1 tab PO QAM 02/10/18 03/17/23 History K-lycop 400 mcg-20 mcg-370 mcg tablet (Men's 50 Plus Daily Formula) ofloxacin 0.3 % ear drops 4 drp otic (ear) WK 02/10/18 03/17/23 History walker #1 ea 07/28/20 02/25/23 Rx aspirin 81 mg chewable tablet 81 mg PO DAILY 08/23/22 03/17/23 History memantine 10 mg tablet 10 mg PO BID #180 tabs 09/13/22 03/17/23 Rx dutasteride 0.5 mg capsule 0.5 mg PO DAILY #90 caps 09/23/22 03/17/23 Rx solifenacin 10 mg tablet (Vesicare) 10 mg PO DAILY #90 tabs 09/23/22 03/17/23 Rx tamsulosin 0.4 mg capsule 0.4 mg PO DAILY #90 caps 09/23/22 03/17/23 Rx albuterol sulfate 90 mcg/actuation 2 puff inhalation Q6H PRN 03/17/23 03/17/23 History aerosol inhaler Shortness Of Breath Or Wheezing fluticasone propionate 230 2 puff inhalation AMPM 03/17/23 03/17/23 History mcg-salmeterol 21 mcg/actuation HFA inhaler (Advair HFA) [id number] 250 mg-dha 90 1 cap PO QAM 03/17/23 03/17/23 History mg-epa 160 aj-qnma-exsw-zeax capsule (Ocuvite Adult 50 Plus) warfarin 5 mg tablet 5 mg PO MOWEFRSA@1600 03/17/23 03/17/23 History zafirlukast 20 mg tablet 10 mg PO BID 03/17/23 03/17/23 History Past Med/Surg History Medical History Benign prostatic hyperplasia with urinary obstruction Dementia Adjustment disorder with depressed mood Chronic cerebral ischemia Idiopathic peripheral neuropathy Sensory ataxia Thrombocytopenia CHRONIC BASELINE LOW 100'S Obesity Depression PAF (paroxysmal atrial fibrillation) Bifascicular bundle branch block CHRONIC DATING BACK TO AT LEAST 2017 Neuropathy BILATERAL LEGS/FEET Anemia Dementia "MILD" BPH (benign prostatic hyperplasia) Hearing deficit Hyperlipidemia Hypertension Deep vein thrombosis LLE DVT 1995; IVC FILTER PLACED Pacemaker IMPLANTED 09/14/17 2/2 [employer]ACHYBR[employer]Y SYNDROME/SSS [employer]; LAST CHECKED 02/16/18 Transient ischemic attack (TIA) 2009 Pulmonary embolism 2016- ON WARFARIN Afib Surgical History Hx of hemorrhoidectomy History of permanent cardiac pacemaker placement IMPLANTED 09/14/17 History of elbow surgery RIGHT ELBOW SURGERY 11/2017 S/P MECHANICAL FALL H/O foot surgery LEFT S/P IVC filter 1995 History of total knee replacement BILATERAL History of cystoscopy History of colonoscopy History of herniorrhaphy INCISIONAL HERNIA REPAIR History of cholecystectomy OPEN History of nasal septoplasty History of cardiac cath 2008= NO STENTS Family History Father COPD (chronic obstructive pulmonary disease) Hypertension Mother Hodgkin lymphoma Social History Smoking Status: Former smoker Cigarettes Per Day: QUIT 45 YEARS AGO; Second Hand Exposure: No; Do You Dip or Chew Tobacco: No; Hx Alcohol Use: No Hx Substance Use: No Preferred Language: [place] Citizen Communication Ability: Effective Visual Impairment: No Limitations Calculation Clerk Required: No Beliefs That Will Affect Care: None marital status: Current Living Situation: Spouse Current Living Situation Comment: 1 level rental home, no stairs, ramp to enter home and handicap accessible Other Information That Helps Us Care for You: No Feels Safe at Home: Yes Safety Concerns: Feels Safe At This Time Assistive Devices: Walker Review of Systems All systems reviewed & are unremarkable except as noted in HPI & below. Physical Exam . Results & Data Results & Data Laboratory Results . Diagnostic Findings . PG Care Time/CCT Total # of Minutes Spent Total Time Spent with Patient: Total time spent is greater than 50% in coordination of care (as documented) at patient's floor/unit and/or counseling patient: Coding Level of Care Code 18264 IN/OBS CONSULT LVL 3,45M
--- NOTE | 2023-03-18 15:20 | Hospitalist Progress Note ---
Date of Service March 18, 2023 Assessment & Plan (1) Ambulatory dysfunction: (2) Frequent falls: (3) Chronic knee pain after total replacement of both knee joints: (4) Compression fracture of L1 lumbar vertebra: (5) Idiopathic peripheral neuropathy: (6) Sensory ataxia: (7) Chronic cerebral ischemia: (8) Vascular dementia: (9) PAF (paroxysmal atrial fibrillation): Plan This is a 78-year-old male who has a significant past medical history of vascular dementia, HTN, HLD, ARIS, moderate persistent asthma, PAF on warfarin, sick sinus syndrome, permanent pacemaker in place, chronic DVT, GERD, chronic ITP and CKD stage III presents to ED secondary to recent fall and inability to care for self at home. Ambulatory dysfunction Frequent falls Chronic knee pain after total replacement of both knee joints, and right knee exchange Subacute compression fracture of L1 with 30% vertebral volume loss Idiopathic peripheral neuropathy with sensory ataxia Admited to medical floor Repeat lumbar spine MRI, pacemaker is MRI compatible to rule out lumbar spine etiology progressing lower extremity weakness Suspect lower extremity weakness as result of chronic bilateral knee pain as well as peripheral neuropathy and sensory ataxia Orthopedic surgery evaluated - Dr. Walker recommends mobilizing with PT, appropriate medication management, possible placement. Does not have anything that would be of an operative nature PT/OT consulted Schedule Tylenol, ice 3 times daily, Voltaren gel and as needed tramadol PAF TBS status post PPM Continue sotalol and warfarin therapy INR is therapeutic Outpatient regimen is 1.25 mg Tuesday, , Tuesday and 2.5 mg all other days ARIS CPAP at bedtime Moderate persistent asthma No acute exacerbation Chronic, stable Continue inhalers CKD stage III Chronic, stable Baseline creatinine 1-1.2 Follows [facility], Dr. Willoughby History of DVT/PE On warfarin [place] filter in place Vascular dementia Continue supportive care Namenda Chronic, stable, A&Ox3 at baseline, difficulty with short term DNR/DNI PCP: [facility] Dispo: admit to med/surg, PT/OT, Pt likely to need rehab Pt was seen and examined in collaboration with Dr. Garza, Admission and Anticipated Discharge Date Admission Date: March 17, 2023 Supervising Physician Co-Signing Physician Notes Patient seen and examined independently. Discussed with above provider. Await orthopedic input regarding knee pain. Subjective Seen and examined in 353-2 in follow up for frequent falls, ambulatory dysfunction. Currently denies any knee pain but states it is worse with ambulation. Has peripheral neuropathy at baseline that leads to difficulty with ambulating, even with walker. No F/C, lightheadedness, CP, SOB, N/V, abd pain, dysuria, diarrhea or constipation. Review of Systems Review of Systems: At least ten systems reviewed and negative except as noted in the HPI. Physical Exam Physical Exam: Gen: WD/WN, NAD, sitting in bedside chair, A&Ox3 HEENT: Normocephalic, atraumatic, conjunctivae moist, sclerae anicteric, mucous membranes moist Lung: Clear to Auscultation bilaterally, no wheezes/rales/rhonchi Heart: Regular rate, regular rhythm, no murmurs, rubs, or gallops Abdomen: Soft, NT, ND +BS x 4 Extremities: no edema Skin: Warm, no rash Results & Data Results & Data Vital Signs (Past 12 Hours) Vital Signs Temp Pulse Resp BP Pulse Ox O2 Del Method 03/18/23 07:35 36.7 C 69 16 131/77 93 Room Air Laboratory Results Short CBC 03/17/23 03/18/23 Range/Units 14:40 07:08 WBC 7.61 6.65 (4.8-10.8) K/ul Hgb 13.4 L 12.0 L (14.0-18.0) g/dl Hct 40.5 L 35.8 L (42.0-52.0) % Plt Count 216 203 (130-400) K/uL BMP 03/17/23 03/18/23 14:40 07:08 Sodium 139 139 Potassium 3.9 3.9 Chloride 106 108 H Carbon Dioxide 28 26 BUN 17 16 Creatinine 1.03 1.06 Glucose 104 H 122 H Calcium 9.8 9.4 Liver Function 03/17/23 Range/Units 14:40 Total Bilirubin 1.3 H (0.2-1.0) mg/dl AST 25 (13-39) U/L ALT 17 (7-52) U/L Alkaline Phosphatase 105 H (34-104) U/L Albumin 4.2 (3.4-5.0) gm/dl Urine 03/17/23 Range/Units 14:48 Urine Color Yellow Urine Appearance Cloudy A (Clear) Urine pH 7.5 (4.5-7.5) Ur Specific [place] 1.013 (1.000-1.030) Urine Protein Negative (Negative) Urine Glucose (UA) Negative (Negative) Diagnostic Findings Cervical Spine CT 03/17/23 14:30 CT cervical spine wo con CLINICAL HISTORY: 78 years-old Male with fall, worsening amb dysfunction, coumadin. Acute head and neck injury status post fall COMPARISON: Head CT of same day, CT cervical spine 06/27/2022 TECHNIQUE: Multiple axial CT images of the cervical spine were obtained without contrast. A dose lowering technique was utilized adhering to the principles of ALARA. FINDINGS: The visualized appearance of the bones. Multilevel changes are redemonstrated including severe disc space narrowing at C5-C6 and C6/C7 with moderate multilevel spondylotic spurring and moderate to severe facet arthrosis. Mild T2 and T3 superior endplate compression deformities without retropulsion appear chronic. No acute cervical spine fracture or subluxation identified. The cervical soft tissues appear unremarkable. Right mastoidectomy changes. The visualized lung apices appear clear. IMPRESSION: No acute cervical spine fracture or subluxation identified. ACT 112: Negative or not required by law. The above report was generated using voice recognition software. It may contain grammatical, syntax or spelling errors. Electronically signed by: Irwin Hu M.D. 03/17/2023 4:[address] 03/17/23 14:30 CT head/brain wo con CLINICAL HISTORY: fall, worsening amb dysfunction, coumadin Technique: Contiguous axial CT images of the head were acquired from the base of the skull to the vertex without intravenous contrast administration. Images were viewed in brain, subdural and bone windows. Automated dose lowering techniques and/or adjustment according to patient size were utilized for this exam. Comparison: Comparison is made to CT head 06/27/2022 Findings: Areas of decreased attenuation are present in the periventricular and subcortical white matter bilaterally consistent with small vessel ischemic disease. Generalized cerebral atrophy with commensurate enlargement of the ventricles, sulci, and cisterns is also present. There is no acute intracranial hemorrhage or evidence of acute territorial infarction. No shift of the midline structures, mass effect, or extra-axial abnormalities are shown. Atherosclerotic calcifications are present in the intracranial segments of the internal carotid arteries. Soft tissue thickening seen in the sinuses most prominently in the right frontal sinuses and ethmoid air cells. The orbits appear normal. There are no acute fractures of the calvaria or scalp swelling. Impression: No acute intracranial hemorrhage, no evidence of acute territorial infarction or other acute intracranial disease process. ACT 112: Negative or not required by law. Electronically signed by: Blas Naqvi M.D. 03/17/2023 3:[address] 03/17/23 14:30 CT SCAN OF THE LUMBAR SPINE WITHOUT IV CONTRAST CLINICAL HISTORY: Fall. Ambulatory dysfunction. COMPARISON STUDY: CT scan of the lumbar spine dated 11/15/2020. MRI of the lumbar spine dated 12/30/2022. TECHNIQUE: CT scan of the lumbar spine was performed from the lower thoracic sp ine to the sacrum. Images are reviewed in the axial, sagittal, and coronal planes. IV contrast was not administered for this examination. A dose lowering technique was utilized adhering to the principles of ALARA. FINDINGS: The skeletal structures are osteopenic. There is no evidence of acute fracture or malalignment involving the lumbar spine. A subacute-appearing burst type compression fracture is seen involving the body of L1. Loss of height is similar to the 12/30/2022 MRI examination. There are minimally retropulsed fragments, with no significant acquired compromise of the central canal. Vertebral body height is otherwise maintained throughout the lumbar spine. There is minimal anterolisthesis of L4-L5. Alignment is otherwise preserved. Small anterior and lateral marginal osteophytes are seen throughout. The transverse and spinous processes appear intact. There is no spondylolysis. No lytic or blastic lesion is seen. There is mild multilevel degenerative disc space narrowing throughout the lumbar spine. There is no CT evidence of high-grade central canal stenosis. Paravertebral edema is seen at L1. The visualized sacrum and bony pelvis appear intact. An IVC filter is noted within a left pelvic vein anterior to the sacrum. This is unchanged from previous. There is fatty atrophy of the paraspinous musculature. There is moderate atherosclerotic calcification of the abdominal aorta which is normal in caliber. IMPRESSION: 1. There is no evidence of acute fracture or malalignment involving the lumbar spine. 2. A subacute burst type compression fracture of L1 is again noted. Loss of height is similar to the 12/30/2022 MRI. 3. Osteopenia and degenerative change as above. 4. An IVC filter is again seen within a left pelvic vein anterior to the sacrum. This is unchanged in position from previous. ACT 112: Negative or not required by law. Dictated: 03/17/2023 3:34 PM Transcribed: 03/17/2023 3:51 PM Tere [id number] [id number] Electronically signed by: Kel Brooks M.D. 03/17/2023 4:00 PM
[2023-03-18] MEDS: WARFARIN SOD 5 MG TAB PO SCH (17:03)
[2023-03-18] MEDS: ZAFIRLUKAST PO SCH (20:19)
[2023-03-18] MEDS: SERTRALINE HCL 50 MG TABLET PO SCH (20:19)
[2023-03-18] MEDS: ATORVASTATIN 40 MG TAB PO SCH (20:19)
--- NOTE | 2023-03-18 23:51 | Magnetic Resonance Report ---
MRI OF THE LUMBAR SPINE WITHOUT IV CONTRAST CLINICAL HISTORY: Progressive weakness. L1 fracture. COMPARISON STUDY: CT scans of the lumbar spine dated 03/17/2023 and 11/15/2020. MRI of the lumbar spine dated 12/30/2022. TECHNIQUE: MRI of the lumbar spine was performed utilizing various T1 and T2-weighted sequences in th e axial and sagittal planes. IV contrast was not administered for this examination. The examination i s modestly degraded by motion artifact. FINDINGS: Lumbar spine: There is a late subacute burst type compression fracture of L1 with moderate loss of he ight. There is only faint residual marrow edema within the anterior aspect of the vertebral body. Los s of height has only modestly progressed as compared to the 12/30/2022 examination. Incompletely unite d fragment were better assessed on yesterday's CT scan. There is minimal retropulsion of fragments. N o acute fracture is seen. Vertebral body height is otherwise maintained throughout the lumbar spine. Alignment is preserved. There is mild hyperlordosis. Anterior and lateral marginal osteophytes are se en throughout. The transverse and spinous processes appear intact. There is no evidence of spondyloly sis. No destructive bony lesion is seen. Chronic degenerative endplate change is noted at several lev els. There is no significant endplate edema. Intervertebral discs: Disc desiccation and loss of height is seen throughout the lumbar spine. Loss o f height is severe at T12-L1 and moderate at L3-L4 and L4-L5. Spinal cord: The visualized spinal cord is normal in morphology and signal intensity. The conus medul reza terminates at the level of T12. The nerve roots of the cauda equina are normal in morphology. T12-L1: There is broad-based posterior disc bulge which abuts the transiting nerve roots. The central canal is clear. The neural foramina appear patent. L1: Fibrous or retropulsed by up to 4 mm as seen on axial image #5. There is no significant central c anal stenosis. L1-L2: The central canal is clear. The neural foramina appear patent. L2-L3: There is minimal posterior disc bulge and hypertrophy of the ligamentum flavum. There is minim al central canal stenosis at this level with a minimum AP diameter of 8 mm. The neural foramina are p atent. L3-L4: There is broad-based posterior disc bulge which abuts the transiting nerve roots. No significa nt acquired compromise of the central canal is seen. Lateral disc bulges contribute to bilateral suba rticular stenosis, left greater than right. This may abut the exiting left L3 nerve root. Mild facet arthropathy is of no consequence. The neural foramina are patent. L4-L5: There is minimal posterior disc bulge. This abuts the transiting nerve roots. There is no sign ificant acquired compromise of the central canal. Lateral disc bulges contribute to bilateral subarti cular stenosis, left greater than right. This likely impinges on the exiting left L4 nerve root. In c onjunction with facet arthropathy, there is mild bilateral neural foraminal narrowing. L5-S1: The central canal and neural foramina are patent. Sacrum: The visualized sacrum is normal in morphology and signal intensity. Soft tissues: There is fatty atrophy of the paraspinous musculature. The bladder wall is thickened/tr abeculated indicating chronic outlet obstruction. The retroperitoneal structures are grossly unremark able but incompletely evaluated. IMPRESSION: 1. Late subacute burst type compression fracture of L1. There is only faint residual marrow edema. 2. There are minimally retropulsed fragments which do not contribute to significant central canal dhruv nosis. 3. Multilevel lumbosacral spondylosis as above. See discussion for detailed level by level analysis. 4. No acute fracture is seen and there is no destructive bone lesion identified. Dictated: 03/18/2023 8:06 PM Transcribed: 03/18/2023 11:31 PM Tere [id number] [id number] Electronically signed by: Kel Brooks M.D. 03/18/2023 11:49 PM
[2023-03-19] MEDS: ACETAMINOPHEN 325 MG TAB PO SCH ×3 (05:34→22:01)
[2023-03-19 08:23] LABS: Hematocrit (blood only) 37.8 % (42.0-52.0); Hemoglobin 12.3 g/dl (14.0-18.0); Mean Corpuscular Hemoglobin 32.7 pg (25.0-34.0); Mean Corpuscular Hgb Conc 32.5 g/dL (32.0-36.0); Mean Corpuscular Volume 100.5 fL (80.0-100.0); Mean Platelet Volume 12.6 fL (9.4-12.4); Platelet Count 205 K/uL (130-400); RDW Coefficient of Variation 13.7 % (11.5-14.5); RDW Standard Deviation 50.7 fL (36.4-46.3); Red Blood Count 3.76 M/uL (4.70-6.10); White Blood Count 4.96 K/ul (4.8-10.8)
[2023-03-19 08:45] LABS: BUN Creatinine Ratio 18.9 (10-20); Calcium 9.4 mg/dl (8.6-10.3); Creatinine Clr Calc Pharmacy 82.6 ml/min; Est GFR (African American) 89.8 ml/min; Est GFR (Non-African American) 77.4 ml/min
[2023-03-19 09:03] LABS: INR 2.4 (0.9-1.1); Prothrombin Time 25.1 Seconds (9.0-12.0)
[2023-03-19] MEDS: FINASTERIDE 5 MG TAB PO SCH (09:07)
[2023-03-19] MEDS: MULTIVITAMIN TAB PO SCH (09:07)
[2023-03-19] MEDS: FERROUS SULFATE 325 MG TAB PO SCH (09:07)
[2023-03-19] MEDS: MAGNESIUM OXIDE 400 MG TAB PO SCH (09:07)
[2023-03-19] MEDS: OXYBUTYNIN CHLORIDE XL 5 MG TABCR PO SCH (09:07)
[2023-03-19] MEDS: CETIRIZINE HCL 10 MG TABLET PO SCH (09:07)
[2023-03-19] MEDS: ASPIRIN 81 MG ECTAB PO SCH (09:07)
[2023-03-19] MEDS: TAMSULOSIN HCL 0.4 MG CAP PO SCH (09:07)
[2023-03-19] MEDS: FLUTICASONE PROPIONATE NA SPR 16 GM BTL SCH (09:08)
[2023-03-19] MEDS: FLUTICASONE/VILANTEROL 100/25MCG 14 PUFFS/INHALER INH SCH (09:08)
[2023-03-19] MEDS: MEMANTINE HCL 10 MG TAB PO SCH ×2 (09:09→20:41)
[2023-03-19] MEDS: SOTALOL HCL 80 MG TAB PO SCH ×2 (09:09→20:40)
[2023-03-19] MEDS: DICLOFENAC SOD 1% GEL 100 GM TUBE EXT SCH ×4 (09:09→20:42)
[2023-03-19] MEDS: ZAFIRLUKAST PO SCH ×2 (09:10→20:39)
--- NOTE | 2023-03-19 12:08 | Hospitalist Progress Note ---
Date of Service March 19, 2023 Assessment & Plan (1) Ambulatory dysfunction: (2) Frequent falls: (3) Chronic knee pain after total replacement of both knee joints: (4) Compression fracture of L1 lumbar vertebra: (5) Idiopathic peripheral neuropathy: (6) Sensory ataxia: (7) Chronic cerebral ischemia: (8) Vascular dementia: (9) PAF (paroxysmal atrial fibrillation): Plan This is a 78-year-old male who has a significant past medical history of vascular dementia, HTN, HLD, ARIS, moderate persistent asthma, PAF on warfarin, sick sinus syndrome, permanent pacemaker in place, chronic DVT, GERD, chronic ITP and CKD stage III presents to ED secondary to recent fall and inability to care for self at home. Ambulatory dysfunction Frequent falls Chronic knee pain after total replacement of both knee joints, and right knee exchange Subacute compression fracture of L1 with 30% vertebral volume loss Idiopathic peripheral neuropathy with sensory ataxia Patient presented from home with ambulatory dysfunction and frequent falls Lumbar CT and lumbar MRI personally reviewed; subacute burst type compression fracture of L1 present Suspect lower extremity weakness as result of chronic bilateral knee pain as well as peripheral neuropathy and sensory ataxia Orthopedic spine evaluated - Dr. Walker recommends mobilizing with PT, appropriate medication management, possible placement. Does not have anything that would be of an operative nature Awaiting evaluation by orthopedic surgery for bilateral knee pain. Right knee x-ray ordered PAF TBS status post PPM Continue sotalol and warfarin therapy INR is therapeutic Outpatient regimen is 1.25 mg Tuesday, , Tuesday and 2.5 mg all other days ARIS CPAP at bedtime Moderate persistent asthma No acute exacerbation Chronic, stable Continue inhalers CKD stage III Chronic, stable Baseline creatinine 1-1.2 Follows [facility] nephrologyDr. Willoughby History of DVT/PE On warfarin [place] filter in place Vascular dementia Continue supportive care Namenda Chronic, stable, A&Ox3 at baseline, difficulty with short term DNR/DNI PCP: Janaytertom Dispo: Patient has history of multiple falls. He is on warfarin for anticoagulation. Awaiting evaluation by orthopedic surgery. Patient and interested in rehab. Discussed with social work case manager. Repeat PT OT evaluation to be done on Tuesday as per case management. Please note the above document was generated using voice recognition software. It may contain grammatical, syntax or spelling errors. Any formal questions or concerns about the content, text or information contained within the body of this dictation should be directly addressed to the provider for clarification Admission and Anticipated Discharge Date Admission Date: March 17, 2023 Subjective Patient seen and examined at bedside. He is ambulating within the room with a walker Review of Systems Review of Systems: All systems reviewed & are unremarkable except as noted in Subjective Physical Exam Physical Exam: Gen: WD/WN, NAD, sitting in bedside chair, A&Ox3 HEENT: Normocephalic, atraumatic, conjunctivae moist, sclerae anicteric, mucous membranes moist Lung: Clear to Auscultation bilaterally, no wheezes/rales/rhonchi Heart: Regular rate, regular rhythm, no murmurs, rubs, or gallops Abdomen: Soft, NT, ND +BS x 4 Extremities: no edema Skin: Warm, no rash Results & Data Results & Data Vital Signs (Past 12 Hours) Vital Signs Temp Pulse Resp BP Pulse Ox O2 Del Method 03/19/23 07:30 36.5 C 69 16 109/71 93 Room Air Laboratory Results Laboratory Results WBC 4.96 K/ul (4.8-10.8) 03/19/23 07:48 RBC 3.76 M/uL (4.70-6.10) L 03/19/23 07:48 Hgb 12.3 g/dl (14.0-18.0) L 03/19/23 07:48 Hct 37.8 % (42.0-52.0) L 03/19/23 07:48 MCV 100.5 fL (80.0-100.0) H 03/19/23 07:48 MCH 32.7 pg (25.0-34.0) 03/19/23 07:48 MCHC 32.5 g/dL (32.0-36.0) 03/19/23 07:48 RDW Std Deviation 50.7 fL (36.4-46.3) H 03/19/23 07:48 RDW Coeff of Cat 13.7 % (11.5-14.5) 03/19/23 07:48 Plt Count 205 K/uL (130-400) 03/19/23 07:48 MPV 12.6 fL (9.4-12.4) H 03/19/23 07:48 Immature Gran % (Auto) 0.3 % 03/17/23 14:40 Neut % (Auto) 60.4 % 03/17/23 14:40 Lymph % (Auto) 17.0 % 03/17/23 14:40 Johnson % (Auto) 20.1 % 03/17/23 14:40 Eos % (Auto) 2.1 % 03/17/23 14:40 Baso % (Auto) 0.1 % 03/17/23 14:40 Neut # (Auto) 4.60 K/uL (1.40-6.50) 03/17/23 14:40 Lymph # (Auto) 1.29 K/uL (1.20-3.40) 03/17/23 14:40 Johnson # (Auto) 1.53 K/uL (0.11-0.59) H 03/17/23 14:40 Eos # (Auto) 0.16 K/uL (0.00-0.50) 03/17/23 14:40 Baso # (Auto) 0.01 K/uL (0.00-0.20) 03/17/23 14:40 Immature Gran # (Auto) 0.02 K/uL (0.01-0.20) 03/17/23 14:40 PT 25.1 Seconds (9.0-12.0) H 03/19/23 07:48 INR 2.4 (0.9-1.1) H 03/19/23 07:48 Sodium 140 mmol/L (136-145) 03/19/23 07:48 Potassium 4.0 mmol/L (3.5-5.1) 03/19/23 07:48 Chloride 110 mmol/L (98-107) H 03/19/23 07:48 Carbon Dioxide 25 mmol/L (21-32) 03/19/23 07:48 Anion Gap 5 (3-11) 03/19/23 07:48 BUN 18 mg/dl (6-23) 03/19/23 07:48 Creatinine 0.95 mg/dl (0.6-1.4) 03/19/23 07:48 Est Cr Clr Drug Dosing 82.6 ml/min 03/19/23 07:48 Est GFR ( Amer) 89.8 ml/min 03/19/23 07:48 Est GFR (Non-Af Amer) 77.4 ml/min 03/19/23 07:48 BUN/Creatinine Ratio 18.9 (10-20) 03/19/23 07:48 Glucose 128 mg/dl (70-99(Fasting)) H 03/19/23 07:48 Calcium 9.4 mg/dl (8.6-10.3) 03/19/23 07:48 Magnesium 2.1 mg/dl (1.7-2.4) 03/18/23 07:08 Total Bilirubin 1.3 mg/dl (0.2-1.0) H 03/17/23 14:40 AST 25 U/L (13-39) 03/17/23 14:40 ALT 17 U/L (7-52) 03/17/23 14:40 Alkaline Phosphatase 105 U/L (34-104) H 03/17/23 14:40 Total Protein 7.9 gm/dl (6.0-8.3) 03/17/23 14:40 Albumin 4.2 gm/dl (3.4-5.0) 03/17/23 14:40 Globulin 3.7 gm/dl (2.5-4.0) 03/17/23 14:40 Albumin/Globulin Ratio 1.1 (0.9-2) 03/17/23 14:40 TSH 2.156 uIu/ml (0.300-4.500) 03/17/23 14:40 Urine Color Yellow 03/17/23 14:48 Urine Appearance Cloudy (Clear) A 03/17/23 14:48 Urine pH 7.5 (4.5-7.5) 03/17/23 14:48 Ur Specific [place] 1.013 (1.000-1.030) 03/17/23 14:48 Urine Protein Negative (Negative) 03/17/23 14:48 Urine Glucose (UA) Negative (Negative) 03/17/23 14:48 Urine Ketones Negative (Negative) 03/17/23 14:48 Urine Blood 1+ (Negative) H 03/17/23 14:48 Urine Nitrite Negative (Negative) 03/17/23 14:48 Urine Bilirubin Negative (Negative) 03/17/23 14:48 Urine Urobilinogen Negative (Negative) 03/17/23 14:48 Ur Leukocyte Esterase Negative (Negative) 03/17/23 14:48 Urine WBC (Auto) 1-5 /hpf (0-5) 03/17/23 14:48 Urine RBC (Auto) 0-4 /hpf (0-4) 03/17/23 14:48 U Hyaline Cast (Auto) 1-5 /lpf (0-5) 03/17/23 14:48 U Epithel Cells (Auto) 5-10 /lpf (0-5) H 03/17/23 14:48 Urine Bacteria (Auto) Negative (Negative) 03/17/23 14:48 Urine Crystals Not Reportable 03/17/23 14:48 Amorphous Sediment Present (None Prsent) A 03/17/23 14:[address] 03/17/23 14:30 CT cervical spine wo con CLINICAL HISTORY: 78 years-old Male with fall, worsening amb dysfunction, coumadin. Acute head and neck injury status post fall COMPARISON: Head CT of same day, CT cervical spine 06/27/2022 TECHNIQUE: Multiple axial CT images of the cervical spine were obtained without contrast. A dose lowering technique was utilized adhering to the principles of ALARA. FINDINGS: The visualized appearance of the bones. Multilevel changes are redemonstrated including severe disc space narrowing at C5-C6 and C6/C7 with moderate multilevel spondylotic spurring and moderate to severe facet arthrosis. Mild T2 and T3 superior endplate compression deformities without retropulsion appear chronic. No acute cervical spine fracture or subluxation identified. The cervical soft tissues appear unremarkable. Right mastoidectomy changes. The visualized lung apices appear clear. IMPRESSION: No acute cervical spine fracture or subluxation identified. ACT 112: Negative or not required by law. The above report was generated using voice recognition software. It may contain grammatical, syntax or spelling errors. Electronically signed by: Irwin Hu M.D. 03/17/2023 4:[address] 03/17/23 14:30 CT head/brain wo con CLINICAL HISTORY: fall, worsening amb dysfunction, coumadin Technique: Contiguous axial CT images of the head were acquired from the base of the skull to the vertex without intravenous contrast administration. Images were viewed in brain, subdural and bone windows. Automated dose lowering techniques and/or adjustment according to patient size were utilized for this exam. Comparison: Comparison is made to CT head 06/27/2022 Findings: Areas of decreased attenuation are present in the periventricular and vargas bcortical white matter bilaterally consistent with small vessel ischemic disease. Generalized cerebral atrophy with commensurate enlargement of the ventricles, sulci, and cisterns is also present. There is no acute intracranial hemorrhage or evidence of acute territorial infarction. No shift of the midline structures, mass effect, or extra-axial abnormalities are shown. Atherosclerotic calcifications are present in the intracranial segments of the internal carotid arteries. Soft tissue thickening seen in the sinuses most prominently in the right frontal sinuses and ethmoid air cells. The orbits appear normal. There are no acute fractures of the calvaria or scalp swelling. Impression: No acute intracranial hemorrhage, no evidence of acute territorial infarction or other acute intracranial disease process. ACT 112: Negative or not required by law. Electronically signed by: Blas Naqvi M.D. 03/17/2023 3:[address] 03/17/23 14:30 CT SCAN OF THE LUMBAR SPINE WITHOUT IV CONTRAST CLINICAL HISTORY: Fall. Ambulatory dysfunction. COMPARISON STUDY: CT scan of the lumbar spine dated 11/15/2020. MRI of the lumbar spine dated 12/30/2022. TECHNIQUE: CT scan of the lumbar spine was performed from the lower thoracic spine to the sacrum. Images are reviewed in the axial, sagittal, and coronal planes. IV contrast was not administered for this examination. A dose lowering technique was utilized adhering to the principles of ALARA. FINDINGS: The skeletal structures are osteopenic. There is no evidence of acute fracture or malalignment involving the lumbar spine. A subacute-appearing burst type compression fracture is seen involving the body of L1. Loss of height is similar to the 12/30/2022 MRI examination. There are minimally retropulsed fragments, with no significant acquired compromise of the central canal. Vertebral body height is otherwise maintained throughout the lumbar spine. There is minimal anterolisthesis of L4-L5. Alignment is otherwise preserved. Small anterior and lateral marginal osteophytes are seen throughout. The transverse and spinous processes appear intact. There is no spondylolysis. No lytic or b lastic lesion is seen. There is mild multilevel degenerative disc space narrowing throughout the lumbar spine. There is no CT evidence of high-grade central canal stenosis. Paravertebral edema is seen at L1. The visualized sacrum and bony pelvis appear intact. An IVC filter is noted within a left pelvic vein anterior to the sacrum. This is unchanged from previous. There is fatty atrophy of the paraspinous musculature. There is moderate atherosclerotic calcification of the abdominal aorta which is normal in caliber. IMPRESSION: 1. There is no evidence of acute fracture or malalignment involving the lumbar spine. 2. A subacute burst type compression fracture of L1 is again noted. Loss of height is similar to the 12/30/2022 MRI. 3. Osteopenia and degenerative change as above. 4. An IVC filter is again seen within a left pelvic vein anterior to the sacrum. This is unchanged in position from previous. ACT 112: Negative or not required by law. Dictated: 03/17/2023 3:34 PM Transcribed: 03/17/2023 3:51 PM Ramonshae [id number] [email or web address] [id number] Electronically signed by: Kel Brooks M.D. 03/17/2023 4:00 PM Lumbar Spine MRI 03/18/23 00:00 MRI OF THE LUMBAR SPINE WITHOUT IV CONTRAST CLINICAL HISTORY: Progressive weakness. L1 fracture. COMPARISON STUDY: CT scans of the lumbar spine dated 03/17/2023 and 11/15/2020. MRI of the lumbar spine dated 12/30/2022. TECHNIQUE: MRI of the lumbar spine was performed utilizing various T1 and T2- weighted sequences in the axial and sagittal planes. IV contrast was not administered for this examination. The examination is modestly degraded by motion artifact. FINDINGS: Lumbar spine: There is a late subacute burst type compression fracture of L1 with moderate loss of height. There is only faint residual marrow edema within the anterior aspect of the vertebral body. Loss of height has only modestly progressed as compared to the 12/30/2022 examination. Incompletely united fragment were better assessed on yesterday's CT scan. There is minimal retropulsion of fragments. No acute fracture is seen. Vertebral body height is otherwise maintained throughout the lumbar spine. Alignment is preserved. There is mild hyperlordosis. Anterior and lateral marginal osteophytes are seen throughout. The transverse and spinous processes appear intact. There is no evidence of spondylolysis. No destructive bony lesion is seen. Chronic degenerative endplate change is noted at several levels. There is no significant endplate edema. Intervertebral discs: Disc desiccation and loss of height is seen throughout the lumbar spine. Loss of height is severe at T12-L1 and moderate at L3-L4 and L4- L5. Spinal cord: The visualized spinal cord is normal in morphology and signal intensity. The conus medullaris terminates at the level of T12. The nerve roots of the cauda equina are normal in morphology. T12-L1: There is broad-based posterior disc bulge which abuts the transiting nerve roots. The central canal is clear. The neural foramina appear patent. L1: Fibrous or retropulsed by up to 4 mm as seen on axial image #5. There is no significant central canal stenosis. L1-L2: The central canal is clear. The neural foramina appear patent. L2-L3: There is minimal posterior disc bulge and hypertrophy of the ligamentum flavum. There is minimal central canal stenosis at this level with a minimum AP diameter of 8 mm. The neural foramina are patent. L3-L4: There is broad-based posterior disc bulge which abuts the transiting nerve roots. No significant acquired compromise of the central canal is seen. Lateral disc bulges contribute to bilateral subarticular stenosis, left greater than right. This may abut the exiting left L3 nerve root. Mild facet arthropathy is of no consequence. The neural foramina are patent. L4-L5: There is minimal posterior disc bulge. This abuts the transiting nerve roots. There is no significant acquired compromise of the central canal. Lateral disc bulges contribute to bilateral subarticular stenosis, left greater than right. This likely impinges on the exiting left L4 nerve root. In conjunction with facet arthropathy, there is mild bilateral neural foraminal narrowing. L5-S1: The central canal and neural foramina are patent. Sacrum: The visualized sacrum is normal in morphology and signal intensity. Soft tissues: There is fatty atrophy of the paraspinous musculature. The bladder wall is thickened/trabeculated indicating chronic outlet obstruction. The retroperitoneal structures are grossly unremarkable but incompletely evaluated. IMPRESSION: 1. Late subacute burst type compression fracture of L1. There is only faint residual marrow edema. 2. There are minimally retropulsed fragments which do not contribute to significant central canal stenosis. 3. Multilevel lumbosacral spondylosis as above. See discussion for detailed level by level analysis. 4. No acute fracture is seen and there is no destructive bone lesion identified. Dictated: 03/18/2023 8:06 PM Transcribed: 03/18/2023 11:31 PM Tere [id number] Karl [id number] Electronically signed by: Kel Brooks M.D. 03/18/2023 11:49 PM
--- NOTE | 2023-03-19 12:42 | XRay Report ---
XR knee RT 1 or 2V routine CLINICAL HISTORY: Right knee swelling and pain. COMPARISON: Right knee radiographs March 15, 2018. FINDINGS: Alignment of the right knee arthroplasty is anatomic. There is no periprosthetic fracture or lucency. A moderate size joint effusion is present. There is also pre and infrapatellar soft tissu e swelling. IMPRESSION: 1. Intact total right knee arthroplasty. No periprosthetic fracture or lucency. 2. Moderate size joint effusion. Pre and infrapatellar soft tissue swelling. ACT 112: Negative or not required by law. Electronically signed by: Jed Kwon M.D. 03/19/2023 12:41 PM
[2023-03-19] MEDS: WARFARIN SOD 5 MG TAB PO SCH (15:58)
[2023-03-19] MEDS: SERTRALINE HCL 50 MG TABLET PO SCH (20:40)
[2023-03-19] MEDS: ATORVASTATIN 40 MG TAB PO SCH (20:41)
[2023-03-20] MEDS: ACETAMINOPHEN 325 MG TAB PO SCH ×3 (05:27→20:46)
[2023-03-20 08:58] LABS: INR 3.2 (0.9-1.1); Prothrombin Time 32.8 Seconds (9.0-12.0)
[2023-03-20] MEDS: FLUTICASONE/VILANTEROL 100/25MCG 14 PUFFS/INHALER INH SCH (09:11)
[2023-03-20] MEDS: FLUTICASONE PROPIONATE NA SPR 16 GM BTL SCH (09:11)
[2023-03-20] MEDS: FERROUS SULFATE 325 MG TAB PO SCH (09:12)
[2023-03-20] MEDS: MAGNESIUM OXIDE 400 MG TAB PO SCH (09:12)
[2023-03-20] MEDS: DICLOFENAC SOD 1% GEL 100 GM TUBE EXT SCH ×4 (09:12→20:45)
[2023-03-20] MEDS: FINASTERIDE 5 MG TAB PO SCH (09:12)
[2023-03-20] MEDS: SOTALOL HCL 80 MG TAB PO SCH ×2 (09:12→20:45)
[2023-03-20] MEDS: MEMANTINE HCL 10 MG TAB PO SCH ×2 (09:12→20:45)
[2023-03-20] MEDS: TAMSULOSIN HCL 0.4 MG CAP PO SCH (09:12)
[2023-03-20] MEDS: OXYBUTYNIN CHLORIDE XL 5 MG TABCR PO SCH (09:12)
[2023-03-20] MEDS: MULTIVITAMIN TAB PO SCH (09:12)
[2023-03-20] MEDS: ASPIRIN 81 MG ECTAB PO SCH (09:12)
[2023-03-20] MEDS: CETIRIZINE HCL 10 MG TABLET PO SCH (09:12)
[2023-03-20] MEDS: ZAFIRLUKAST PO SCH ×2 (09:13→20:46)
--- NOTE | 2023-03-20 14:19 | Hospitalist Progress Note ---
Date of Service March 20, 2023 Assessment & Plan (1) Ambulatory dysfunction: (2) Frequent falls: (3) Chronic knee pain after total replacement of both knee joints: (4) Compression fracture of L1 lumbar vertebra: (5) Idiopathic peripheral neuropathy: (6) Sensory ataxia: (7) Chronic cerebral ischemia: (8) Vascular dementia: (9) PAF (paroxysmal atrial fibrillation): Plan This is a 78-year-old male who has a significant past medical history of vascular dementia, HTN, HLD, ARIS, moderate persistent asthma, PAF on warfarin, sick sinus syndrome, permanent pacemaker in place, chronic DVT, GERD, chronic ITP and CKD stage III presents to ED secondary to recent fall and inability to care for self at home. Ambulatory dysfunction Frequent falls Chronic knee pain after total replacement of both knee joints, and right knee exchange Subacute compression fracture of L1 with 30% vertebral volume loss Idiopathic peripheral neuropathy with sensory ataxia Patient presented from home with ambulatory dysfunction and frequent falls Lumbar CT and lumbar MRI personally reviewed; subacute burst type compression fracture of L1 present Suspect lower extremity weakness as result of chronic bilateral knee pain as well as peripheral neuropathy and sensory ataxia Orthopedic spine evaluated - Dr. Walker recommends mobilizing with PT, appropriate medication management, possible placement. Does not have anything that would be of an operative nature Awaiting evaluation by orthopedic surgery for bilateral knee pain; specifically right knee. Right knee shows moderate size joint effusion. PAF TBS status post PPM Continue sotalol and warfarin therapy Outpatient regimen is 1.25 mg Tuesday, , Tuesday and 2.5 mg all other days Hold Coumadin for now. ARIS CPAP at bedtime Moderate persistent asthma No acute exacerbation Chronic, stable Continue inhalers CKD stage III Chronic, stable Baseline creatinine 1-1.2 Follows [facility] nephrologyDr. Willoughby History of DVT/PE On warfarin [place] filter in place Vascular dementia Continue supportive care Namenda Chronic, stable, A&Ox3 at baseline, difficulty with short term DNR/DNI PCP: Maritza Dispo: Patient has history of multiple falls. He is on warfarin for anticoagulation. Awaiting evaluation by orthopedic surgery. Patient and interested in rehab. Discussed with online merchandising manager. Repeat PT OT evaluation to be done on Tuesday as per case management. Please note the above document was generated using voice recognition software. It may contain grammatical, syntax or spelling errors. Any formal questions or concerns about the content, text or information contained within the body of this dictation should be directly addressed to the provider for clarification Admission and Anticipated Discharge Date Admission Date: March 17, 2023 Subjective Patient seen and examined at bedside. Denies any pain or discomfort. Vital stable. No overnight events. Review of Systems Review of Systems: All systems reviewed & are unremarkable except as noted in Subjective Physical Exam Physical Exam: Gen: WD/WN, NAD, sitting in bedside chair, A&Ox3 HEENT: Normocephalic, atraumatic, conjunctivae moist, sclerae anicteric, mucous membranes moist Lung: Clear to Auscultation bilaterally, no wheezes/rales/rhonchi Heart: Regular rate, regular rhythm, no murmurs, rubs, or gallops Abdomen: Soft, NT, ND +BS x 4 Extremities: Right knee swelling present compared to left. No overlying erythema or tenderness Skin: Warm, no rash Results & Data Results & Data Vital Signs (Past 12 Hours) Vital Signs Temp Pulse Resp BP Pulse Ox O2 Del Method 03/20/23 08:30 Room Air 03/20/23 07:24 36.6 C 72 16 120/79 93 Room Air Laboratory Results Laboratory Results WBC 4.96 K/ul (4.8-10.8) 03/19/23 07:48 RBC 3.76 M/uL (4.70-6.10) L 03/19/23 07:48 Hgb 12.3 g/dl (14.0-18.0) L 03/19/23 07:48 Hct 37.8 % (42.0-52.0) L 03/19/23 07:48 MCV 100.5 fL (80.0-100.0) H 03/19/23 07:48 MCH 32.7 pg (25.0-34.0) 03/19/23 07:48 MCHC 32.5 g/dL (32.0-36.0) 03/19/23 07:48 RDW Std Deviation 50.7 fL (36.4-46.3) H 03/19/23 07:48 RDW Coeff of Cat 13.7 % (11.5-14.5) 03/19/23 07:48 Plt Count 205 K/uL (130-400) 03/19/23 07:48 MPV 12.6 fL (9.4-12.4) H 03/19/23 07:48 Immature Gran % (Auto) 0.3 % 03/17/23 14:40 Neut % (Auto) 60.4 % 03/17/23 14:40 Lymph % (Auto) 17.0 % 03/17/23 14:40 [place] % (Auto) 20.1 % 03/17/23 14:40 Eos % (Auto) 2.1 % 03/17/23 14:40 Baso % (Auto) 0.1 % 03/17/23 14:40 Neut # (Auto) 4.60 K/uL (1.40-6.50) 03/17/23 14:40 Lymph # (Auto) 1.29 K/uL (1.20-3.40) 03/17/23 14:40 [place] # (Auto) 1.53 K/uL (0.11-0.59) H 03/17/23 14:40 Eos # (Auto) 0.16 K/uL (0.00-0.50) 03/17/23 14:40 Baso # (Auto) 0.01 K/uL (0.00-0.20) 03/17/23 14:40 Immature Gran # (Auto) 0.02 K/uL (0.01-0.20) 03/17/23 14:40 PT 32.8 Seconds (9.0-12.0) H 03/20/23 07:44 INR 3.2 (0.9-1.1) H 03/20/23 07:44 Sodium 140 mmol/L (136-145) 03/19/23 07:48 Potassium 4.0 mmol/L (3.5-5.1) 03/19/23 07:48 Chloride 110 mmol/L (98-107) H 03/19/23 07:48 Carbon Dioxide 25 mmol/L (21-32) 03/19/23 07:48 Anion Gap 5 (3-11) 03/19/23 07:48 BUN 18 mg/dl (6-23) 03/19/23 07:48 Creatinine 0.95 mg/dl (0.6-1.4) 03/19/23 07:48 Est Cr Clr Drug Dosing 82.6 ml/min 03/19/23 07:48 Est GFR ( Amer) 89.8 ml/min 03/19/23 07:48 Est GFR (Non-Af Amer) 77.4 ml/min 03/19/23 07:48 BUN/Creatinine Ratio 18.9 (10-20) 03/19/23 07:48 Glucose 128 mg/dl (70-99(Fasting)) H 03/19/23 07:48 Calcium 9.4 mg/dl (8.6-10.3) 03/19/23 07:48 Magnesium 2.1 mg/dl (1.7-2.4) 03/18/23 07:08 Total Bilirubin 1.3 mg/dl (0.2-1.0) H 03/17/23 14:40 AST 25 U/L (13-39) 03/17/23 14:40 ALT 17 U/L (7-52) 03/17/23 14:40 Alkaline Phosphatase 105 U/L (34-104) H 03/17/23 14:40 Total Protein 7.9 gm/dl (6.0-8.3) 03/17/23 14:40 Albumin 4.2 gm/dl (3.4-5.0) 03/17/23 14:40 Globulin 3.7 gm/dl (2.5-4.0) 03/17/23 14:40 Albumin/Globulin Ratio 1.1 (0.9-2) 03/17/23 14:40 TSH 2.156 uIu/ml (0.300-4.500) 03/17/23 14:40 Urine Color Yellow 03/17/23 14:48 Urine Appearance Cloudy (Clear) A 03/17/23 14:48 Urine pH 7.5 (4.5-7.5) 03/17/23 14:48 Ur Specific [place] 1.013 (1.000-1.030) 03/17/23 14:48 Urine Protein Negative (Negative) 03/17/23 14:48 Urine Glucose (UA) Negative (Negative) 03/17/23 14:48 Urine Ketones Negative (Negative) 03/17/23 14:48 Urine Blood 1+ (Negative) H 03/17/23 14:48 Urine Nitrite Negative (Negative) 03/17/23 14:48 Urine Bilirubin Negative (Negative) 03/17/23 14:48 Urine Urobilinogen Negative (Negative) 03/17/23 14:48 Ur Leukocyte Esterase Negative (Negative) 03/17/23 14:48 Urine WBC (Auto) 1-5 /hpf (0-5) 03/17/23 14:48 Urine RBC (Auto) 0-4 /hpf (0-4) 03/17/23 14:48 U Hyaline Cast (Auto) 1-5 /lpf (0-5) 03/17/23 14:48 U Epithel Cells (Auto) 5-10 /lpf (0-5) H 03/17/23 14:48 Urine Bacteria (Auto) Negative (Negative) 03/17/23 14:48 Urine Crystals Not Reportable 03/17/23 14:48 Amorphous Sediment Present (None Prsent) A 03/17/23 14:[address] 03/17/23 14:30 CT cervical spine wo con CLINICAL HISTORY: 78 years-old Male with fall, worsening amb dysfunction, coumadin. Acute head and neck injury status post fall COMPARISON: Head CT of same day, CT cervical spine 06/27/2022 TECHNIQUE: Multiple axial CT images of the cervical spine were obtained without contrast. A dose lowering technique was utilized adhering to the principles of ALARA. FINDINGS: The visualized appearance of the bones. Multilevel changes are redemonstrated including severe disc space narrowing at C5-C6 and C6/C7 with moderate multilevel spondylotic spurring and moderate to severe facet arthrosis. Mild T2 and T3 superior endplate compression deformities without retropulsion appear chronic. No acute cervical spine fracture or subluxation identified. The cervical soft tissues appear unremarkable. Right mastoidectomy changes. The visualized lung apices appear clear. IMPRESSION: No acute cervical spine fracture or subluxation identified. ACT 112: Negative or not required by law. The above report was generated using voice recognition software. It may contain grammatical, syntax or spelling errors. Electronically signed by: Irwin Hu M.D. 03/17/2023 4:[address] 03/17/23 14:30 CT head/brain wo con CLINICAL HISTORY: fall, worsening amb dysfunction, coumadin Technique: Contiguous axial CT images of the head were acquired from the base of the skull to the vertex without intravenous contrast administration. Images were viewed in brain, subdural and bone windows. Automated dose lowering techniques and/or adjustment according to patient size were utilized for this exam. Comparison: Comparison is made to CT head 06/27/2022 Findings: Areas of decreased attenuation are present in the periventricular and subcortical white matter bilaterally consistent with small vessel ischemic disease. Generalized cerebral atrophy with commensurate enlargement of the ventricles, sulci, and cisterns is also present. There is no acute intracranial hemorrhage or evidence of acute territorial infarction. No shift of the midline structures, mass effect, or extra-axial abnormalities are shown. Atherosclerotic calcifications are present in the intracranial segments of the internal carotid arteries. Soft tissue thickening seen in the sinuses most prominently in the right frontal sinuses and ethmoid air cells. The orbits appear normal. There are no acute fractures of the calvaria or scalp swelling. Impression: No acute intracranial hemorrhage, no evidence of acute territorial infarction or other acute intracranial disease process. ACT 112: Negative or not required by law. Electronically signed by: Blas Naqvi M.D. 03/17/2023 3:[address] 03/17/23 14:30 CT SCAN OF THE LUMBAR SPINE WITHOUT IV CONTRAST CLINICAL HISTORY: Fall. Ambulatory dysfunction. COMPARISON STUDY: CT scan of the lumbar spine dated 11/15/2020. MRI of the lumbar spine dated 12/30/2022. TECHNIQUE: CT scan of the lumbar spine was performed from the lower thoracic spine to the sacrum. Images are reviewed in the axial, sagittal, and coronal planes. IV contrast was not administered for this examination. A dose lowering technique was utilized adhering to the principles of ALARA. FINDINGS: The skeletal structures are osteopenic. There is no evidence of acute fracture or malalignment involving the lumbar spine. A subacute-appearing burst type compression fracture is seen involving the body of L1. Loss of height is similar to the 12/30/2022 MRI examination. There are minimally retropulsed fragments, with no significant acquired compromise of the central canal. Vertebral body height is otherwise maintained throughout the lumbar spine. There is minimal anterolisthesis of L4-L5. Alignment is otherwise preserved. Small anterior and lateral marginal osteophytes are seen throughout. The transverse and spinous processes appear intact. There is no spondylolysis. No lytic or blastic lesion is seen. There is mild multilevel degenerative disc space narrowing throughout the lumbar spine. There is no CT evidence of high-grade central canal stenosis. Paravertebral edema is seen at L1. The visualized sacrum and bony pelvis appear intact. An IVC filter is noted within a left pelvic vein anterior to the sacrum. This is unchanged from previous. There is fatty atrophy of the paraspinous musculature. There is moderate atherosclerotic calcification of the abdominal aorta which is normal in caliber. IMPRESSION: 1. There is no evidence of acute fracture or malalignment involving the lumbar spine. 2. A subacute burst type compression fracture of L1 is again noted. Loss of height is similar to the 12/30/2022 MRI. 3. Osteopenia and degenerative change as above. 4. An IVC filter is again seen within a left pelvic vein anterior to the sacrum. This is unchanged in position from previous. ACT 112: Negative or not required by law. Dictated: 03/17/2023 3:34 PM Transcribed: 03/17/2023 3:51 PM Tere [id number] [email or web address] [id number] Electronically signed by: Kel Brooks M.D. 03/17/2023 4:00 PM Lumbar Spine MRI 03/18/23 00:00 MRI OF THE LUMBAR SPINE WITHOUT IV CONTRAST CLINICAL HISTORY: Progressive weakness. L1 fracture. COMPARISON STUDY: CT scans of the lumbar spine dated 03/17/2023 and 11/15/2020. MRI of the lumbar spine dated 12/30/2022. TECHNIQUE: MRI of the lumbar spine was performed utilizing various T1 and T2- weighted sequences in the axial and sagittal planes. IV contrast was not administered for this examination. The examination is modestly degraded by motion artifact. FINDINGS: Lumbar spine: There is a late subacute burst type compression fracture of L1 with moderate loss of height. There is only faint residual marrow edema within the anterior aspect of the vertebral body. Loss of height has only modestly progressed as compared to the 12/30/2022 examination. Incompletely united fragment were better assessed on yesterday's CT scan. There is minimal retropulsion of fragments. No acute fracture is seen. Vertebral body height is otherwise maintained throughout the lumbar spine. Alignment is preserved. There is mild hyperlordosis. Anterior and lateral marginal osteophytes are seen throughout. The transverse and spinous processes appear intact. There is no evidence of spondylolysis. No destructive bony lesion is seen. Chronic degenerative endplate change is noted at several levels. There is no significant endplate edema. Intervertebral discs: Disc desiccation and loss of height is seen throughout the lumbar spine. Loss of height is severe at T12-L1 and moderate at L3-L4 and L4- L5. Spinal cord: The visualized spinal cord is normal in morphology and signal intensity. The conus medullaris terminates at the level of T12. The nerve roots of the cauda equina are normal in morphology. T12-L1: There is broad-based posterior disc bulge which abuts the transiting nerve roots. The central canal is clear. The neural foramina appear patent. L1: Fibrous or retropulsed by up to 4 mm as seen on axial image #5. There is no significant central canal stenosis. L1-L2: The central canal is clear. The neural foramina appear patent. L2-L3: There is minimal posterior disc bulge and hypertrophy of the ligamentum flavum. There is minimal central canal stenosis at this level with a minimum AP diameter of 8 mm. The neural foramina are patent. L3-L4: There is broad-based posterior disc bulge which abuts the transiting nerve roots. No significant acquired compromise of the central canal is seen. Lateral disc bulges contribute to bilateral subarticular stenosis, left greater than right. This may abut the exiting left L3 nerve root. Mild facet arthropathy is of no consequence. The neural foramina are patent. L4-L5: There is minimal posterior disc bulge. This abuts the transiting nerve roots. There is no significant acquired compromise of the central canal. Lateral disc bulges contribute to bilateral subarticular stenosis, left greater than right. This likely impinges on the exiting left L4 nerve root. In conjunction with facet arthropathy, there is mild bilateral neural foraminal narrowing. L5-S1: The central canal and neural foramina are patent. Sacrum: The visualized sacrum is normal in morphology and signal intensity. Soft tissues: There is fatty atrophy of the paraspinous musculature. The bladder wall is thickened/trabeculated indicating chronic outlet obstruction. The retroperitoneal structures are grossly unremarkable but incompletely evaluated. IMPRESSION: 1. Late subacute burst type compression fracture of L1. There is only faint residual marrow edema. 2. There are minimally retropulsed fragments which do not contribute to significant central canal stenosis. 3. Multilevel lumbosacral spondylosis as above. See discussion for detailed level by level analysis. 4. No acute fracture is seen and there is no destructive bone lesion identified. Dictated: 03/18/2023 8:06 PM Transcribed: 03/18/2023 11:31 PM Tere [id number] [email or web address] [id number] Electronically signed by: Kel Brooks M.D. 03/18/2023 11:49 PM Knee X-Ray 03/19/23 12:05 XR knee RT 1 or 2V routine CLINICAL HISTORY: Right knee swelling and pain. COMPARISON: Right knee radiographs March 15, 2018. FINDINGS: Alignment of the right knee arthroplasty is anatomic. There is no periprosthetic fracture or lucency. A moderate size joint effusion is present. There is also pre and infrapatellar soft tissue swelling. IMPRESSION: 1. Intact total right knee arthroplasty. No periprosthetic fracture or lucency. 2. Moderate size joint effusion. Pre and infrapatellar soft tissue swelling. ACT 112: Negative or not required by law. Electronically signed by: Jed Kwon M.D. 03/19/2023 12:41 PM
[2023-03-20] MEDS: ATORVASTATIN 40 MG TAB PO SCH (20:45)
[2023-03-20] MEDS: SERTRALINE HCL 50 MG TABLET PO SCH (20:46)
[2023-03-21] MEDS: ACETAMINOPHEN 325 MG TAB PO SCH ×3 (05:36→21:21)
[2023-03-21 07:33] LABS: INR 3.9 (0.9-1.1); Prothrombin Time 39.3 Seconds (9.0-12.0)
[2023-03-21] MEDS: FLUTICASONE PROPIONATE NA SPR 16 GM BTL SCH (08:32)
[2023-03-21] MEDS: FLUTICASONE/VILANTEROL 100/25MCG 14 PUFFS/INHALER INH SCH (08:33)
[2023-03-21] MEDS: ZAFIRLUKAST PO SCH ×2 (08:33→20:03)
[2023-03-21] MEDS: MEMANTINE HCL 10 MG TAB PO SCH ×2 (08:34→20:03)
[2023-03-21] MEDS: MAGNESIUM OXIDE 400 MG TAB PO SCH (08:34)
[2023-03-21] MEDS: MULTIVITAMIN TAB PO SCH (08:34)
[2023-03-21] MEDS: DICLOFENAC SOD 1% GEL 100 GM TUBE EXT SCH ×4 (08:34→20:02)
[2023-03-21] MEDS: FERROUS SULFATE 325 MG TAB PO SCH (08:35)
[2023-03-21] MEDS: ASPIRIN 81 MG ECTAB PO SCH (08:35)
[2023-03-21] MEDS: TAMSULOSIN HCL 0.4 MG CAP PO SCH (08:35)
[2023-03-21] MEDS: OXYBUTYNIN CHLORIDE XL 5 MG TABCR PO SCH (08:36)
[2023-03-21] MEDS: SOTALOL HCL 80 MG TAB PO SCH ×2 (08:36→20:03)
[2023-03-21] MEDS: FINASTERIDE 5 MG TAB PO SCH (08:36)
[2023-03-21] MEDS: CETIRIZINE HCL 10 MG TABLET PO SCH (10:18)
--- NOTE | 2023-03-21 14:51 | Hospitalist Progress Note ---
Date of Service March 21, 2023 Assessment & Plan (1) Ambulatory dysfunction: (2) Frequent falls: (3) Chronic knee pain after total replacement of both knee joints: (4) Compression fracture of L1 lumbar vertebra: (5) Idiopathic peripheral neuropathy: (6) Sensory ataxia: (7) Chronic cerebral ischemia: (8) Vascular dementia: (9) PAF (paroxysmal atrial fibrillation): Plan This is a 78-year-old male who has a significant past medical history of vascular dementia, HTN, HLD, ARIS, moderate persistent asthma, PAF on warfarin, sick sinus syndrome, permanent pacemaker in place, chronic DVT, GERD, chronic ITP and CKD stage III presents to ED secondary to recent fall and inability to care for self at home. Ambulatory dysfunction Frequent falls Chronic knee pain after total replacement of both knee joints, and right knee exchange Subacute compression fracture of L1 with 30% vertebral volume loss Idiopathic peripheral neuropathy with sensory ataxia Patient presented from home with ambulatory dysfunction and frequent falls Lumbar CT and lumbar MRI - subacute burst type compression fracture of L1 present, similar to 12/2022 Suspect lower extremity weakness as result of chronic bilateral knee pain as well as peripheral neuropathy and sensory ataxia Orthopedic spine evaluated - Dr. Walker recommends mobilizing with PT, appropriate medication management, possible placement. Does not have anything that would be of an operative nature. Awaiting evaluation by orthopedic surgery for bilateral knee pain; specifically right knee. Right knee shows moderate size joint effusion; doubt infection - afebrile, no leukocytosis, minimal pain with movement PAF TBS status post PPM Continue sotalol and warfarin therapy INR 3.9 Outpatient regimen is 1.25 mg Tuesday, , Tuesday and 2.5 mg all other days Hold Coumadin for now. ARIS CPAP at bedtime Moderate persistent asthma No acute exacerbation Chronic, stable Continue inhalers CKD stage III Chronic, stable Baseline creatinine 1-1.2 Follows [facility] nephrologyDr. Willoughby History of DVT/PE On warfarin [place] filter in place Vascular dementia Continue supportive care Namenda Chronic, stable, A&Ox3 at baseline, difficulty with short term DVT PROPHYLAXIS On Coumadin Dispo -patient and requesting rehab, reevaluated by PT today who is now recommending rehab, CM following Patient seen in collaboration with Dr. Garza. Admission and Anticipated Discharge Date Admission Date: March 17, 2023 Supervising Physician Co-Signing Physician Notes Seen and examined independently. Discussed with above provider. He is lying in the bed comfortably; not in any distress. Awaiting orthopedic eval. Repeat PT OT eval for suggested rehab. Case management on board. Subjective Follow-up for ambulatory dysfunction, chronic bilateral knee pain. Patient seen and examined. Working with therapy. Reports ongoing right knee pain with ambulation. No chest pain or shortness of breath. Denies abdominal pain and nausea. Physical Exam Constitutional: WD/WN, vitals as above no acute distress Respiratory: normal respiratory effort, lungs clear to auscultation Cardiovascular: Rate/Rhythm: regular rate and regular rhythm Vessels: normal peripheral pulses Extremities: no edema Gastrointestinal (Abdomen): Percussion/Palpation: abdomen soft; abdomen nontender Musculoskeletal: + right knee swelling - not reddened or warm to touch Skin: no rashes, warm and dry Neurologic: no focal motor deficits Psychiatric: A+Ox3, euthymic affect Results & Data Results & Data Vital Signs (Past 12 Hours) Vital Signs Temp Pulse Resp BP Pulse Ox O2 Del Method 03/21/23 14:36 36.7 C 71 16 123/77 94 Room Air 03/21/23 07:32 36.3 C L 68 16 143/82 H 95 Room Air
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
--- OUTSIDE RECORDS SUMMARY | 2023-03-21 15:30 | External Medical Summary ---
Author Name Unknown Address Unknown Organization K01:[facility] - [address] [place] [address] Laboratory Report Ordering Provider Test Date Status ROGER CARTWRIGHT 03/08/2023 08:13:00 Final Warfarin Therapy
INR: 2 .0-3.0 conventional anticoagulation
INR: 2.5- 3.5 high intensity anticoagulation Observation Date Value Abnormality Reference (Units ) Status PT 03/08/2023 08:13:00 30.4 Above high normal 11 .6-15.2 (seconds) Final INR 03/08/2023 08:13:00 2.9 Above high normal 0. 8-1.2 Final Performing Location [facility] - [address] [place] [address]
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
--- OUTSIDE RECORDS SUMMARY | 2023-03-21 15:35 | External Medical Summary ---
Author Name Unknown Address Unknown Organization K0G[facility] [address] [place] [address] Laboratory Report Ordering Provider Test Date Status GABBIECHETANRenny 02/15/2023 09:11:00 Final Warfarin Therapy
INR: 2 .0-3.0 conventional anticoagulation
INR: 2.5- 3.5 high intensity anticoagulation Observation Date Value Abnormality Reference (Units ) Status PT 02/15/2023 09:11:00 26.7 Above high normal 11 .6-15.2 (seconds) Final INR 02/15/2023 09:11:00 2.4 Above high normal 0. 8-1.2 Final Performing Location [facility] [address] [place] [address]
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
--- OUTSIDE RECORDS SUMMARY | 2023-03-21 15:36 | External Medical Summary ---
Author Name Unknown Address Unknown Organization [id number]:LABORATORY [facility] [place] - [address] [place] [address] Laboratory Report Ordering Provider Test Date Status ROGER CARTWRIGHT 01/25/2023 09:32:00 Final Warfarin Therapy
INR: 2 .0-3.0 conventional anticoagulation
INR: 2.5- 3.5 high intensity anticoagulation Observation Date Value Abnormality Reference (Units ) Status PT 01/25/2023 09:32:00 26.2 Above high normal 11 .6-15.2 (seconds) Final INR 01/25/2023 09:32:00 2.4 Above high normal 0. 8-1.2 Final Performing Location LABORATORY C - [address] [place] [address]
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
--- OUTSIDE RECORDS SUMMARY | 2023-03-21 15:37 | External Medical Summary ---
Author Name Unknown Address Unknown Organization : Laboratory Report Ordering Provider Test Date Status [facility]ER CARTWRIGHT 01/14/2023 11:04:57 Final Therapeutic ranges for non-o perative patients:
Prophylaxsis/treatment of DVT: (Range:2.0-3.0)
Treatment of pulmonary embolism:(Range:2.0-3.0)
Prevention of systemic embolism from:
-tissue heart valves
-acute myocardial infarction
-valvular heart disease
-atrial fibrillation
(Range: 2.0-3.0)
Mechanical prosthetic valves: (Range: 2.5-3.5) Observation Date Value Abnormality Reference (Units ) Status INR in Capillary blood by Coagulation assay 01/14/2023 11:04:57 1.2 (INR) Final Performing Location
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
--- OUTSIDE RECORDS SUMMARY | 2023-03-21 15:37 | External Medical Summary ---
Author Name Unknown Address Unknown Organization K0G:[facility] [address] [place] [address] Laboratory Report Ordering Provider Test Date Status GABBIECHETANRenny 01/19/2023 12:01:58 Final Warfarin Therapy
INR: 2 .0-3.0 conventional anticoagulation
INR: 2.5- 3.5 high intensity anticoagulation Observation Date Value Abnormality Reference (Units ) Status PT 01/19/2023 12:01:58 24.8 Above high normal 11 .6-15.2 (seconds) Final INR 01/19/2023 12:01:58 2.2 Above high normal 0. 8-1.2 Final Performing Location [facility] [address] [place] [address]
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
--- OUTSIDE RECORDS SUMMARY | 2023-03-21 15:39 | External Medical Summary | Summary of Care ---
Author Name Unknown Organization [facility] Address [address] [place] [address] Phone [phone] Care Team Providers Care Rubber Engraver Name Role Phone Leno Salas MD Primary Care Provider +1- [phone] Encounter Details Date Type Department Care Team Description 12/10/2022 Result Scan Unspecified Department Joseph Prado, DO [address] [place] [address] <No scans attached> Allergies Active Allergy Reactions Severity Noted Date Comments Adhesive Tape 03/14/2003 Irritation / Rash Latex 07/14/2022 documented as of this encounter (statuses as of 12/10/2022) Medications Medication Sig Dispensed Refills Start Date [...] SPRAYS INTO EACH NOSTRIL ONCE DAILY 48 mL 1 09/22/2022 4 Active Zafirlukast 20 MG [...] MOUTH EVERY DAY 90 Capsule 3 12/23/2021 3 Active Warfarin Sodium 2.5 MG Oral [...] Pain, Severe. 12 Tablet 0 12/08/2022 Active documented as of this encounter (statuses as of 12/10/2022) Active Problems Problem Noted Date Atrial fibrillation [...] ARIS (obstructive sleep apnea) 05/27/2020 D-CARE Research Other*[id number] 020 Last Assessment & Plan: D-Care is a pragmatic, randomized, 3-arm superiority trial comparing effectiveness of health-system based care vs. community-based dementia care. Mat Cleaning Machine Operator Mckayla Serna MD and Devin Loredo MD.; Coordinator Nella Boss RN [phone]. 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 t herapy 12/22/2016 Overview: ICD-10 update of inactive term S/P ventral herniorrhaphy 04/16/2014 Overview: Open rectro-rectus ventral hernia repair with mesh Dyslipidemia, goal LDL below 70 08/04/19 12 SPINAL STENOSIS-OTH SITE 06/28/2000 HTN, goal below 140/90 documented as of this encounter (statuses as of 12/10/2022) Resolved Problems Problem Noted Date Resolved Date [...] as of this encounter (statuses as of 12/10/2022) Immunizations Name Administration Dates Next Due COVID-19 mRNA, LNP-s, No Pre serve, 2-Dose Series (MedLink) 04/18/2021,07/13/2020,06/15/2020 Covid-19, Mrna, Lnp-s, Pf, B ivalent, 30 Mcg, IM, 12 yrs and above (MedLink) 02/23/2022 Pneumococcal Conjugate Vacc, 13 Valent (Prevnar) 11/05/2015 Pneumococcal Polysaccharide PPV23 (Pneumovax) 02/26/2014,10/03/2008 Seasonal Influenza, Quadriva lent Hd (Fluzone Hd) 02/23/2022,02/04/2021 Seasonal Influenza, Quadriva lent, No Preserve, 6 Mons & Above, IM 01/25/2020,02/15/2019,03/02/2017 Seasonal Influenza, Quadriva lent, No Preserve, IM [...] Encounters Date Type Specialty Care Team Description 12/24/2022 [facility] [address] [place] [address] 01/19/2023 Office Visit Otolaryngology Nikkie Guerrero PA-C [address] [place], [place] [address] 02/02/2023 Hospital Encounter Endoscopy Astrid Henderson MD [address] [place] [address] 02/02/2023 Surgery Endoscopy Astrid Henderson MD [address] [place] [address] COLONOSCOPY FLEXIBLE PROXIMAL DIAGNOSTIC 03/24/2023 Cardiac Studies Cardiology [facility] [address] [place] [address] 04/08/2023 Office Visit Family Medicine Leno Salas MD [address] [place] [address] 05/24/2023 Office Visit Dermatology Elsie Klein PA-C [address] [place] [address] [place] [address] 06/07/2023 Laboratory Laboratory [facility], Lab Scenery [address] [place] [address] 06/07/2023 Office Visit Hematology Oncology Stuart Santizo MD [address] [place], [place] [address] Scheduled Procedures Name Priority Associated Diagnoses Date/Ti me COLONOSCOPY FLEXIBLE PROXIMAL DIAGNOSTIC Recall Encounter for screening colonoscopy 02/02/2023 8:00 AM EDT Health Maintenance Due Date Last Done Comments DTaP,Tdap,and Td Vaccines (3 - Td or Tdap) 06/01/2021 06/01/2011, 12/03/2005 COLONOSCOPY-EVERY 5 YRS AGES 18-100 08/18/2022 08/18/2017, 06/04/2013, 11/13/2002 CKD PHOS USE SMARTSET 64872 11/23/202211/06, 05/26/2021, 11/27/2020, Additional history exists Influenza Vaccine (FLU shot) (#1) 2023 02/23/2022, 02/04/2021, 01/25/2020, Additional history exists GFR 06/04/2023 12/02/2022, 05/10, 11/23/2021, Additional history exists Albumin/Creatinine Ratio 06/15/2023 06/15/2022, 0512/2018 Depression Screening, Annual for Pts 12 and Over 09/23/2023 09/22/2022 CKD HGB USE SMARTSET 82415 12/03/202312/02, 12/02/2022, 06/04/2022, Additional history exists Pneumococcal [...] this encounter Medical Devices Implanted Type Area Skiving Machine Operator Device Identifier Shelf Expiration Date Model / Serial / Lot [facility] Square 30cm X 30cm - [id number] Implanted:Qty: 1 on 03/26/2014 by Garima Conroy MD at OR [facility] N/A: Abdomen [employer] 02/05/2018 [id number] / / [id number] documented as of this encounter Procedures Procedure Name Priority Date/Time Associated Diagnosis Comments CARDIOLOGY SCANNED RESULT 12/10/2022 documented in this encounter Results * CARDIOLOGY SCANNED RESULT (12/10/2022) 12/10/2022 Joseph TORRES documented in this encounter Advance [...] Directives occurred with: Not Discussed Care Teams Rubber Engraver Relationship Specialty Start Date End Date Leno Salas MD [address] [place] [address] PCP - General Family Medicine 05/23/14 documented as of this encounter
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
--- OUTSIDE RECORDS SUMMARY | 2023-03-21 15:39 | External Medical Summary ---
Author Name Unknown Address Unknown Organization : Laboratory Report Ordering Provider Test Date Status MAGNUSKENDRICK PainterMICHAEL 12/24/2022 10:58:58 Final Therapeutic ranges for non-o perative patients:
Prophylaxsis/treatment of DVT: (Range:2.0-3.0)
Treatment of pulmonary embolism:(Range:2.0-3.0)
Prevention of systemic embolism from:
-tissue heart valves
-acute myocardial infarction
-valvular heart disease
-atrial fibrillation
(Range: 2.0-3.0)
Mechanical prosthetic valves: (Range: 2.5-3.5) Observation Date Value Abnormality Reference (Units ) Status INR in Capillary blood by Coagulation assay 12/24/2022 10:58:58 3.4 (INR) Final Performing Location
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
--- OUTSIDE RECORDS SUMMARY | 2023-03-21 15:40 | External Medical Summary ---
Author Name Unknown Address Unknown Organization K01:LABORATORY [facility] - [address] [place] [address] [place] [address] Laboratory Report Ordering Provider Test Date Status FRANCIS MOLINA 12/02/2022 10:36:54 Final Observation Date Value Abnormality Reference (Units) Status Protein 12/02/2022 10:36:54 7.2 6.0-8.3 (g/dL) Final Albumin/Protein.total [Pure mass fraction] in Serum or Plasma by Electrophoresis 12/02/2022 10:36:54 3.49 3.30-4.40 (g/dL) Final Alpha 1 globulin/Protein.tota l [Pure mass fraction] in Serum or Plasma by Electrophoresis 12/02/2022 10:36:54 0.19 0.10-0.30 (g/dL) Final Alpha 2 globulin/Protein.tota l [Pure mass fraction] in Serum or Plasma by Electrophoresis 12/02/2022 10:36:54 0.85 0.60-1.00 (g/dL) Final Beta globulin/Protein.tota l [Pure mass fraction] in Serum or Plasma by Electrophoresis 12/02/2022 10:36:54 0.74 Below low normal 0.80-1.30 (g/dL) Final Gamma globulin/Protein.tota l [Pure mass fraction] in Serum or Plasma by Electrophoresis 12/02/2022 10:36:54 1.93 Above high normal 0.70-1.70 (g/dL) Final Protein Fractions [Interpretation] in Serum or Plasma by Electrophoresis Narrative 12/02/2022 10:36:54 A paraprotein is present that has been previously identified as a monoclonal IgG kappa. A paraprotein is present that has been previously identified as a monoclonal IgG lambda. Paraprotein concentration is detectable, but less than 0.5 g/dL, unable to be Final Protein Fractions [Interpretation] in Serum or Plasma by Electrophoresis Narrative 12/02/2022 10:36:54 accurately quantified by this method. Final Performing Location LABORATORY [facility] - [address] [facility] [address]
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
--- OUTSIDE RECORDS SUMMARY | 2023-03-21 15:40 | External Medical Summary ---
Author Name Unknown Address Unknown Organization K01:LABORATORY [facility] [place] - [address] [place] [address] Laboratory Report Ordering Provider Test Date Status RADHA SEAY 12/02/2022 10:36:54 Final Observation Date Value Abnormality Reference (Units ) Status MYCODE SPECIMEN-SST 12/02/2022 10:36:54 Freezing of extracted DNA, whole blood and/or serum. Final Performing Location LABORATORY [facility] - [address] [place] [address]
--- OUTSIDE RECORDS SUMMARY | 2023-03-21 15:40 | External Medical Summary ---
Author Name Unknown Address Unknown Organization K01:LABORATORY [facility] - [address] [place] [address] Laboratory Report Ordering Provider Test Date Status RADHA SEAY 12/02/2022 10:36:54 Final Observation Date Value Abnormality Reference (Units ) Status MYCODE SPECIMEN-SST 12/02/2022 10:36:54 Freezing of extracted DNA, whole blood and/or serum. Final Performing Location LABORATORY [facility] - [address] [place] [address]
--- OUTSIDE RECORDS SUMMARY | 2023-03-21 15:40 | External Medical Summary | Summary of Care ---
Author Name Unknown Organization [facility] Address [address] [place] [address] Phone [phone] Care Team Providers Care Manager Business Operations Name Role Phone Leno Salas MD Primary Care Provider +1- [phone] Reason for Visit * Reason Comments Acute Encounter Details Date Type Department Care Team Description 12/08/2022 Office Visit [facility] [address] [place] [address] Dolores Higgins PA-C [address] [place] [address] Anticoagulated on Coumadin*; Personal history of fall; Contusion of back, unspecified laterality, initial encounter Allergies Active Allergy Reactions Severity Noted Date Comments Adhesive Tape 03/14/2003 Irritation / Rash Latex 07/14/2022 documented as of this encounter (statuses as of 12/08/2022) Medications Medication Sig Dispensed Refills Start Date End Date Status MULTI-DAY VITAMINS PO TABSIndications:R outine medical exam 1 daily 0 6 Active OCUVITE EXTRA PO TABS 1 tablet daily 0 Active urea 40 % creamIndications: Irritant hand dermatitis Apply to hands twice daily as needed for flares. 198.4 g 5 7 Active dutasteride (AVODART) 0.5 MG Capsule Take 1 Capsule by mouth every evening. 0 7 Active tamsulosin (FLOMAX) 0.4 MG Capsule Take 1 Capsule by mouth in the morning. 30 Cap 0 7 Active Ferrous Sulfate 325 (65 Fe) [...] day with morning and evening meals. 0 8 Active acetaminophen (TYLENOL) 500 MG Tablet Take 2 Tablets by mouth as needed. 0 Active Aspirin 81 MG TabletIndications :TIA (transient ischemic attack) Take 1 Tablet by mouth in the morning. 34 Tab 5 9 Active Solifenacin Succinate 5 MG Oral Tablet (VESIcare) Take 1 Tablet by mouth in the morning. 0 0 Active CPAP every night at bedtime. 0 [...] EACH NOSTRIL ONCE DAILY 48 mL 1 3 09/22/19 24 Active Zafirlukast 20 [...] 180 Tablet 3 3 05/17/19 24 Active Solifenacin Succinate 10 MG Oral Tablet (VESIcare) TAKE ONE TABLET BY MOUTH EVERY DAY 90 Tablet 3 2 03/17/20 23 Active Sertraline HCl 100 MG Oral Tablet (Zoloft)Indicatio ns:Adjustment disorder with depressed mood TAKE ONE AND ONE-HALF TABLETS BY MOUTH EVERY DAY 135 Tablet 3 2 03/15/20 23 Active Tamsulosin HCl 0.4 MG Oral Capsule (Flomax) TAKE ONE CAPSULE BY MOUTH EVERY DAY 90 Capsule 3 2 12/24/19 23 Active Warfarin Sodium 2.5 MG Oral Tablet (Coumadin) TAKE ONE-HALF TO ONE TABLET BY MOUTH EVERY DAY DIRECTED BY ANTICOAGULATION CLINIC 90 Tablet 1 3 11/16/19 24 Active Gabapentin 100 MG Oral Capsule (Neurontin)Indica tions:Contusion of back, unspecified laterality, initial encounter Take 1 Capsule by mouth in the morning and 1 Capsule at noon and 1 Capsule before bedtime. 90 Capsule 5 3 Active predniSONE 10 MG Oral Tablet (Deltasone)Indica tions:Contusion of back, unspecified laterality, initial encounter Take 5 tabs for 2 days, 4 tabs for 2 days, 3 tabs for 2 days, 2 tabs for 2 days 1 tab for 2 days 30 Tablet 0 3 Active traMADol HCl 50 MG Oral Tablet (Ultram)Indicatio ns:Personal history of fall,Contusion of back, unspecified laterality, initial encounter Take 1 Tablet by mouth every 6 hours as needed for Pain, Severe. 12 Tablet 0 3 Active Gabapentin 300 MG Oral Capsule (Neurontin) TAKE ONE CAPSULE BY MOUTH EVERY DAY 90 Capsule 1 3 12/09/19 23 Discontinu ed(Medicat ion List Clean Up) documented as of this encounter (statuses as of 12/08/2022) Active Problems Problem Noted Date Atrial fibrillation [...] ARIS (obstructive sleep apnea) 05/27/2020 D-CARE Research Other*[id number] 020 Last Assessment & Plan: D-Care is a pragmatic, randomized, 3-arm superiority trial comparing effectiveness of health-system based care vs. community-based dementia care. Respiratory Care Assistant Mckayla Serna MD and Devin oLredo MD.; Coordinator Nella Boss RN [phone]. History of sick sinus syndrome 8 Sensory [...] as of this encounter (statuses as of 12/08/2022) Resolved Problems Problem Noted Date Resolved Date [...] as of this encounter (statuses as of 12/08/2022) Immunizations Name Administration Dates Next Due COVID-19 mRNA, LNP-s, No Pre serve, 2-Dose Series ([employer]) 04/18/2021,07/13/2020,06/15/2020 Covid-19, Mrna, Lnp-s, Pf, B ivalent, 30 Mcg, IM, 12 yrs and above ([employer]) 02/23/2022 Pneumococcal Conjugate Vacc, 13 Valent (Prevnar) [...] Sign Reading Time Taken Comments Blood Pressure 120/74 12/08/2022 10:33 AM EDT Pulse 74 12/08/2022 10:33 AM EDT Temperature 36.4 C (97.5 F) 12/08/2022 1 0:33 AM EDT Respiratory Rate 16 12/08/2022 10:3 3 AM EDT Oxygen Saturation 93% 12/08/2022 10: 33 AM EDT Inhaled Oxygen Concentration - - Weight 106.9 kg (235 lb 9.6 oz) 023 10:33 AM EDT Height - - Body Mass Index 31.57 07/14/2022 11:30 AM EST documented in this [...] as of this encounter Progress Notes * Dolores Higgins PA-C - 12/08/2022 10:42 AM EDT Images from the original note were not included. History of Present Illness Williams Olguin is a 77 year old male that presents for Acute Here as he had a fall. This was Tuesday morning getting ouf the shower. Has had falls before - dementia and neuropathy contributed. Ongoing issue. There is a lip at the edge of the shower that he fell, landing on his back on this. He landed right at the top of his buttocks on the ledge Hurt immediately. Legs did not seem any different than normal with getting him up They get him on all 4's and then use a strap to help him stand up. He has a bruise on his upper back but nothing on the lower back. They have iced, they have used tylenol ES. It is not helping at all. The ice has not helped at all. He is very limited in what he can do. He is communicative but somewhat non verbal - provides the bulk of history which he corroborates by nodding. The hip is not the problem. On coumadin. Physical Exam Vitals: 12/08/22 1033 Temp: 36.4 C (97.5 F) Pulse: 74 Resp: 16 SpO2: 93% BP: 120/74 BP Readings from Last 3 Encounters: 12/08/22 120/74 10/13/22 126/70 09/22/22 124/70 Wt Readings from Last 3 Encounters: 12/08/22 106.9 kg (235 lb 9.6 oz) 10/13/22 112.5 kg (248 lb) 09/22/22 112.5 kg (248 lb) BMI Readings from Last 3 Encounters: 12/08/22 31.57 kg/m 10/13/22 33.23 kg/m 09/22/22 33.23 kg/m Ht Readings from Last 3 Encounters: 07/14/22 1.84 m (6' 0.44") 05/14/22 1.84 m (6' 0.44") 01/13/22 1.829 m (6' 0.01") General: alert, healthy and no distress Head: Normocephalic, No masses, lesions, tenderness or abnormalities Heart: regular rate & rhythm, no murmur, no gallops, S-1 normal and S-2 normal Lungs: chest symmetric with normal AP diameter, no chest deformities noted, no chest wall tenderness, lungs clear to auscultation Back: back symmetric, no curvature, no costovertebral angle tenderness, range of motion is normal, Normal DTRs of patella and ankles bilaterally, Normal heel walk and toe walk, without evidence of muscle weakness, contused low back, swollen,. No sig ttp. No pain with arm movement. Extremities: less than 2 second capillary refill, no joint deformities, effusion, or inflammation Neuro Exam: alert & oriented x 3 with fluent speech, no focal motor/sensory deficits, gait normal, reflexes normal and symmetric Skin: skin color, texture, turgor are normal, no rashes or significant lesions Assessment and Plan Anticoagulated on Coumadin (Primary) Personal history of fall - traMADol HCl 50 MG Oral Tablet (Ultram); Take 1 Tablet by mouth every 6 hours as needed for Pain,Severe. - XR L SPINE AP AND LATERAL; Future; Expected date: 12/08/2022 Contusion of back, unspecified laterality, initial encounter - Gabapentin 100 MG Oral Capsule (Neurontin); Take 1 Capsule by mouth in the morning and 1 Capsule at noon and 1 Capsule before bedtime. - predniSONE 10 MG Oral Tablet (Deltasone); Take 5 tabs for 2 days, 4 tabs for 2 days, 3 tabs for 2days, 2 tabs for 2 days 1 tab for 2 days - traMADol HCl 50 MG Oral Tablet (Ultram); Take 1 Tablet by mouth every 6 hours as needed for Pain,Severe. - XR L SPINE AP AND LATERAL; Future; Expected date: 12/08/2022 Wrap-Up Cont ice and tylenol Home care rev Discussed risk and benefits of short term prednisone therapy. Pt aware that there are side affects such as increased energy, aggression and mood swings, swelling, and increase in appetite. Agrees that this is the best course and is what is needed to deal with the issues. Xray Lower dose of gabapentin Short term tramadol Time: I spent a total of 10-19 minutes (exact time 18 mins) on the date of service in preparation, delivery, and documentation of the care provided to Williams Olguin excluding any time spent in the performance of separately billed services. Dolores Higgins PA-C 12/08/2022 10:58 AM documented in this encounter Nursing Notes * Cheri Hidalgo LPN - 12/08/2022 10:33 AM EDT States he fell stepping out of the shower on Tuesday 12/05. Hit his lower back & tailbone documented in this encounter Plan of Treatment Upcoming Encounters Date Type Specialty Care Team Description 12/24/2022 [facility]ticoagulation [facility] [address] [place] [address] 01/19/2023 Office Visit Otolaryngology Nikkie Guerrero PA-C [address] [place] [address] 02/02/2023 Hospital Encounter Endoscopy Astrid Henderson MD [address] [place] [address] 02/02/2023 Surgery Endoscopy Astrid Henderson MD [address] [place] [address] COLONOSCOPY FLEXIBLE PROXIMAL DIAGNOSTIC 03/24/2023 Cardiac Studies Cardiology [facility] [address] [place] [address] 04/08/2023 Office Visit Family Medicine Leno Salas MD [address] [place] [address] 05/24/2023 Office Visit Dermatology Elsie Klein PA-Dylan [address] [place] [address] [place] [address] 06/07/2023 Laboratory Laboratory [place], Lab Scenery [address] [place] [facility] [address] 06/07/2023 Office Visit Hematology Oncology Stuart Santizo MD [address] [place] [address] Scheduled Orders Name Type Priority Associated Diagnoses Orde r Schedule XR L SPINE AP AND LATERAL Medical Imaging STAT Personal history of fall Contusion of back, unspecified laterality, initial encounter Expected: 12/08/2022, Expires: 01/09/2024 Scheduled Procedures Name Priority Associated Diagnoses Date/Ti me COLONOSCOPY FLEXIBLE PROXIMAL DIAGNOSTIC Recall Encounter for screening colonoscopy 02/02/2023 8:00 AM EDT Health Maintenance Due Date Last Done Comments DTaP,Tdap,and Td Vaccines (3 - Td or Tdap) 06/01/2021 06/01/2011, 12/03/2005 COLONOSCOPY-EVERY 5 YRS AGES 18-100 08/18/2022 08/18/2017, 06/04/2013, 11/13/2002 CKD PHOS USE SMARTSET 46592 11/23/202211/06, 05/26/2021, 11/27/2020, Additional history exists Influenza Vaccine (FLU shot) (#1) 2023 02/23/2022, 02/04/2021, 01/25/2020, Additional history exists GFR 06/04/2023 12/02/2022, 05/10, 11/23/2021, Additional history exists Albumin/Creatinine Ratio 06/15/2023 06/15/2022, 05/0 12/2018 Depression Screening, Annual for Pts 12 and Over 09/23/2023 09/22/2022 CKD HGB USE SMARTSET 05080 12/03/202312/02, 12/02/2022, 06/04/2022, Additional history exists Pneumococcal [...] this encounter Medical Devices Implanted Type Area Leasing Specialist Device Identifier Shelf Expiration Date Model / Serial / Lot Vitamesh Square 30cm X 30cm - [id number] Implanted:Qty: 1 on 03/26/2014 by Garima Conroy MD at [place] [facility] [place] N/A: Abdomen [employer] 02/05/2018 [id number] / / [id number] documented as of this encounter Visit Diagnoses Diagnosis Anticoagulated on Coumadin- Primary Encounter for therapeutic drug monitoring Personal history of fall Contusion of back, unspecified laterality, initial encounter Encounter for screening colonoscopy Special screening [...] Directives occurred with: Not Discussed Care Teams Manager Business Operations Relationship Specialty Start Date End Date Leno Salas MD [address] [place] [address] PCP - General Family Medicine 05/23/14 documented as of this encounter
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
--- OUTSIDE RECORDS SUMMARY | 2023-03-21 15:40 | External Medical Summary ---
Author Name Unknown Address Unknown Organization K01:LAB[facility]ATORY [facility] [place] - [address] [place] [facility] [place] [id number] Laboratory Report Ordering Provider Test Date Status FRANCIS MOLINA 12/02/2022 10:36:54 Final Observation Date Value Abnormality Reference (Units ) Status SYNC LEUKOCYTES IN BLOOD BY AUTOMATED COUNT 12/02/2022 10:36:54 5.35 4.00-10.80 (K/uL) Final Segs 12/02/2022 10:36:54 52.8 40.0-75.0 (%) Final Lymphs % 12/02/2022 10:36:54 25.2 18.0-42.0 (%) Final Monos 12/02/2022 10:36:54 18.1 Above high normal 1.0-11.0 (%) Final Eosinophils 12/02/2022 10:36:54 2.6 0.0-6.0 (%) Final Basos 12/02/2022 10:36:54 0.2 0.0-2.0 (%) Final Immature Granulocyte, Percent 12/02/2022 10:36:54 1.1 0.0-2.0 (%) Final Absolute Segs 12/02/2022 10:36:54 2.82 1.80-7.70 (K/uL) Final Lymphs, absolute 12/02/2022 10:36:54 1.35 1.00-4.80 (K/ul) Final Monos, Abs 12/02/2022 10:36:54 0.97 0.00-1.10 (K/uL) Final Eos, Abs 12/02/2022 10:36:54 0.14 0.00-0.70 (K/uL) Final Basos, Abs 12/02/2022 10:36:54 0.01 0.00-0.20 (K/uL) Final Immature Granulocytes, Number 12/02/2022 10:36:54 0.06 0.00-0.20 (K/uL) Final Performing Location [facility]ORY [facility] [place] - [address] [facility] [address]
--- OUTSIDE RECORDS SUMMARY | 2023-03-21 15:40 | External Medical Summary ---
Author Name Unknown Address Unknown Organization [id number]:[facility] [place] [address] [facility] [place] [address] Laboratory Report Ordering Provider Test Date Status FRANCIS MOLINA 12/02/2022 10:36:54 Final Observation Date Value Abnormality Reference (Units ) Status BUN 12/02/2022 10:36:54 21 Above high normal 6-20 (mg/dL) Final Creatinine 12/02/2022 10:36:54 1.3 Above high normal 0.6-1.2 (mg/dL) Final Glomerular filtration rate/1.73 sq M.predicted [Volume Rate/Area] in Serum, Plasma or Blood by Creatinine-based formula (CKD-EPI) 12/02/2022 10:36:54 58 Below low normal >=60 (mL/min) Final eGFR is calculated based on the CKD-EPI 2020 equation SODIUM 12/02/2022 10:36:54 140 135-146 (m mol/L) Final Potassium 12/02/2022 10:36:54 4.6 3.5-5.1 (m mol/L) Final Cl 12/02/2022 10:36:54 105 98-107 (mm ol/L) Final CO2 12/02/2022 10:36:54 25 22-32 (mmo l/L) Final Anion gap 12/02/2022 10:36:54 10 7-15 (mmol /L) Final Glucose 12/02/2022 10:36:54 155 Above high normal 70 -120 (mg/dL) Final Albumin 12/02/2022 10:36:54 4.3 3.8-5.0 (g /dL) Final AST (Aspartate aminotransferase) 12/02/2022 10:36:54 29 10-50 (U/L) Fin al Alk Phos 12/02/2022 10:36:54 73 35-130 (U/ L) Final Bilirubin, Total 12/02/2022 10:36:54 0.6 <=1 .2 (mg/dL) Final Calcium 12/02/2022 10:36:54 9.6 8.4-10.2 ( mg/dL) Final Protein 12/02/2022 10:36:54 7.2 6.0-8.3 (g /dL) Final ALT (Alanine aminotransferase) 12/02/2022 10:36:54 34 10-50 (U/L) Jakob barton Performing Location [facility] [place] [facility] [address] [facility] [address]
--- OUTSIDE RECORDS SUMMARY | 2023-03-21 15:40 | External Medical Summary ---
Author Name Unknown Address Unknown Organization K01:[facility] [place] - [facility] [address] [facility] [facility] [place] [address] Laboratory Report Ordering Provider Test Date Status FRANCIS MOLINA 12/02/2022 10:36:54 Final Observation Date Value Abnormality Reference (Units ) Status [place] light chains, Free, Serum 12/02/2022 10:36:54 74.74 Above high normal 3.30-19.40 (mg/L) Final Lambda light chains, free, Serum 12/02/2022 10:36:54 46.64 Above high normal 5.71-26.30 (mg/L) Final KAPPA LAMBDA [facility] RATIO 12/02/2022 10:36:54 1.60 0.26-1.65 Final Performing Location [facility] [place] - [address] [place] [address]
--- OUTSIDE RECORDS SUMMARY | 2023-03-21 15:40 | External Medical Summary | Summary of Care ---
Author Name Unknown Organization [facility] Address [address] [place] [address] Phone [phone] Care Team Providers Care Commission Associate Name Role Phone Leno Salas MD Primary Care Provider [phone]- [phone] Reason for Visit * Reason Comments Dosage Adjustment Via Phone (anticoag Cl inic) Encounter Details Date Type Department Care Team Description 12/03/2022 Anticoagulation Pharmacy, [place] [address] [place] [address] [facility] [address] [place], [place] [id number] PAF (paroxysmal atrial fibrillation) ([facility])* Allergies Active Allergy Reactions Severity Noted Date Comments Adhesive Tape 03/14/2003 Irritation / Rash Latex 07/14/2022 documented as of this encounter (statuses as of 12/03/2022) Medications Medication Sig Dispensed Refills Start Date [...] as of this encounter (statuses as of 12/03/2022) Active Problems Problem Noted Date Atrial fibrillation [...] ARIS (obstructive sleep apnea) 05/27/2020 D-CARE Research Other*[id number] 020 Last Assessment & Plan: D-Care is a pragmatic, randomized, 3-arm superiority trial comparing effectiveness of health-system based care vs. community-based dementia care. Manuscript Editor Mckayla Serna MD and Devin Loredo MD.; Coordinator Nella Boss RN [phone]. 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] this encounter Progress Notes * Richa Dinh, [facility] - 12/03/2022 7:57 AM EDT Medication Therapy Disease Management - Anticoagulation Patient: Williams Olguin : 1945 Contacts Type Contact Phone/Fax 12/03/2022 09:15 AM EDT Phone (Outgoing) Williams Olguin (Self) [phone] (M) Spoke to Patient Current Warfarin Dose As of 12/03/2022 Warfarin maintenance plan: 2.5 mg (2.5 mg x 1) every Mon, Wed, Fri; 1.25 mg (2.5 mg x 0.5) all other days Patient-Reported Symptoms: Patient Findings Negatives: Signs/symptoms of thrombosis, Signs/symptoms of bleeding, Change in health, Change in alcohol use, Change in activity, Upcoming invasive procedure, Missed doses, Extra doses, Change in medications, Change in diet/appetite, Bruising INR Result As of 12/03/2022 INR goal: 2.0-3.0 INR used for dosin.5 (12/02/2022) Warfarin Plan As of 12/03/2022 Full warfarin instructions: 2.5 mg every Mon, Wed, Fri; 1.25 mg all other days No change documented: Richa Dinh RPh Next INR check: 12/24/2022 Additional Dosing Information: Description Another dental procedure in the future- date TBD; will call with date once scheduled Repeat PT/INR in 3 week(s) Weekly dose: not changed Richa Dinh RPh Clinical Pharmacist 12/03/2022, 7:57 AM documented in this encounter Plan of Treatment Upcoming Encounters Date Type Specialty Care Team Description 12/24/2022 Anticoagulation Pharmacy [address] [address] 01/19/2023 Office Visit Otolaryngology Nikkie Guerrero PA-C [address] [place] [address] 02/02/2023 Hospital Encounter Endoscopy Astrid Henderson MD [address] [place] [address] 02/02/2023 Surgery Endoscopy Astrid Henderson MD [address] [place] [address] COLONOSCOPY FLEXIBLE PROXIMAL DIAGNOSTIC 03/24/2023 Cardiac Studies [facility]iology [facility] [address] [place] [address] 04/08/2023 Office Visit Family Medicine Leno Salas MD [address] [place] [address] 05/24/2023 Office Visit Dermatology Elsie Klein PA-C [address] [place] [address] [place] [address] 06/07/2023 Laboratory Laboratory [place], [address] [place] [address] 06/07/2023 Office Visit Hematology Oncology Stuart Santizo MD [address] [place] [address] Scheduled Procedures Name Priority Associated Diagnoses Date/Ti me COLONOSCOPY FLEXIBLE PROXIMAL DIAGNOSTIC Recall Encounter for screening colonoscopy 02/02/2023 8:00 AM EDT Health Maintenance Due Date Last Done Comments DTaP,Tdap,and Td Vaccines (3 - Td or Tdap) 06/01/2021 06/01/2011, 12/03/2005 COLONOSCOPY-EVERY 5 YRS AGES 18-100 08/18/2022 08/18/2017, 06/04/2013, 11/13/2002 CKD PHOS USE SMARTSET 88606 11/23/202211/06, 05/26/2021, 11/27/2020, Additional history exists Influenza Vaccine (FLU shot) (#1) 2023 02/23/2022, 02/04/2021, 01/25/2020, Additional history exists GFR 06/04/2023 12/02/2022, 05/10, 11/23/2021, Additional history exists Albumin/Creatinine Ratio 06/15/2023 06/15/2022, 12/2018 Depression Screening, Annual for Pts 12 and Over 09/23/2023 09/22/2022 CKD HGB USE SMARTSET 30916 12/03/202312/02, 12/02/2022, 06/04/2022, Additional history exists Pneumococcal [...] this encounter Medical Devices Implanted Type Area Funeral Arranger Device Identifier Shelf Expiration Date Model / Serial / Lot Vitamesh Square 30cm X 30cm - [id number] Implanted:Qty: 1 on 03/26/2014 by Garima Conroy MD [place] [facility] [place]: Abdomen [employer] 02/05/2018 [id number] / / [id number] documented as of this encounter Visit Diagnoses [...] Directives occurred with: Not Discussed Care Teams Commission Associate Relationship Specialty Start Date End Date Leno Salas MD [address] [place] [address] PCP - General Family Medicine 05/23/14 documented as of this encounter
--- OUTSIDE RECORDS SUMMARY | 2023-03-21 15:40 | External Medical Summary ---
Author Name Unknown Address Unknown Organization K01:LABORATORY [facility] [place] - [address] [place] [address] Laboratory Report Ordering Provider Test Date Status SHAYLEE CHISHOLM 12/02/2022 10:36:54 Final Observation Date Value Abnormality Reference (Units ) Status Parathyrin.intact [Mass/volume] in Serum or Plasma 12/02/2022 10:36:54 38 15-65 (pg/mL) Final Performing Location LAB[facility]ATORY [facility] [place] - [address] [place] [address]
--- OUTSIDE RECORDS SUMMARY | 2023-03-21 15:40 | External Medical Summary ---
Author Name Unknown Address Unknown Organization K01:[facility] [place] [address] [facility] [address] [facility] [address] Laboratory Report Ordering Provider Test Date Status FRANCIS MOLINA 12/02/2022 10:36:54 Final Observation Date Value Abnormality Reference (Units ) Status WBC, Total 12/02/2022 10:36:54 5.35 4.00-10.80 (K/uL) Final RBC 12/02/2022 10:36:54 4.08 4.50-5.25 (M/uL) Final Hemoglobin 12/02/2022 10:36:54 13.9 Below low normal 14.0-16.8 (g/dL) Final HCT 12/02/2022 10:36:54 42.3 40.0-48.4 (%) Final MCV 12/02/2022 10:36:54 103.7 82.0-99.5 (fL) Final MCH 12/02/2022 10:36:54 34.1 27.0-34.0 (pg) Final MCHC 12/02/2022 10:36:54 32.9 32.0-36.0 (g/dL) Final RDW 12/02/2022 10:36:54 12.8 11.5-15.5 (%) Final Platelets 12/02/2022 10:36:54 202 140-400 (K/uL) Final MPV 12/02/2022 10:36:54 13.8 6.6-11.1 (fL) Final Nucleated erythrocytes/100 leukocytes [Ratio] in Blood by Automated count 12/02/2022 10:36:54 0 <=0 (/100 WBCs) Final Performing Location [facility]ORY [facility] [place] - [address] [place] [address]
--- OUTSIDE RECORDS SUMMARY | 2023-03-21 15:40 | External Medical Summary ---
Author Name Unknown Address Unknown Organization K01:LAB[facility]ATORY [facility] - [address] [place] [address] Laboratory Report Ordering Provider Test Date Status FRANCIS MOLINA 12/02/2022 10:36:54 Final Observation Date Value Abnormality Reference (Units ) Status IgG 12/02/2022 10:36:54 1775 Above high normal 70 0-1600 (mg/dL) Final IgA 12/02/2022 10:36:54 353 70-400 (mg /dL) Final IgM 12/02/2022 10:36:54 149 40-230 (mg /dL) Final Performing Location LABORATORY [facility] - [address] [place] [address]
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
--- OUTSIDE RECORDS SUMMARY | 2023-03-21 15:40 | External Medical Summary ---
Author Name Unknown Address Unknown Organization K01:LABORATORY [facility] - [address] [place] [address] Laboratory Report Ordering Provider Test Date Status ROGER CARTWRIGHT 12/02/2022 10:37:23 Final Warfarin Therapy
INR: 2 .0-3.0 conventional anticoagulation
INR: 2.5- 3.5 high intensity anticoagulation Observation Date Value Abnormality Reference (Units ) Status PT 12/02/2022 10:37:23 27.1 Above high normal 11 .6-15.2 (seconds) Final INR 12/02/2022 10:37:23 2.5 Above high normal 0. 8-1.2 Final Performing Location LAB[facility]ORY [facility] - [address] [place] [address]
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
--- OUTSIDE RECORDS SUMMARY | 2023-03-21 15:41 | External Medical Summary ---
Author Name Unknown Address Unknown Organization : Laboratory Report Ordering Provider Test Date Status ROGER CARTWRIGHT 11/23/2022 08:58:10 Final Therapeutic ranges for non-o perative patients:
Prophylaxsis/treatment of DVT: (Range:2.0-3.0)
Treatment of pulmonary embolism:(Range:2.0-3.0)
Prevention of systemic embolism from:
-tissue heart valves
-acute myocardial infarction
-valvular heart disease
-atrial fibrillation
(Range: 2.0-3.0)
Mechanical prosthetic valves: (Range: 2.5-3.5) Observation Date Value Abnormality Reference (Units ) Status INR in Capillary blood by Coagulation assay 11/23/2022 08:58:10 2.6 (INR) Final Performing Location
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
--- OUTSIDE RECORDS SUMMARY | 2023-03-21 15:42 | External Medical Summary ---
Author Name Unknown Address Unknown Organization : Laboratory Report Ordering Provider Test Date Status G[facility]BIEROGER 11/05/2022 11:32:12 Final Therapeutic ranges for non-o perative patients:
Prophylaxsis/treatment of DVT: (Range:2.0-3.0)
Treatment of pulmonary embolism:(Range:2.0-3.0)
Prevention of systemic embolism from:
-tissue heart valves
-acute myocardial infarction
-valvular heart disease
-atrial fibrillation
(Range: 2.0-3.0)
Mechanical prosthetic valves: (Range: 2.5-3.5) Observation Date Value Abnormality Reference (Units ) Status INR in Capillary blood by Coagulation assay 11/05/2022 11:32:12 1.1 (INR) Final Performing Location
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
--- OUTSIDE RECORDS SUMMARY | 2023-03-21 15:42 | External Medical Summary ---
Author Name Unknown Address Unknown Organization : Laboratory Report Ordering Provider Test Date Status ROGER CARTWRIGHT 11/12/2022 14:55:05 Final Therapeutic ranges for non-o perative patients:
Prophylaxsis/treatment of DVT: (Range:2.0-3.0)
Treatment of pulmonary embolism:(Range:2.0-3.0)
Prevention of systemic embolism from:
-tissue heart valves
-acute myocardial infarction
-valvular heart disease
-atrial fibrillation
(Range: 2.0-3.0)
Mechanical prosthetic valves: (Range: 2.5-3.5) Observation Date Value Abnormality Reference (Units ) Status INR in Capillary blood by Coagulation assay 11/12/2022 14:55:05 1.7 (INR) Final Performing Location
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
--- OUTSIDE RECORDS SUMMARY | 2023-03-21 15:43 | External Medical Summary ---
Author Name Unknown Address Unknown Organization : Laboratory Report Ordering Provider Test Date Status ROGER CARTWRIGHT 09/22/2022 11:29:55 Final Therapeutic ranges for non-o perative patients:
Prophylaxsis/treatment of DVT: (Range:2.0-3.0)
Treatment of pulmonary embolism:(Range:2.0-3.0)
Prevention of systemic embolism from:
-tissue heart valves
-acute myocardial infarction
-valvular heart disease
-atrial fibrillation
(Range: 2.0-3.0)
Mechanical prosthetic valves: (Range: 2.5-3.5) Observation Date Value Abnormality Reference (Units ) Status INR in Capillary blood by Coagulation assay 09/22/2022 11:29:55 2.2 (INR) Final Performing Location
[2023-03-21] MEDS: ATORVASTATIN 40 MG TAB PO SCH (20:03)
[2023-03-21] MEDS: SERTRALINE HCL 50 MG TABLET PO SCH (20:03)
[2023-03-22] MEDS: ACETAMINOPHEN 325 MG TAB PO SCH ×3 (05:33→20:11)
[2023-03-22] MEDS: CETIRIZINE HCL 10 MG TABLET PO SCH (08:38)
[2023-03-22] MEDS: MAGNESIUM OXIDE 400 MG TAB PO SCH (08:38)
[2023-03-22] MEDS: FINASTERIDE 5 MG TAB PO SCH (08:38)
[2023-03-22] MEDS: ASPIRIN 81 MG ECTAB PO SCH (08:38)
[2023-03-22] MEDS: FERROUS SULFATE 325 MG TAB PO SCH (08:38)
[2023-03-22] MEDS: SOTALOL HCL 80 MG TAB PO SCH ×2 (08:39→20:11)
[2023-03-22] MEDS: OXYBUTYNIN CHLORIDE XL 5 MG TABCR PO SCH (08:39)
[2023-03-22] MEDS: MEMANTINE HCL 10 MG TAB PO SCH ×2 (08:39→20:11)
[2023-03-22] MEDS: FLUTICASONE PROPIONATE NA SPR 16 GM BTL SCH (08:39)
[2023-03-22] MEDS: MULTIVITAMIN TAB PO SCH (08:39)
[2023-03-22] MEDS: ZAFIRLUKAST PO SCH ×2 (08:40→20:11)
[2023-03-22] MEDS: TAMSULOSIN HCL 0.4 MG CAP PO SCH (08:40)
[2023-03-22] MEDS: FLUTICASONE/VILANTEROL 100/25MCG 14 PUFFS/INHALER INH SCH (09:05)
[2023-03-22] MEDS: DICLOFENAC SOD 1% GEL 100 GM TUBE EXT SCH ×4 (09:09→20:11)
[2023-03-22 09:45] LABS: INR 3.6 (0.9-1.1); Prothrombin Time 36.2 Seconds (9.0-12.0)
--- NOTE | 2023-03-22 10:52 | Orthopedic Consultation ---
Date of Consultation March 22, 2023 Assessment & Plan (1) Right knee pain: 78-year-old white male with history of right knee pain. X-rays continue to remain benign. Dr. Andrews reviewed films with me this morning and did not see any types of loosening and/or fracture. After discussing the case with the admitting team, the patient is increasing his ambulation abilities. I believe that some of his neuropathy may possibly be causative for recent falls that he has had and could contribute to his left knee buckling. Although there is no obvious acute changes noted with his lumbar spine at this time. His exam is fairly benign. I doubt infection at this time. I do not believe an aspiration is warranted at this time. Most likely hemarthrosis secondary to previous fall. Patient's family states that the swelling is getting better. I also do not believe that patient warrants for an injection of steroid at this time. Patient was notably on a steroid taper prescribed by Dr. Andrews earlier in the month which did not seem to help. Family states that he was scheduled for a bone scan to rule out loosening of the right TKA prosthesis however he was thusly admitted and this was held up. White count is normal, CRP is also within normal limits and ESR is pending. In speaking with Elsie DAUGHERTY today, the patient has progressed well with his physical therapy and may not be a candidate for [facility] etc. They will try to see if he will be approved through his insurance to go to [facility] to further his rehabilitation. We will also continue to plan to have him do a three-phase bone scan on the right knee. This can be done either while here in the hospital or done as an outpatient. Once the bone scan is performed, he can follow-up with Dr. Andrews's office to review. Continue diclofenac gel to the right knee. Patient may also do intermittent heat to the right knee as well. Ambulate as tolerated. Continue physical therapy. Continue to use assistive device as needed. Follow-up with Dr. Andrews in the near future to discuss bone scan imaging. History of Present Illness Reason for Consultation: Right knee pain Attending Physician: Wild Garza MD History of Present Illness Patient is a 78-year-old male who was admitted to the hospital with ambulatory dysfunction. Patient has a history of L1 burst fracture and also history of bilateral total knee arthroplasties in the past. In speaking with the admitting team, the patient's been progressing with his physical therapy and doing better with his ambulation. However he continues to complain of right knee pain. Patient has been seen by [facility] spine team and has found no new evidence of problems with the lumbar spine. Patient is accompanied by family. He appears comfortable at this time is answering questions appropriately. Family states that he does have some short-term memory loss. Patient's family states that he was seen by Dr. Andrews at the beginning of this month. The patient had apparently fallen approximately 1 month ago and was having right knee pain. Family states that he had also fallen several times prior to this in the past. Patient does have a history of neuropathy. His right knee pain continued to progress and he was seen in the office by Dr. Andrews. X-rays were taken and found to be no evidence of loosening of the components. Patient did have his right knee replaced in 2012 and subsequently needed a polyethylene bearing change of the right knee due to laxity which was done in 2018. The patient denies the knee giving out. Family does state that he does on occasion have the left knee give out. He denies pain in the left knee. Currently he states that he has no pain with ambulation but has pain with getting in and out of bed. X-rays were taken of the right knee during this stay and showed a mild effusion of the right knee but again no obvious fractures an d/or loosening of the prosthesis. We have been asked to see him for his right knee pain. Allergies Allergy/AdvReac Type Severity Reaction Status Date / Time adhesive Allergy Intermediate SKIN Verified 03/17/23 16:20 IRRITATION WITH TAPE latex Allergy Intermediate Rash Verified 03/17/23 16:20 Home Medications Medication Instructions Recorded Confirmed Type atorvastatin 40 mg tablet 80 mg PO QPM #0 tabs 12/03/15 03/17/23 History fluticasone propionate 50 2 spray intranasal DAILY ##0 12/03/15 03/17/23 History mcg/actuation nasal spray,suspension cetirizine 10 mg tablet (Zyrtec) 10 mg PO QAM #0 tabs 08/16/17 03/17/23 History ferrous sulfate 325 mg (65 mg 325 mg PO QAM ##0 08/16/17 03/17/23 History iron) tablet magnesium 250 mg tablet 250 mg PO QAM ##0 08/16/17 03/17/23 History sertraline 100 mg tablet 150 mg PO QPM #0 tabs 08/16/17 03/17/23 History sotalol 80 mg tablet 80 mg PO BID 90 days #180 tabs 11/07/17 03/17/23 History dwswrwzradxu-ahq-ajcin acid-vit 1 tab PO QAM 02/10/18 03/17/23 History K-lycop 400 mcg-20 mcg-370 mcg tablet (Men's 50 Plus Daily Formula) ofloxacin 0.3 % ear drops 4 drp otic (ear) WK 02/10/18 03/17/23 History walker #1 ea 07/28/20 02/25/23 Rx aspirin 81 mg chewable tablet 81 mg PO DAILY 08/23/22 03/17/23 History memantine 10 mg tablet 10 mg PO BID #180 tabs 09/13/22 03/17/23 Rx dutasteride 0.5 mg capsule 0.5 mg PO DAILY #90 caps 09/23/22 03/17/23 Rx solifenacin 10 mg tablet (Vesicare) 10 mg PO DAILY #90 tabs 09/23/22 03/17/23 Rx tamsulosin 0.4 mg capsule 0.4 mg PO DAILY #90 caps 09/23/22 03/17/23 Rx albuterol sulfate 90 mcg/actuation 2 puff inhalation Q6H PRN 03/17/23 03/17/23 History aerosol inhaler Shortness Of Breath Or Wheezing fluticasone propionate 230 2 puff inhalation AMPM 03/17/23 03/17/23 History mcg-salmeterol 21 mcg/actuation HFA inhaler (Advair HFA) faynbxsd-jgc-iyddx4 250 mg-dha 90 1 cap PO QAM 03/17/23 03/17/23 History mg-epa 160 vx-nyfn-ozoe-zeax capsule (Ocuvite Adult 50 Plus) zafirlukast 20 mg tablet 10 mg PO BID 03/17/23 03/17/23 History warfarin 2.5 mg tablet 1.25 mg PO SUTUTH 03/21/23 03/21/23 History warfarin 2.5 mg tablet 2.5 mg PO MOWEFRSA 03/21/23 03/21/23 History Patient History Medical History Benign prostatic hyperplasia with urinary obstruction Dementia Adjustment disorder with depressed mood Chronic cerebral ischemia Idiopathic peripheral neuropathy Sensory ataxia Thrombocytopenia CHRONIC BASELINE LOW 100'S Obesity Depression PAF (paroxysmal atrial fibrillation) Bifascicular bundle branch block CHRONIC DATING BACK TO AT LEAST 2017 Neuropathy BILATERAL LEGS/FEET Anemia Dementia "MILD" BPH (benign prostatic hyperplasia) Hearing deficit Hyperlipidemia Hypertension Deep vein thrombosis LLE DVT 1995; IVC FILTER PLACED Pacemaker IMPLANTED 09/14/17 2/ [employer]/SSS [employer]; LAST CHECKED 02/16/18 Transient ischemic attack (TIA) 2009 Pulmonary embolism 2016- ON WARFARIN Afib Surgical History Hx of hemorrhoidectomy History of permanent cardiac pacemaker placement IMPLANTED 09/14/17 History of elbow surgery RIGHT ELBOW SURGERY 11/2017 S/P MECHANICAL FALL H/O foot surgery LEFT S/P IVC filter 1995 History of total knee replacement BILATERAL History of cystoscopy History of colonoscopy History of herniorrhaphy INCISIONAL HERNIA REPAIR History of cholecystectomy OPEN History of nasal septoplasty History of cardiac cath 2009= NO STENTS Family History Father COPD (chronic obstructive pulmonary disease) Hypertension Mother Hodgkin lymphoma Social History Smoking Status: Former smoker Cigarettes Per Day: QUIT 45 YEARS AGO; Second Hand Exposure: No; Do You Dip or Chew Tobacco: No; Hx Alcohol Use: No Hx Substance Use: No Preferred Language: Nepali Communication Ability: Effective Visual Impairment: No Limitations 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 He is alert and oriented to person and place and answers questions appropriately. He is in no acute distress. He is pleasant and cooperative. On examination of his right knee he has a well-healed incision from previous TKA. He has a mild effusion noted on the right knee compared to the left. I am able to palpate the right knee without causing him any discomfort. The effusion is not tense. There is no erythema there and there is no overt warmth comparing to the left knee. Patient has full extension of the right knee and I can take him through active and passive range of motion to approximate 100 degrees without discomfort. His collaterals are stable. He does not have any instability anterior to posterior. Comparing to the left knee, exam shows sl ight laxity with the lateral collateral but otherwise the left knee is stable. Neuropathy noted of the lower extremities however patient does have good strength with dorsiflexion and plantarflexion Results & Data Vital Signs (Past 12 Hours) Vital Signs Temp Pulse Resp BP Pulse Ox O2 Del Method 03/22/23 07:53 36.7 C 68 14 132/79 93 Room Air 03/22/23 07:20 Room Air Diagnostic Findings Patient: BRYAN WHITFIELD Admit Date: 03/17/23 MR#: [id number] Address1: [address] [place] [address] Acct ID:[id number] Address2: [place] [address] Date: 1945 [facility] Zip: [place] [address] Age: 78 Location: 3W Sex: M Room/Bed: [address] Phy: Wild Garza MD Diagnosis: FALLS, LOW BACK PAIN [place] Phy: Leno Salas MD Service Date: 03/19/23 Fam Phy: Interpreting Phy: Jed Kwon MDAdmit Phy: Carlos Engel MD Ordering Phy: Wild Garza MD cc: ~ XR knee RT 1 or 2V routine CLINICAL HISTORY: Right knee swelling and pain. COMPARISON: Right knee radiographs March 15, 2018. FINDINGS: Alignment of the right knee arthroplasty is anatomic. There is no periprosthetic fracture or lucency. A moderate size joint effusion is present. There is also pre and infrapatellar soft tissue swelling. IMPRESSION: 1. Intact total right knee arthroplasty. No periprosthetic fracture or lucency. 2. Moderate size joint effusion. Pre and infrapatellar soft tissue swelling. ACT 112: Negative or not required by law. Electronically signed by: Jed Kwon M.D. 03/19/2023 12:41 PM
--- NOTE | 2023-03-22 15:11 | Hospitalist Progress Note ---
Date of Service March 22, 2023 Assessment & Plan (1) Ambulatory dysfunction: (2) Frequent falls: (3) Chronic knee pain after total replacement of both knee joints: (4) Compression fracture of L1 lumbar vertebra: (5) Idiopathic peripheral neuropathy: (6) Sensory ataxia: (7) Chronic cerebral ischemia: (8) Vascular dementia: (9) PAF (paroxysmal atrial fibrillation): Plan This is a 78-year-old male who has a significant past medical history of vascular dementia, HTN, HLD, ARIS, moderate persistent asthma, PAF on warfarin, sick sinus syndrome, permanent pacemaker in place, chronic DVT, GERD, chronic ITP and CKD stage III presents to ED secondary to recent fall and inability to care for self at home. Ambulatory dysfunction Frequent falls Chronic knee pain after total replacement of both knee joints, and right knee exchange Subacute compression fracture of L1 with 30% vertebral volume loss Idiopathic peripheral neuropathy with sensory ataxia Patient presented from home with ambulatory dysfunction and frequent falls Lumbar CT and lumbar MRI - subacute burst type compression fracture of L1 present, similar to 12/2022 Suspect lower extremity weakness as result of chronic bilateral knee pain as well as peripheral neuropathy and sensory ataxia Orthopedic spine evaluated - Dr. Walker recommends mobilizing with PT, appropriate medication management, possible placement. Does not have anything that would be of an operative nature. Ortho consulted due to right knee pain and right knee effusion. Right knee XR shows moderate size joint effusion; doubt infection - afebrile, no leukocytosis, minimal pain with movement. Case discussed with Artemio Freitas PA-C. Patient follows with Dr. Andrews, was planned for outpatient 3 phase bone scan of right knee. Awaiting auth for [facility]. If patient remains in the hospital tomorrow, will obtain bone scan while inpatient and patient can follow up with Dr. Andrews. PAF TBS status post PPM Continue sotalol and warfarin therapy INR 3.6 Outpatient regimen is 1.25 mg Tuesday, , Tuesday and 2.5 mg all other days Hold Coumadin for now. ARIS CPAP at bedtime Moderate persistent asthma No acute exacerbation Chronic, stable Continue inhalers CKD stage III Chronic, stable Baseline creatinine 1-1.2 Follows [facility], Dr. Willoughby History of DVT/PE On warfarin [place] filter in place Vascular dementia Continue supportive care Namenda Chronic, stable, A&Ox3 at baseline, difficulty with short term DVT PROPHYLAXIS On Coumadin Dispo -patient and requesting rehab, reevaluated by PT who is now recommending rehab, auth pending for [facility] following Patient seen in collaboration with Dr. Garza. Admission and Anticipated Discharge Date Admission Date: March 17, 2023 Supervising Physician Co-Signing Physician Notes Patient seen and examined at bedside. Discussed with your provider. Patient to have bone scan tomorrow a.m. as per recommendation by orthopedic Discharge to rehab when placement available. Subjective Follow-up for ambulatory dysfunction, chronic bilateral knee pain. Patient seen and examined. Working with therapy. Observed ambulating in the hallway with walker. Patient reports minimal right knee pain with standing. No chest pain or shortness of breath. Denies lightheadedness and dizziness. Physical Exam Constitutional: WD/WN, vitals as above no acute distress Respiratory: normal respiratory effort, lungs clear to auscultation Cardiovascular: Rate/Rhythm: regular rate and regular rhythm Vessels: normal peripheral pulses Extremities: no edema Gastrointestinal (Abdomen): Percussion/Palpation: abdomen soft; abdomen nontender Skin: no rashes, warm and dry Chronic venous changes BLE Neurologic: no focal motor deficits Psychiatric: A+Ox3, euthymic affect Results & Data Results & Data Vital Signs (Past 12 Hours) Vital Signs Temp Pulse Resp BP Pulse Ox O2 Del Method 03/22/23 11:11 36.8 C 70 12 112/75 92 Room Air 03/22/23 07:53 36.7 C 68 14 132/79 93 Room Air 03/22/23 07:20 Room Air
[2023-03-22] MEDS: ATORVASTATIN 40 MG TAB PO SCH (20:11)
[2023-03-22] MEDS: SERTRALINE HCL 50 MG TABLET PO SCH (20:11)
[2023-03-23] MEDS: ACETAMINOPHEN 325 MG TAB PO SCH ×3 (05:49→20:23)
[2023-03-23 07:02] LABS: INR 2.8 (0.9-1.1); Prothrombin Time 29.2 Seconds (9.0-12.0)
[2023-03-23] MEDS: FLUTICASONE/VILANTEROL 100/25MCG 14 PUFFS/INHALER INH SCH (08:36)
[2023-03-23] MEDS: MEMANTINE HCL 10 MG TAB PO SCH ×2 (08:37→20:22)
[2023-03-23] MEDS: FLUTICASONE PROPIONATE NA SPR 16 GM BTL SCH (08:37)
[2023-03-23] MEDS: ZAFIRLUKAST PO SCH ×2 (08:37→20:21)
[2023-03-23] MEDS: CETIRIZINE HCL 10 MG TABLET PO SCH (08:38)
[2023-03-23] MEDS: MULTIVITAMIN TAB PO SCH (08:38)
[2023-03-23] MEDS: ASPIRIN 81 MG ECTAB PO SCH (08:38)
[2023-03-23] MEDS: TAMSULOSIN HCL 0.4 MG CAP PO SCH (08:39)
[2023-03-23] MEDS: MAGNESIUM OXIDE 400 MG TAB PO SCH (08:39)
[2023-03-23] MEDS: FINASTERIDE 5 MG TAB PO SCH (08:39)
[2023-03-23] MEDS: SOTALOL HCL 80 MG TAB PO SCH ×2 (08:39→20:22)
[2023-03-23] MEDS: DICLOFENAC SOD 1% GEL 100 GM TUBE EXT SCH ×4 (08:40→20:20)
[2023-03-23] MEDS: FERROUS SULFATE 325 MG TAB PO SCH (08:40)
[2023-03-23] MEDS: OXYBUTYNIN CHLORIDE XL 5 MG TABCR PO SCH (08:41)
--- NOTE | 2023-03-23 15:02 | Nuclear Medicine Report ---
NM bone 3 phase ltd CLINICAL HISTORY: right knee pain TECHNIQUE: Following the intravenous injection of 26 mCi of Tc-99m labeled MDP, immediate flow and bl ood pooling images of the bilateral knees were obtained. Additional selected static images of the erica ateral knees were obtained after two hours. Comparison: Comparison is made to knee radiographs 03/19/2023 FINDINGS: There is asymmetrically increased uptake in the anterior right knee on flow and pool series . On delayed imaging, increased uptake is seen in the proximal aspect of the medial condyle of the fe mur. In particular, no focal areas of increased activity are seen to suggest either cellulitis or ost eomyelitis. IMPRESSION: Focal uptake is seen in the medial condyle of the femur which may reflect loosening or other reactive changes. ACT 112: Negative or not required by law. Electronically signed by: Blas Naqvi M.D. 03/23/2023 3:00 PM
--- NOTE | 2023-03-23 19:02 | Hospitalist Progress Note ---
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 Patient presented from home with ambulatory dysfunction and frequent falls. Ambulatory dysfunction Frequent falls Chronic knee pain after total replacement of both knee joints, and right knee exchange Subacute compression fracture of L1 with 30% vertebral volume loss Idiopathic peripheral neuropathy with sensory ataxia --Lumbar CT and lumbar MRI - subacute burst type compression fracture of L1 present, similar to 12/2022 --Bone Scan:Focal uptake is seen in the medial condyle of the femur which may reflect loosening or other reactive changes. --Check Vit B12 levels -- Fall precautions PT OT --Orthopedic spine evaluated - Dr. Walker recommends mobilizing with PT, appropriate medication management, possible placement. Does not have anything that would be of an operative nature. Ortho consulted due to right knee pain and right knee effusion. Right knee XR shows moderate size joint effusion; doubt infection - afebrile, no leukocytosis, minimal pain with movement. Case discussed with Artemio Freitas PA-C by prior provider. Patient follows with Dr. Andrews -- We will discuss bone scan results with Ortho Needs follow-up with orthopedics upon discharge Consider rehab placement if accepted PAF TBS status post PPM Continue sotalol and warfarin therapy INR 3.6> 2.8 Outpatient regimen is 1.25 mg Tuesday, , Tuesday and 2.5 mg all other days Resume Coumadin tomorrow ARIS CPAP at bedtime Moderate persistent asthma No acute exacerbation Chronic, stable Continue inhalers CKD stage III Chronic, stable Baseline creatinine 1-1.2 Follows [facility], Dr. Willoughby History of DVT/PE On warfarin [place] filter in place INR therapeutic Vascular dementia Continue supportive care Namenda Chronic, stable, A&Ox3 at baseline, difficulty with short term DVT Px INR therapeutic Resume Coumadin as able Disposition Rehab if accepted Admission and Anticipated Discharge Date Admission Date: March 17, 2023 Subjective Patient is seen and examined at bedside States having ambulatory dysfunction associated with balance issues Offers no other complaints Denies any chest pain, dyspnea, dizziness, nausea, vomiting, abdominal pain Discussed with patient's family at bedside Review of Systems Review of Systems: All systems reviewed & are unremarkable except as noted in Subjective Physical Exam Physical Exam: Physical Exam: Vitals signs as noted above General Appearance:Moderately built and nourished, no apparent distress Head: normocephalic, Atraumatic Eyes: normal inspection, EOMI Neck: supple, Trachea midline Respiratory/Chest: Normal breath sounds, CTA, No accessory muscle use Cardiovascular: S1, S2, No murmur Abdomen/GI:Soft, Non tender, Bowel sounds present Extremities/Musculoskeletal:normal inspection, no edema Neurologic/Psych:AAOX3, grossly no focal neurological deficits Skin: normal color, warm Results & Data Results & Data Vital Signs (Past 12 Hours) Vital Signs Temp Pulse Resp BP Pulse Ox O2 Del Method 03/23/23 15:34 36.9 C 80 18 125/81 90 Room Air 03/23/23 07:19 36.4 C L 63 18 121/76 94 Room Air
[2023-03-23] MEDS: ATORVASTATIN 40 MG TAB PO SCH (20:21)
[2023-03-23] MEDS: SERTRALINE HCL 50 MG TABLET PO SCH (20:22)
[2023-03-24] MEDS: ACETAMINOPHEN 325 MG TAB PO SCH ×2 (05:47→13:13)
[2023-03-24 08:56] LABS: INR 2.7 (0.9-1.1); Prothrombin Time 27.6 Seconds (9.0-12.0)
[2023-03-24] MEDS: MEMANTINE HCL 10 MG TAB PO SCH (09:00)
[2023-03-24] MEDS: SOTALOL HCL 80 MG TAB PO SCH (09:00)
[2023-03-24] MEDS: FERROUS SULFATE 325 MG TAB PO SCH (09:00)
[2023-03-24] MEDS: MULTIVITAMIN TAB PO SCH (09:00)
[2023-03-24] MEDS: CETIRIZINE HCL 10 MG TABLET PO SCH (09:00)
[2023-03-24] MEDS: ZAFIRLUKAST PO SCH (09:01)
[2023-03-24] MEDS: OXYBUTYNIN CHLORIDE XL 5 MG TABCR PO SCH (09:01)
[2023-03-24] MEDS: MAGNESIUM OXIDE 400 MG TAB PO SCH (09:01)
[2023-03-24] MEDS: FINASTERIDE 5 MG TAB PO SCH (09:01)
[2023-03-24] MEDS: FLUTICASONE PROPIONATE NA SPR 16 GM BTL SCH (09:01)
[2023-03-24] MEDS: ASPIRIN 81 MG ECTAB PO SCH (09:01)
[2023-03-24] MEDS: TAMSULOSIN HCL 0.4 MG CAP PO SCH (09:01)
[2023-03-24] MEDS: FLUTICASONE/VILANTEROL 100/25MCG 14 PUFFS/INHALER INH SCH (09:02)
[2023-03-24] MEDS: DICLOFENAC SOD 1% GEL 100 GM TUBE EXT SCH ×2 (09:02→13:13)
--- NOTE | 2023-03-24 14:17 | Hospitalist Progress Note ---
Date of Service March 24, 2023 Assessment & Plan (1) Ambulatory dysfunction: (2) Frequent falls: (3) Chronic knee pain after total replacement of both knee joints: (4) Compression fracture of L1 lumbar vertebra: (5) Idiopathic peripheral neuropathy: (6) Sensory ataxia: (7) Chronic cerebral ischemia: (8) Vascular dementia: (9) PAF (paroxysmal atrial fibrillation): Plan Patient is a 78 yr male who has a significant past medical history of vascular dementia, HTN, HLD, ARIS, moderate persistent asthma, PAF on warfarin, sick sinus syndrome, permanent pacemaker in place, chronic DVT, GERD, chronic ITP and CKD stage III presents to ED secondary to recent fall and inability to care for self at home. Patient presented from home with ambulatory dysfunction and frequent falls. Ambulatory dysfunction Frequent falls Chronic knee pain after total replacement of both knee joints, and right knee exchange Subacute compression fracture of L1 with 30% vertebral volume loss Idiopathic peripheral neuropathy with sensory ataxia --Lumbar CT and lumbar MRI - subacute burst type compression fracture of L1 present, similar to 12/2022 --Bone Scan:Focal uptake is seen in the medial condyle of the femur which may reflect loosening or other reactive changes. --Check Vit B12 levels -- Fall precautions PT OT --Orthopedic spine evaluated - Dr. Walker recommends mobilizing with PT, appropriate medication management, possible placement. Does not have anything that would be of an operative nature. Ortho consulted due to right knee pain and right knee effusion. Right knee XR shows moderate size joint effusion; doubt infection - afebrile, no leukocytosis, minimal pain with movement. Case discussed with Artemio Freitas PA-C by prior provider. Patient follows with Dr. Andrews -- Discussed with orthopedics Dr. Bear on 03/24/2023 regarding bone scan results. Recommends to follow-up as outpatient. Insurance denied rehab placement given improvement in physical activity Plan to be discharged home today Needs follow-up with orthopedics upon discharge PAF TBS status post PPM Continue sotalol and warfarin therapy INR 3.6> 2.8>2.7 Outpatient regimen is 1.25 mg Tuesday, , Tuesday and 2.5 mg all other days Resume Coumadin upon discharge Needs follow-up with Coumadin clinic upon discharge ARIS CPAP at bedtime Moderate persistent asthma No acute exacerbation Chronic, stable Continue inhalers CKD stage III Chronic, stable Baseline creatinine 1-1.2 Follows [facility], Dr. Willoughyb History of DVT/PE On warfarin [place] filter in place INR therapeutic Vascular dementia Continue supportive care Namenda Chronic, stable, A&Ox3 at baseline, difficulty with short term DVT Px INR therapeutic Resume Coumadin as able Disposition Home Admission and Anticipated Discharge Date Admission Date: March 17, 2023 Subjective Patient is seen and examined at bedside No new complaints Denies any chest pain, dyspnea, dizziness, nausea, vomiting, abdominal pain Discussed with patient's family at bedside Also discussed with orthopedics today Review of Systems Review of Systems: All systems reviewed & are unremarkable except as noted in Subjective Physical Exam Physical Exam: Physical Exam: Vitals signs as noted above General Appearance:Moderately built and nourished, no apparent distress Head: normocephalic, Atraumatic Eyes: normal inspection, EOMI Neck: supple, Trachea midline Respiratory/Chest: Normal breath sounds, CTA, No accessory muscle use Cardiovascular: S1, S2, No murmur Abdomen/GI:Soft, Non tender, Bowel sounds present Extremities/Musculoskeletal:normal inspection, no edema Neurologic/Psych:AAOX3, grossly no focal neurological deficits Skin: normal color, warm Results & Data Results & Data Vital Signs (Past 12 Hours) Vital Signs Temp Pulse Resp BP Pulse Ox O2 Del Method 03/24/23 07:06 36.4 C L 88 16 127/79 95 Room Air
--- NOTE | 2023-03-24 14:22 | Discharge Summary ---
Date of Service March 24, 2023 Admission HPI Per Admitting Provider This is a 78-year-old male who has a significant past medical history of vascular dementia, HTN, HLD, ARIS, moderate persistent asthma, PAF on warfarin, sick sinus syndrome, permanent pacemaker in place, chronic DVT, GERD, chronic ITP and CKD stage III presents to ED secondary to recent fall and inability to care for self at home. Patient's is at bedside who also helps elicit history. Over the last several months patient has had frequent falls. He falls approximately 5-7 times in a 1 week timeframe. This past week he has fallen 5 times and hit his head twice. He denies any injury or loss of consciousness. He states he falls due to, "losing his balance, knee pain and just general weakness." Of significance patient had a significant fall at the end of November where he was diagnosed with a L1 compression fracture. He had MRI in December. He was seen and evaluated by orthopedic spine down in [place] who initially was considering kyphoplasty but due to pain improvement recommend conservative measu res. also elicits that in regards to his back his pain has been improving over the last several weeks until his fall today. Patient fell this morning and was unable to get patient up. She states due to his persistent and worsening chronic bilateral knee pain that he is unable to push off his legs and get him up. He also follows neurology due to idiopathic peripheral neuropathy. He was tried on gabapentin 300 mg and this made him, "like motion." He then was reduced to 100 mg which she seemed to tolerate. At home he mostly uses Tylenol, ice as well as Voltaren gel for his knee pain. Of significance he has had bilateral knee replacements back in 2009 and a right knee exchange [place] [address] Andrews. He was to undergo a bone scan today due to persistent pain and normal x-rays, but unfortunately ended up in the ER. He denies bowel or bladder incontinence. He has not taken any of his medications today. He otherwise denies any recent illness, fever, chills, sweats, lightheadedness, dizziness, chest pain, shortness of breath, nausea, vomiting or abdominal pain. He otherwise has a good appetite. He is hard of hearing and due to vascular dementia has difficulty with short-term memory. In ED patient underwent repeat lumbar spine CT which again shows a possible subacute L1 burst fracture which appears similar to that of MRI from December 2022. Head CT and cervical spine CT without acute abnormality. [facility] and [facility] records thoroughly reviewed. Admission Exam Per Admitting Provider Constitutional: WD/WN, M, hard of hearing, vitals as above, NAD, sitting up in bed, pleasant, conversing easily Head: Normocephalic, Atraumatic Eyes: PERRL, conjunctivae normal, anicteric sclerae ENMT: external ear and nose normal, oropharynx normal Neck: trachea midline, no thyromegaly normal visual inspection Respiratory: normal respiratory effort, lungs clear to auscultation, no wheeze, rales, rhonchi. Normal insp/exp effort, no accessory muscle use Cardiovascular: RRR, no murmur, no edema., chronic b/l venous stasis changes Vessels: no JVD or carotid bruit Chest: normal inspection of chest pacer site noted Abdomen: normal bowel sounds, soft, nontender, no hepatosplenomegaly Musculoskeletal: no cyanosis or clubbing, extremities motor strength 5/5 Skin: no rashes, warm and dry normal turgor, L knee with mild excoriation but not redness Neurologic: PERRL, EOMI, accommodation nl, no face palsy, no dysarthria CN's II-XI intact bilaterally and moves all extremities Psychiatric: A+Ox3, euthymic affect Lymphatic: no cervical or axillary lymphadenopathy : deferred Principal Diagnosis Ambulatory dysfunction Frequent falls Chronic knee pain after total replacement of both knee joints, and right knee exchange Subacute compression fracture of L1 with 30% vertebral volume loss Idiopathic peripheral neuropathy with sensory ataxia Supratherapeutic INR Discharge Data Allergies Allergy/AdvReac Type Severity Reaction Status Date / Time adhesive Allergy Intermediate SKIN Verified 03/17/23 16:20 IRRITATION WITH TAPE latex Allergy Intermediate Rash Verified 03/17/23 16:20 Consultations 03/17/23 15:59 ED Decision to Admit Stat 03/17/23 17:31 Consult Orthopedic Spine Surgery Routine Consult Orthopedic Surgery Routine Procedures Performed Laboratory Results WBC 4.96 K/ul (4.8-10.8) 03/19/23 07:48 RBC 3.76 M/uL (4.70-6.10) L 03/19/23 07:48 Hgb 12.3 g/dl (14.0-18.0) L 03/19/23 07:48 Hct 37.8 % (42.0-52.0) L 03/19/23 07:48 MCV 100.5 fL (80.0-100.0) H 03/19/23 07:48 MCH 32.7 pg (25.0-34.0) 03/19/23 07:48 MCHC 32.5 g/dL (32.0-36.0) 03/19/23 07:48 RDW Std Deviation 50.7 fL (36.4-46.3) H 03/19/23 07:48 RDW Coeff of Cat 13.7 % (11.5-14.5) 03/19/23 07:48 Plt Count 205 K/uL (130-400) 03/19/23 07:48 MPV 12.6 fL (9.4-12.4) H 03/19/23 07:48 Immature Gran % (Auto) 0.3 % 03/17/23 14:40 Neut % (Auto) 60.4 % 03/17/23 14:40 Lymph % (Auto) 17.0 % 03/17/23 14:40 [place] % (Auto) 20.1 % 03/17/23 14:40 Eos % (Auto) 2.1 % 03/17/23 14:40 Baso % (Auto) 0.1 % 03/17/23 14:40 Neut # (Auto) 4.60 K/uL (1.40-6.50) 03/17/23 14:40 Lymph # (Auto) 1.29 K/uL (1.20-3.40) 03/17/23 14:40 [place] # (Auto) 1.53 K/uL (0.11-0.59) H 03/17/23 14:40 Eos # (Auto) 0.16 K/uL (0.00-0.50) 03/17/23 14:40 Baso # (Auto) 0.01 K/uL (0.00-0.20) 03/17/23 14:40 Immature Gran # (Auto) 0.02 K/uL (0.01-0.20) 03/17/23 14:40 ESR 62 mm/hr (0-20) H 03/22/23 08:39 PT 27.6 Seconds (9.0-12.0) H 03/24/23 07:53 INR 2.7 (0.9-1.1) H 03/24/23 07:53 Sodium 140 mmol/L (136-145) 03/19/23 07:48 Potassium 4.0 mmol/L (3.5-5.1) 03/19/23 07:48 Chloride 110 mmol/L (98-107) H 03/19/23 07:48 Carbon Dioxide 25 mmol/L (21-32) 03/19/23 07:48 Anion Gap 5 (3-11) 03/19/23 07:48 BUN 18 mg/dl (6-23) 03/19/23 07:48 Creatinine 0.95 mg/dl (0.6-1.4) 03/19/23 07:48 Est Cr Clr Drug Dosing 82.6 ml/min 03/19/23 07:48 Est GFR ( Amer) 89.8 ml/min 03/19/23 07:48 Est GFR (Non-Af Amer) 77.4 ml/min 03/19/23 07:48 BUN/Creatinine Ratio 18.9 (10-20) 03/19/23 07:48 Glucose 128 mg/dl (70-99(Fasting)) H 03/19/23 07:48 Calcium 9.4 mg/dl (8.6-10.3) 03/19/23 07:48 Magnesium 2.1 mg/dl (1.7-2.4) 03/18/23 07:08 Total Bilirubin 1.3 mg/dl (0.2-1.0) H 03/17/23 14:40 AST 25 U/L (13-39) 03/17/23 14:40 ALT 17 U/L (7-52) 03/17/23 14:40 Alkaline Phosphatase 105 U/L (34-104) H 03/17/23 14:40 C-Reactive Protein < 0.50 mg/dl (0-0.5) 03/22/23 08:39 Total Protein 7.9 gm/dl (6.0-8.3) 03/17/23 14:40 Albumin 4.2 gm/dl (3.4-5.0) 03/17/23 14:40 Globulin 3.7 gm/dl (2.5-4.0) 03/17/23 14:40 Albumin/Globulin Ratio 1.1 (0.9-2) 03/17/23 14:40 Vitamin B12 656 pg/ml (180-914) 03/24/23 07:53 TSH 2.156 uIu/ml (0.300-4.500) 03/17/23 14:40 Urine Color Yellow 03/17/23 14:48 Urine Appearance Cloudy (Clear) A 03/17/23 14:48 Urine pH 7.5 (4.5-7.5) 03/17/23 14:48 Ur Specific [employer] 1.013 (1.000-1.030) 03/17/23 14:48 Urine Protein Negative (Negative) 03/17/23 14:48 Urine Glucose (UA) Negative (Negative) 03/17/23 14:48 Urine Ketones Negative (Negative) 03/17/23 14:48 Urine Blood 1+ (Negative) H 03/17/23 14:48 Urine Nitrite Negative (Negative) 03/17/23 14:48 Urine Bilirubin Negative (Negative) 03/17/23 14:48 Urine Urobilinogen Negative (Negative) 03/17/23 14:48 Ur Leukocyte Esterase Negative (Negative) 03/17/23 14:48 Urine WBC (Auto) 1-5 /hpf (0-5) 03/17/23 14:48 Urine RBC (Auto) 0-4 /hpf (0-4) 03/17/23 14:48 U Hyaline Cast (Auto) 1-5 /lpf (0-5) 03/17/23 14:48 U Epithel Cells (Auto) 5-10 /lpf (0-5) H 03/17/23 14:48 Urine Bacteria (Auto) Negative (Negative) 03/17/23 14:48 Urine Crystals Not Reportable 03/17/23 14:48 Amorphous Sediment Present (None Prsent) A 03/17/23 14:[address] 03/17/23 14:30 CT cervical spine wo con CLINICAL HISTORY: 78 years-old Male with fall, worsening amb dysfunction, coumadin. Acute head and neck injury status post fall COMPARISON: Head CT of same day, CT cervical spine 06/27/2022 TECHNIQUE: Multiple axial CT images of the cervical spine were obtained without contrast. A dose lowering technique was utilized adhering to the principles of ALARA. FINDINGS: The visualized appearance of the bones. Multilevel changes are redemonstrated including severe disc space narrowing at C5-C6 and C6/C7 with moderate multilevel spondylotic spurring and moderate to severe facet arthrosis. Mild T2 and T3 superior endplate compression deformities without retropulsion appear chronic. No acute cervical spine fracture or subluxation identified. The cervical soft tissues appear unremarkable. Right mastoidectomy changes. The visualized lung apices appear clear. IMPRESSION: No acute cervical spine fracture or subluxation identified. ACT 112: Negative or not required by law. The above report was generated using voice recognition software. It may contain grammatical, syntax or spelling errors. Electronically signed by: Irwin Hu M.D. 03/17/2023 4:[address] 03/17/23 14:30 CT head/brain wo con CLINICAL HISTORY: fall, worsening amb dysfunction, coumadin Technique: Contiguous axial CT images of the head were acquired from the base of the skull to the vertex without intravenous contrast administration. Images were viewed in brain, subdural and bone windows. Automated dose lowering techniques and/or adjustment according to patient size were utilized for this exam. Comparison: Comparison is made to CT head 06/27/2022 Findings: Areas of decreased attenuation are present in the periventricular and subcortical white matter bilaterally consistent with small vessel ischemic disease. Generalized cerebral atrophy with commensurate enlargement of the ventricles, sulci, and cisterns is also present. There is no acute intracranial hemorrhage or evidence of acute territorial infarction. No shift of the midline structures, mass effect, or extra-axial abnormalities are shown. Atherosclerotic calcifications are present in the intracranial segments of the internal carotid arteries. Soft tissue thickening seen in the sinuses most prominently in the right frontal sinuses and ethmoid air cells. The orbits appear normal. There are no acute fractures of the calvaria or scalp swelling. Impression: No acute intracranial hemorrhage, no evidence of acute territorial infarction or other acute intracranial disease process. ACT 112: Negative or not required by law. Electronically signed by: Blas Naqvi M.D. 03/17/2023 3:[address] 03/17/23 14:30 CT SCAN OF THE LUMBAR SPINE WITHOUT IV CONTRAST CLINICAL HISTORY: Fall. Ambulatory dysfunction. COMPARISON STUDY: CT scan of the lumbar spine dated 11/15/2020. MRI of the lumbar spine dated 12/30/2022. TECHNIQUE: CT scan of the lumbar spine was performed from the lower thoracic spine to the sacrum. Images are reviewed in the axial, sagittal, and coronal planes. IV contrast was not administered for this examination. A dose lowering technique was utilized adhering to the principles of ALARA. FINDINGS: The skeletal structures are osteopenic. There is no evidence of acute fracture or malalignment involving the lumbar spine. A subacute-appearing burst type compression fracture is seen involving the body of L1. Loss of height is similar to the 12/30/2022 MRI examination. There are minimally retropulsed fragments, with no significant acquired compromise of the central canal. Vertebral body height is otherwise maintained throughout the lumbar spine. There is minimal anterolisthesis of L4-L5. Alignment is otherwise preserved. Small anterior and lateral marginal osteophytes are seen throughout. The transverse and spinous processes appear intact. There is no spondylolysis. No lytic or blastic lesion is seen. There is mild multilevel degenerative disc space narrowing throughout the lumbar spine. There is no CT evidence of high-grade central canal stenosis. Paravertebral edema is seen at L1. The visualized sacrum and bony pelvis appear intact. An IVC filter is noted within a left pelvic vein anterior to the sacrum. This is unchanged from previous. There is fatty atrophy of the paraspinous musculature. There is moderate atherosclerotic calcification of the abdominal aorta which is normal in caliber. IMPRESSION: 1. There is no evidence of acute fracture or malalignment involving the lumbar spine. 2. A subacute burst type compression fracture of L1 is again noted. Loss of height is similar to the 12/30/2022 MRI. 3. Osteopenia and degenerative change as above. 4. An IVC filter is again seen within a left pelvic vein anterior to the sacrum. This is unchanged in position from previous. ACT 112: Negative or not required by law. Dictated: 03/17/2023 3:34 PM Transcribed: 03/17/2023 3:51 PM Tere [id number] [facility] [id number] Electronically signed by: Kel Brooks M.D. 03/17/2023 4:00 PM Lumbar Spine MRI 03/18/23 00:00 MRI OF THE LUMBAR SPINE WITHOUT IV CONTRAST CLINICAL HISTORY: Progressive weakness. L1 fracture. COMPARISON STUDY: CT scans of the lumbar spine dated 03/17/2023 and 11/15/2020. MRI of the lumbar spine dated 12/30/2022. TECHNIQUE: MRI of the lumbar spine was performed utilizing various T1 and T2- weighted sequences in the axial and sagittal planes. IV contrast was not administered for this examination. The examination is modestly degraded by motion artifact. FINDINGS: Lumbar spine: There is a late subacute burst type compression fracture of L1 with moderate loss of height. There is only faint residual marrow edema within the anterior aspect of the vertebral body. Loss of height has only modestly progressed as compared to the 12/30/2022 examination. Incompletely united fragment were better assessed on yesterday's CT scan. There is minimal retropulsion of fragments. No acute fracture is seen. Vertebral body height is otherwise maintained throughout the lumbar spine. Alignment is preserved. There is mild hyperlordosis. Anterior and lateral marginal osteophytes are seen throughout. The transverse and spinous processes appear intact. There is no evidence of spondylolysis. No destructive bony lesion is seen. Chronic degenerative endplate change is noted at several levels. There is no significant endplate edema. Intervertebral discs: Disc desiccation and loss of height is seen throughout the lumbar spine. Loss of height is severe at T12-L1 and moderate at L3-L4 and L4- L5. Spinal cord: The visualized spinal cord is normal in morphology and signal intensity. The conus medullaris terminates at the level of T12. The nerve roots of the cauda equina are normal in morphology. T12-L1: There is broad-based posterior disc bulge which abuts the transiting nerve roots. The central canal is clear. The neural foramina appear patent. L1: Fibrous or retropulsed by up to 4 mm as seen on axial image #5. There is no significant central canal stenosis. L1-L2: The central canal is clear. The neural foramina appear patent. L2-L3: There is minimal posterior disc bulge and hypertrophy of the ligamentum flavum. There is minimal central canal stenosis at this level with a minimum AP diameter of 8 mm. The neural foramina are patent. L3-L4: There is broad-based posterior disc bulge which abuts the transiting nerve roots. No significant acquired compromise of the central canal is seen. Lateral disc bulges contribute to bilateral subarticular stenosis, left greater than right. This may abut the exiting left L3 nerve root. Mild facet arthropathy is of no consequence. The neural foramina are patent. L4-L5: There is minimal posterior disc bulge. This abuts the transiting nerve roots. There is no significant acquired compromise of the central canal. Lateral disc bulges contribute to bilateral subarticular stenosis, left greater than right. This likely impinges on the exiting left L4 nerve root. In conjunction with facet arthropathy, there is mild bilateral neural foraminal narrowing. L5-S1: The central canal and neural foramina are patent. Sacrum: The visualized sacrum is normal in morphology and signal intensity. Soft tissues: There is fatty atrophy of the paraspinous musculature. The bladder wall is thickened/trabeculated indicating chronic outlet obstruction. The retroperitoneal structures are grossly unremarkable but incompletely evaluated. IMPRESSION: 1. Late subacute burst type compression fracture of L1. There is only faint residual marrow edema. 2. There are minimally retropulsed fragments which do not contribute to significant central canal stenosis. 3. Multilevel lumbosacral spondylosis as above. See discussion for detailed level by level analysis. 4. No acute fracture is seen and there is no destructive bone lesion identified. Dictated: 03/18/2023 8:06 PM Transcribed: 03/18/2023 11:31 PM Tere [id number] [facility] [id number] Electronically signed by: Kel Brooks M.D. 03/18/2023 11:49 PM Knee X-Ray 03/19/23 12:05 XR knee RT 1 or 2V routine CLINICAL HISTORY: Right knee swelling and pain. COMPARISON: Right knee radiographs March 15, 2018. FINDINGS: Alignment of the right knee arthroplasty is anatomic. There is no periprosthetic fracture or lucency. A moderate size joint effusion is present. There is also pre and infrapatellar soft tissue swelling. IMPRESSION: 1. Intact total right knee arthroplasty. No periprosthetic fracture or lucency. 2. Moderate size joint effusion. Pre and infrapatellar soft tissue swelling. ACT 112: Negative or not required by law. Electronically signed by: Jed Kwon M.D. 03/19/2023 12:41 PM Bone Scan Nuclear Medicine 03/23/23 14:35 NM bone 3 phase ltd CLINICAL HISTORY: right knee pain TECHNIQUE: Following the intravenous injection of 26 mCi of Tc-99m labeled MDP, immediate flow and blood pooling images of the bilateral knees were obtained. Additional selected static images of the bilateral knees were obtained after two hours. Comparison: Comparison is made to knee radiographs 03/19/2023 FINDINGS: There is asymmetrically increased uptake in the anterior right knee on flow and pool series. On delayed imaging, increased uptake is seen in the proximal aspect of the medial condyle of the femur. In particular, no focal areas of increased activity are seen to suggest either cellulitis or osteomyelitis. IMPRESSION: Focal uptake is seen in the medial condyle of the femur which may reflect loosening or other reactive changes. ACT 112: Negative or not required by law. Electronically signed by: Blas Naqvi M.D. 03/23/2023 3:00 PM Ordered Studies 03/17/23 14:30 CT cervical spine wo con Stat CT head/brain wo con Stat CT lumbar spine wo con Stat 03/18/23 00:00 MR lumbar spine wo con Routine Hospital Course (1) Ambulatory dysfunction: (2) Frequent falls: (3) Chronic knee pain after total replacement of both knee joints: (4) Compression fracture of L1 lumbar vertebra: (5) Idiopathic peripheral neuropathy: (6) Sensory ataxia: (7) Chronic cerebral ischemia: (8) Vascular dementia: (9) PAF (paroxysmal atrial fibrillation): Plan Patient is a 78 yr male who has a significant past medical history of vascular dementia, HTN, HLD, ARIS, moderate persistent asthma, PAF on warfarin, sick sinus syndrome, permanent pacemaker in place, chronic DVT, GERD, chronic ITP and CKD stage III presents to ED secondary to recent fall and inability to care for self at home. Patient presented from home with ambulatory dysfunction and frequent falls. Ambulatory dysfunction Frequent falls Chronic knee pain after total replacement of both knee joints, and right knee exchange Subacute compression fracture of L1 with 30% vertebral volume loss Idiopathic peripheral neuropathy with sensory ataxia --Lumbar CT and lumbar MRI - subacute burst type compression fracture of L1 present, similar to 12/2022 --Bone Scan:Focal uptake is seen in the medial condyle of the femur which may reflect loosening or other reactive changes. --Check Vit B12 levels -- Fall precautions PT OT --Orthopedic spine evaluated - Dr. Walker recommends mobilizing with PT, appropriate medication management, possible placement. Does not have anything that would be of an operative nature. Ortho consulted due to right knee pain and right knee effusion. Right knee XR shows moderate size joint effusion; doubt infection - afebrile, no leukocytosis, minimal pain with movement. Case discussed with Artemio Freitas PA-C by prior provider. Patient follows with Dr. Andrews -- Discussed with orthopedics Dr. Bear on 03/24/2023 regarding bone scan results. Recommends to follow-up as outpatient. Insurance denied rehab placement given improvement in physical activity Plan to be discharged home today Needs follow-up with orthopedics upon discharge PAF TBS status post PPM Continue sotalol and warfarin therapy INR 3.6> 2.8>2.7 Outpatient regimen is 1.25 mg Tuesday, , Tuesday and 2.5 mg all other days Resume Coumadin upon discharge Needs follow-up with Coumadin clinic upon discharge ARIS CPAP at bedtime Moderate persistent asthma No acute exacerbation Chronic, stable Continue inhalers CKD stage III Chronic, stable Baseline creatinine 1-1.2 Follows [facility], Dr. Willoughby History of DVT/PE On warfarin Fults filter in place INR therapeutic Vascular dementia Continue supportive care Namenda Chronic, stable, A&Ox3 at baseline, difficulty with short term DVT Px INR therapeutic Resume Coumadin as able Disposition Home Total Time Total Time Spent Total Time Spent (In Minutes): 54 minutes Discharge Plan Discharge Items Patient Disposition: Home - Home Health Services Reason For Visit: FALLS, LOW BACK PAIN Discharge Diagnosis: Ambulatory dysfunction Frequent falls Chronic knee pain after total replacement of both knee joints, and right knee exchange Subacute compression fracture of L1 with 30% vertebral volume loss Idiopathic peripheral neuropathy with sensory ataxia Supratherapeutic INR Activity: Per Instructions section Exercise/Sports: Gradually increase as tolerated Non-emergency contact: Primary Care Provider and Surgeon Call non-emergency contact if: you have any medication questions, your symptoms worsen, your pain is concerning for you and you have a fever Follow-up/Referrals: Leno Salas MD [Primary Care Provider] - Diet: Heart Healthy Addtl Attending Provider Instructions: Follow-up with your primary care physician in 1 week Follow-up with your orthopedic surgeon in 2-3 weeks --- Follow-up with Coumadin clinic for management of your PT/INR and dosing of your Coumadin. --- Get blood test (PT/INR) in 3 days and follow-up with Coumadin clinic for further instructions. Seek immediate medical attention if your symptoms reoccur or worsen Please take all medications as instructed on discharge list below. Please call if you have any questions or problems. You can reach a [facility] hospitalist on duty at 24 hours a day by calling [phone] Pending Studies at Discharge: No Stand-Alone Forms: My [facility] Health, Smoking Cessation Medications and DC Order Prescriptions: Continued atorvastatin 40 mg Tablet 80 mg PO QPM Qty: 0 fluticasone propionate 50 mcg/actuation Clarence,Suspension 2 spray INTRANASAL DAILY Qty: 0 cetirizine [Zyrtec] 10 mg Tablet 10 mg PO QAM Qty: 0 sertraline 100 mg Tablet 150 mg PO QPM Qty: 0 ferrous sulfate 325 mg (65 mg iron) Tablet 325 mg PO QAM Qty: 0 magnesium 250 mg Tablet 250 mg PO QAM Qty: 0 sotalol 80 mg Tablet 80 mg PO BID 90 Days Qty: 180 (DME) walker Misc See Rx Instructions .ROUTE .MEDSUPPLY Qty: 1 0RF Rx Instructions: Upright walker with 4 wheels and a seat; needs tall walker memantine 10 mg tablet 10 mg PO BID Qty: 180 1RF dutasteride 0.5 mg capsule 0.5 mg PO DAILY Qty: 90 3RF solifenacin [Vesicare] 10 mg tablet 10 mg PO DAILY Qty: 90 3RF tamsulosin 0.4 mg capsule 0.4 mg PO DAILY Qty: 90 3RF aspirin 81 mg tablet,chewable 81 mg PO DAILY ofloxacin 0.3 % Drops 4 drp OTIC (EAR) WK Rx Instructions: TWO DROPS BOTH EARS EVERY TUESDAY Men's 50 Plus Daily Formula 400-20-370 mcg Tablet 1 tab PO QAM Ocuvite Adult 50 Plus 250 mg (90 mg-160 mg) Capsule 1 cap PO QAM albuterol sulfate 90 mcg/actuation HFA aerosol inhaler 2 puff INHALATION Q6H PRN (Reason: Shortness Of Breath Or Wheezing) fluticasone propion-salmeterol [Advair HFA] 230-21 mcg/actuation HFA aerosol inhaler 2 puff INHALATION AMPM zafirlukast 20 mg tablet 10 mg PO BID warfarin 2.5 mg tablet 1.25 mg PO SUTUTH warfarin 2.5 mg tablet 2.5 mg PO [id number] Discharge Orders: Discharge Order (Routine); Ordered 03/24/23 Ordered By: James Lobo Admission Data Admit Date/Time: 03/17/23 16:39 Attending Provider: James Lobo Admit Provider: Carlos Engel Primary Care Provider: Leno Salas Other Providers: Chapito Walker; Carlos Engel; Rosario Dela Cruz; [facility]; Neymar Andrews
== END 2023-03-24 15:34 | disposition home or self-care (01) | DRG 552 ==
LOC: ED 13:49 → SUATTDRO 16:39 → 3W 16:39
DX: Z66 Do not resuscitate; Z86.718 Personal history of other venous thrombosis and embolism; T84.84XA Pain due to internal orthopedic prosthetic devices, implants and grafts, initial encounter; J45.40 Moderate persistent asthma, uncomplicated; G60.9 Hereditary and idiopathic neuropathy, unspecified; Z87.891 Personal history of nicotine dependence; Z95.0 Presence of cardiac pacemaker; F01.50 Vascular dementia, unspecified severity, without behavioral disturbance, psychotic disturbance, mood disturbance, and anxiety; G47.33 Obstructive sleep apnea (adult) (pediatric); Z86.711 Personal history of pulmonary embolism; I48.0 Paroxysmal atrial fibrillation; I12.9 Hypertensive chronic kidney disease with stage 1 through stage 4 chronic kidney disease, or unspecified chronic kidney disease; Z95.828 Presence of other vascular implants and grafts; S32.010A Wedge compression fracture of first lumbar vertebra, initial encounter for closed fracture; Y79.2 Prosthetic and other implants, materials and accessory orthopedic devices associated with adverse incidents; Z91.040 Latex allergy status; R29.6 Repeated falls; Z86.73 Personal history of transient ischemic attack (TIA), and cerebral infarction without residual deficits; R79.1 Abnormal coagulation profile; I49.5 Sick sinus syndrome; N18.30 Chronic kidney disease, stage 3 unspecified